=== PATIENT | male | born 1950 | race Caucasian/White ===

== ENCOUNTER 2017-09-12 12:26 | Inpatient (IN) | payer MEDICARE, OTHER ==
[~2017-09-12] VITALS: Ht 177.8 cm; Wt 106.3 kg
[2017-09-12] VITALS (9 sets, daily range): BP systolic 96–121; BP diastolic 58–82
[2017-09-12] MEDS ORDERED: IV NORMAL SALINE 1,000ML 1,000 ML IV SCH (12:29)
[2017-09-12] MEDS ORDERED: 0.9 % SODIUM CHLORIDE 10 ML DISP.SYRIN. IV PRN (12:30)
[2017-09-12] MEDS ORDERED: ASPIRIN 325 MG TABLET PO ONE ×2 (12:30→16:30)
--- NOTE | 2017-09-12 12:44 | PHYS DOC ---
Past History Past Medical History: A-Fib, Arrhythmia, Diabetes, GERD, High Cholesterol, Hypertension Past Surgical History: No Surgical History Smoking: Non-smoker Alcohol Use: None Drug Use: None Adult General Chief Complaint Chief Complaint: palpitations and shortness of breath [facility] HPI Patient is a pleasant 67-year-old male with a known history of diabetes, hypertension prior H or fibrillation that has been on therapy presents with palpitations and tachycardia. Patient's symptoms started as described as shortness of breath with a "" racing heartbeat he was at rest that time. He said the symptoms were intermittent but this morning when checking his blood pressure he noted it was low and he was getting some dizziness with the symptoms. He denied any chest pain, denies any change in medications, denies any shortness of breath at this time but did have some intermittently over the course of evening. Patient denies any nausea, vomiting at this time he did have some last night with symptoms. 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 Differential diagnosis: Acute myocardial ischemia, heart failure, cardiac tamponade, bronchospasm, pulmonary embolism, pneumothorax, pulmonary infection i.e. bronchitis or pneumonia, upper airway obstruction, anaphylaxis, aspiration , psychogenic, pulmonary contusion, toxidrome, pneumomediastinum, noncardiogenic pulmonary edema or ARDS, COPD, tuberculosis, cystic fibrosis, asthma, high altitude pulmonary edema, valvular dysfunction, cardiac dysrhythmia , stroke, neuromuscular diseases like myasthenia gravis gravis, ALS, Guillain- Moeller syndrome, metabolic acidosis to include diabetic ketoacidosis, sepsis, and obstructive disorders like massive obesity Review of Systems Review of Systems Constitutional: Denies fever or chills [] Eyes: Denies change in visual acuity, redness, or eye pain [] HENT: Denies nasal congestion or sore throat [] Respiratory: Denies cough positive for shortness of breath Cardiovascular: No additional information not addressed in HPI [] GI: Denies abdominal pain, vomiting, bloody stools or diarrhea . Positive for nausea[] : Denies dysuria or hematuria [] Musculoskeletal: Denies back pain or joint pain [] Integument: Denies rash or skin lesions [] Neurologic: Denies headache, positive for focal weakness or sensory changes positive for generalized weakness and weakness to the left side of his entire face including his eyebrow and forehead there is obvious droop consistent with Quan's palsy[] Endocrine: Denies polyuria or polydipsia [] All other systems were reviewed and found to be within normal limits, except as documented in this note. Current Medications Current Medications Current Medications Medications (Trade) Dose Ordered Sig/Joaquin Start Time Stop Time Status Last Admin Dose Admin Aspirin (Emy Aspirin) 325 mg 1X ONCE 09/12/17 12:30 09/12/17 12:31 UNV Sodium Chloride (Normal Saline Flush) 10 ml QSHIFT PRN 09/12/17 12:30 UNV Allergies Allergies Allergies Coded Allergies Type Severity Reaction Last Updated Verified No Known Drug Allergies 05/04/16 No Physical Exam Physical Exam Of the vital signs on the chart noted to be tachycardic and not tachypnea not hypoxic Constitutional: Well developed, well nourished, no acute distress, non-toxic appearance obvious asymmetry to the left side of the face with inability to move eyebrows. [] HENT: Normocephalic, atraumatic, bilateral external ears normal, oropharynx dry with poor dentition, no oral exudates, nose normal. [] Eyes: PERRLA, EOMI, conjunctiva normal, no discharge. [] Neck: Normal range of motion, no tenderness, supple, no stridor. [] Cardiovascular: Tachycardia with irregular irregular rhythm no gallops or rubs noted Lungs & Thorax: Bilateral breath sounds clear to auscultation [] Abdomen: Bowel sounds normal, soft, no tenderness, no masses, no pulsatile masses. [] Skin: Warm, dry, no erythema, no rash. [] Back: No tenderness, no CVA tenderness. [] Extremities: No tenderness, no cyanosis, no clubbing, ROM intact, no edema. [] Neurologic: Alert and oriented X 3, patient has facial palsy which involves the upper eyelid and eyebrow on the left consistent with Quan's palsy no other weakness or sensory changes are noted[] Psychologic: Affect normal, judgement normal, mood normal. [] EKG EKG []EKG read by me at 38 and 09/12/2017 patient's demonstrates a that is irregularly irregular with no discernible P waves there is heart rate of 112 QRS width is 82 units narrow but is irregular there is some inconsistent conduction there is no ST segment or T-wave changes consistent with acute cord ischemia. This looks like atrial fibrillation and RVR. But with closure examination of lead 2 this may be atrial flutter Repeated at approximately 1:26 PM 09/12/2017 177 which is within normal range. Interval is nondetectable as there is no P waves discernible associate with a QRS, QS width is 80 which is normal, QTC is 443 which is normal, looking at lead 2 patient has the apparent appearance of atrial flutter with 4:1 block. Radiology/Procedures Radiology/Procedures [] [address] [address] IMAGING REPORT Signed PATIENT: KEVIN VILLA ACCOUNT: [id number] : 1950 LOCATION: ER AGE: 67 SEX: M EXAM STATUS: PRE ER ORD. PHYSICIAN: DEMARCO ESCAMILLA MD REASON: chest pain PROCEDURE: PORTABLE CHEST 1V AP chest. History: Chest pain AP view was taken of the chest. Lungs are clear. Heart is normal in size without heart failure. There is no effusion. Impression: 1. No acute infiltrates. DICTATED AND SIGNED BY: SUSIE PICHARDO MD DATE: 09/12/17 125 CC: DEMARCO ESCAMILLA MD; MUSTAPHA CAVAZOS ~ Course & Med Decision Making Course & Med Decision Making Pertinent Labs and Imaging studies reviewed. (See chart for details) [] he presents with shortness of breath and sudden onset of palpitations with a history of end-stage fibrillation who is not miss his medications but began having symptoms of shortness of breath since last night about 8 PM. Patient comes in in A. fib and RVR patient's initial troponin, is negative but unfortunately his proBNP is 12,000. His chest x-rays unremarkable signs of congestive heart failure. Although patient is feeling markedly better patient may benefit from cardiology evaluation and bedside echocardiogram. He will also require additional troponins for the next 18 hours Differential diagnosis: Acute myocardial ischemia, heart failure, cardiac tamponade, bronchospasm, pulmonary embolism, pneumothorax, pulmonary infection i.e. bronchitis or pneumonia, upper airway obstruction, anaphylaxis, aspiration , psychogenic, pulmonary contusion, toxidrome, pneumomediastinum, noncardiogenic pulmonary edema or ARDS, COPD, tuberculosis, cystic fibrosis, asthma, high altitude pulmonary edema, valvular dysfunction, cardiac dysrhythmia , stroke, neuromuscular diseases like myasthenia gravis gravis, ALS, Guillain- Moeller syndrome, metabolic acidosis to include diabetic ketoacidosis, sepsis, and obstructive disorders like massive obesity Laboratory Tests Test 09/12/17 12:37 White Blood Count 8.6 x10^3/uL (4.0-11.0) Red Blood Count 4.77 x10^6/uL (4.30-5.70) Hemoglobin 16.0 g/dL (13.0-17.5) Hematocrit 46.6 % (39.0-53.0) Mean Corpuscular Volume 98 fL (79-100) Mean Corpuscular Hemoglobin 34 pg (25-35) Mean Corpuscular Hemoglobin Concent 34 g/dL (31-37) Red Cell Distribution Width 14.5 % (11.5-14.5) Platelet Count 178 x10^3/uL (140-400) Neutrophils (%) (Auto) 75 % (31-73) H Lymphocytes (%) (Auto) 16 % (24-48) L Monocytes (%) (Auto) 8 % (0-9) Eosinophils (%) (Auto) 1 % (0-3) Basophils (%) (Auto) 1 % (0-3) Neutrophils # (Auto) 6.5 x10^3uL (1.8-7.7) Lymphocytes # (Auto) 1.3 x10^3/uL (1.0-4.8) Monocytes # (Auto) 0.7 x10^3/uL (0.0-1.1) Eosinophils # (Auto) 0.1 x10^3/uL (0.0-0.7) Basophils # (Auto) 0.0 x10^3/uL (0.0-0.2) D-Dimer (Faye) 0.44 mg/L (0.00-0.50) Sodium Level 142 mmol/L (136-145) Potassium Level 4.0 mmol/L (3.5-5.1) Chloride Level 105 mmol/L (98-107) Carbon Dioxide Level 27 mmol/L (21-32) Anion Gap 10 (6-14) Blood Urea Nitrogen 19 mg/dL (8-26) Creatinine 0.8 mg/dL (0.7-1.3) Estimated GFR (Cockcroft-Gault) 96.4 Glucose Level 134 mg/dL (70-99) H Calcium Level 8.2 mg/dL (8.5-10.1) L Magnesium Level 2.0 mg/dL (1.8-2.4) Total Bilirubin 0.6 mg/dL (0.2-1.0) Direct Bilirubin 0.1 mg/dL (0.0-0.2) Aspartate Amino Transferase (AST) 14 U/L (15-37) L Alanine Aminotransferase (ALT) 28 U/L (16-63) Alkaline Phosphatase 58 U/L (46-116) Creatine Kinase 36 U/L (39-308) L Creatine Kinase MB (Mass) < 0.5 ng/mL (0.0-3.6) Creatine Kinase MB Relative Index 1.4 % (0-4) Troponin I Quantitative < 0.017 ng/mL (0-0.055) JQ-Pou-U-Type Natriuretic Peptide 1248 pg/mL (0-124) H Total Protein 6.2 g/dL (6.4-8.2) L Albumin 3.3 g/dL (3.4-5.0) L Lipase 116 U/L (73-393) Seed Cleaning Manager note: Dr. José Seed Cleaning Manager called at of the service service called at approximately 1:30 PM Consult called back at 1:31 PM Discussed the case I presented and they agreed with admission. Time of acceptance 1:31 PM "I have assessed this patient clinically and believe that their condition requires an admission to the hospital. After consulting the admitting physician about this case, they have asked that I admit this patient to their service as an inpatient based on the clinical presentation and my impression." Dragon Disclaimer Dragon Disclaimer This electronic medical record was generated, in whole or in part, using a voice recognition dictation system. Departure Departure: Impression: Primary Impression: Dyspnea Additional Impression: Atrial fibrillation with RVR Disposition: ADMITTED INPATIENT Admitting Physician: Deneen José Condition: GUARDED Referrals: MUSTAPHA CAVAZOS (PCP) Problem Qualifiers DEMARCO ESCAMILLA MD Sep 12, 2017 12:44
[2017-09-12] MEDS ORDERED: ASPIRIN 81 MG TAB.CHEW ONE (12:47)
[2017-09-12 12:51] LABS: BASO % 1 % (0-3); EOS # 0.1 x10^3/uL (0.0-0.7); EOS % 1 % (0-3); HEMATOCRIT 46.6 % (39.0-53.0); LYMPH # 1.3 x10^3/uL (1.0-4.8); LYMPH % 16 % (24-48); MEAN CORPUSCULAR HEMOGLOBIN 34 pg (25-35); MEAN CORPUSCULAR HGB CONC 34 g/dL (31-37); MEAN CORPUSCULAR VOLUME 98 fL (79-100); MONO # 0.7 x10^3/uL (0.0-1.1); MONO % 8 % (0-9); NEUT # 6.5 x10^3uL (1.8-7.7); NEUT % 75 % (31-73); PLATELET COUNT 178 x10^3/uL (140-400); RED BLOOD COUNT 4.77 x10^6/uL (4.30-5.70); RED CELL DISTRIBUTION WIDTH 14.5 % (11.5-14.5); WHITE BLOOD COUNT 8.6 x10^3/uL (4.0-11.0)
--- NOTE | 2017-09-12 12:53 | RAD ---
AP chest. History: Chest pain AP view was taken of the chest. Lungs are clear. Heart is normal in size without heart failure. There is no effusion. Impression: 1. No acute infiltrates.
[2017-09-12] MEDS ORDERED: VERAPAMIL 5 MG/2 ML VIAL. IV ONE ×3 (13:01→16:30)
[2017-09-12 13:13] LABS: ALBUMIN 3.3 g/dL (3.4-5.0); ALK PHOS 58 U/L (46-116); ALT (SGPT) 28 U/L (16-63); ANION GAP 10 (6-14); AST (SGOT) 14 U/L (15-37); BLOOD UREA NITROGEN 19 mg/dL (8-26); CALCIUM 8.2 mg/dL (8.5-10.1); CARBON DIOXIDE 27 mmol/L (21-32); CHLORIDE 105 mmol/L (98-107); CREATININE 0.8 mg/dL (0.7-1.3); DIRECT BILIRUBIN 0.1 mg/dL (0.0-0.2); GFR 96.4; GLUCOSE 134 mg/dL (70-99); LIPASE 116 U/L (73-393); SODIUM 142 mmol/L (136-145); TOTAL BILIRUBIN 0.6 mg/dL (0.2-1.0); TOTAL PROTEIN 6.2 g/dL (6.4-8.2)
[2017-09-12] MEDS ORDERED: ACETAMINOPHEN 325 MG TABLET PO PRN (13:45)
[2017-09-12] MEDS ORDERED: ONDANSETRON PF 4 MG/2 ML VIAL. IV PRN (13:45)
[2017-09-12] MEDS ORDERED: LISI2.5T PO (15:25)
[2017-09-12] MEDS ORDERED: CARV6.252 PO (15:25)
[2017-09-12] MEDS ORDERED: OXYC-328 PO (15:25)
[2017-09-12] MEDS ORDERED: ASPI-630 PO (15:25)
[2017-09-12] MEDS ORDERED: CANA300T PO (15:25)
[2017-09-12] MEDS ORDERED: POTA90TA2 PO (15:25)
[2017-09-12] MEDS ORDERED: IBUP800T19 PO (15:25)
[2017-09-12] MEDS ORDERED: SIMV20TA3 PO (15:25)
[2017-09-12] MEDS ORDERED: PRED5TAB PO (15:25)
[2017-09-12] MEDS ORDERED: ACETAMINOPHEN 500 MG TABLET PO PRN (16:30)
--- NOTE | 2017-09-12 16:44 | EKG ---
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
[2017-09-12] MEDS ORDERED: DIGOXIN IV 500 MCG/2 ML AMPUL. IV ONE ×2 (17:00→19:45)
[2017-09-12] MEDS ORDERED: oxyCODONE/APAP 10/325 1 TAB TABLET PO SCH (17:00)
[2017-09-12] MEDS: ENOXAPARIN ** NOTE DOSE ** SYRINGE SQ SCH (17:04)
[2017-09-12] MEDS: CARVEDILOL 6.25 MG TABLET PO SCH (17:05)
[2017-09-12] MEDS ORDERED: MORPHINE SULFATE 2 MG/ML DISP.SYRIN. IV PRN (17:30)
[2017-09-12] MEDS ORDERED: ZOLPIDEM 5 MG TABLET. PO PRN (17:30)
[2017-09-12] MEDS: HYDROcodone/APAP 10/325 1 TAB TABLET PO PRN (17:59)
--- NOTE | 2017-09-12 18:25 | HP ---
ADMIT DATE: 09/12/2017 REASON FOR ADMISSION: Atrial fibrillation with RVR. HISTORY OF PRESENT ILLNESS: This is a 67-year-old male who states yesterday he was not feeling quite right and he was able to take his pulse with a machine and it showed that it was 150. He called his primary care physician who told him to take 12.5 mg of Coreg and then another 12.5 in 2 hours. He did do that, but when he woke up this morning noticed that his heart rate was still 150. He could tell that it was racing, but did say that it was intermittent, did have a low blood pressure this morning as well. 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 He had previously had radiation and surgery. He also has a history of AFib with ablation 7 years ago, coronary artery disease with stent placement 7 years ago. MEDICATIONS: Reviewed and are available on the MAR. SOCIAL HISTORY: Tobacco, none. Alcohol, because of the pain on his face and not being controlled with Percocet, he has been drinking 6-8 ounces of rum a night. Did state that he did not have any rum last night. REVIEW OF SYSTEMS: No weight change. Positive for pain in his face and behind his ear. Positive for racing heart and some chest pain, associated with it. Denies shortness of breath. Denies fever or illness. IMMUNIZATIONS: Refuses flu and pneumonia shot. OBJECTIVE: VITAL SIGNS: Blood pressure 96/55, pulse in the Emergency Room was 135 and now it is currently is 102. GENERAL: He is in AFib with RVR. HEENT: Face with rafa complexion. He has a left Quan's palsy. He has a lesion behind the ear that has a small hole in the posterior ear with some drainage. The left face palpated very hard and also underneath his chin has a hardened area as well, probably the size of a golf ball. LUNGS: Clear. CARDIOVASCULAR: Irregular rhythm and rate. ABDOMEN: Soft, nontender. EXTREMITIES: With positive ankle edema. SKIN: Has extensive actinic keratosis on his hands and forearms. LABORATORY AND IMAGING DATA: CBC normal. Chemistry, troponins negative x 2. BNP 1248, glucose is 134, magnesium 2, potassium 4.0. D-dimer was normal. Chest x-ray: No acute infiltrates. EKG: AFib with RVR. ASSESSMENT: 1. Atrial fibrillation with rapid ventricular response, new onset. 2. 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 3. Left-sided Uqan's palsy. 4. Left-sided swelling and possible return of squamous cell with hardened masses. 5. Small pinpoint wound behind left ear with some drainage. 6. Chronic pain, unrelieved by Percocet. 7. History of atrial fibrillation with ablation. 8. History of coronary artery disease with stent placement. 9. Hypertension. 10. Diabetes. 11. Hypotension from verapamil. PLAN: The patient received 10 mg of IV verapamil in the Emergency Room around 01:00, this slowed down his rate quite a bit. However, after coming up to about 2 hours later, went back into a rapid ventricular rhythm and he was always in AFib. Blood pressure is somewhat low and precluded giving any further verapamil. He received 250 mg of digoxin x 1. We will treat his pain, cardiology consult and have to watch his hypotension from medications. JEFF JOYCE DO DR: VIC/gricel JOB#: [id number] / [id number]
[2017-09-12] MEDS: IV NORMAL SALINE 1,000ML 1,000 ML IV SCH (18:38)
[2017-09-12] MEDS: SIMVASTATIN 20 MG TABLET PO SCH (19:49)
[2017-09-12] MEDS: MORPHINE SULFATE 4 MG/ML DISP.SYRIN. IV PRN (20:55)
[2017-09-12] MEDS ORDERED: LORazepam 1 MG TABLET PO ONE (23:00)
[2017-09-13] VITALS (21 sets, daily range): BP systolic 86–133; BP diastolic 47–77
[2017-09-13] MEDS: MORPHINE SULFATE 4 MG/ML DISP.SYRIN. IV PRN ×5 (00:11→22:53)
[2017-09-13 00:27] LABS: CLARITY,URINE CLEAR; COLOR,URINE YELLOW
[2017-09-13 00:28] LABS: BACTERIA,URINE 0 /HPF (0-FEW); BILIRUBIN,URINE NEG (NEG); GLUCOSE,URINE 500 mg/dL (NEG); NITRITE,URINE NEG (NEG); RBC,URINE 0 /HPF (0-2); SQUAMOUS EPITHELIAL CELL,UR OCC /LPF; UROBILINOGEN,URINE 0.2 mg/dL (0.2 mg/dL); WBC,URINE OCC /HPF (0-4)
--- NOTE | 2017-09-13 02:50 | EKG ---
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
--- NOTE | 2017-09-13 02:55 | EKG ---
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
[2017-09-13] MEDS: IV NORMAL SALINE 1,000ML 1,000 ML IV SCH ×3 (04:47→17:31)
[2017-09-13] MEDS: ENOXAPARIN ** NOTE DOSE ** SYRINGE SQ SCH (06:35)
[2017-09-13] MEDS ORDERED: ASPIRIN 325 MG TABLET PO SCH (08:00)
[2017-09-13] MEDS: predniSONE 5 MG TABLET PO SCH (08:00)
[2017-09-13] MEDS: CARVEDILOL 6.25 MG TABLET PO SCH (08:00)
[2017-09-13] MEDS: NON FORMULARY ITEM (Canagliflozin (Invokana) 300 MG) PO SCH (09:00)
[2017-09-13] MEDS ORDERED: NON FORMULARY ITEM (Potassium Gluconate 90 MG) PO SCH (09:00)
[2017-09-13 09:20] LABS: BASO # 0.1 x10^3/uL (0.0-0.2); BASO % 1 % (0-3); EOS # 0.1 x10^3/uL (0.0-0.7); EOS % 1 % (0-3); HEMATOCRIT 43.4 % (39.0-53.0); HEMOGLOBIN 14.9 g/dL (13.0-17.5); LYMPH # 1.2 x10^3/uL (1.0-4.8); LYMPH % 14 % (24-48); MEAN CORPUSCULAR HEMOGLOBIN 33 pg (25-35); MEAN CORPUSCULAR HGB CONC 34 g/dL (31-37); MEAN CORPUSCULAR VOLUME 98 fL (79-100); MONO # 0.7 x10^3/uL (0.0-1.1); MONO % 8 % (0-9); NEUT # 6.2 x10^3uL (1.8-7.7); NEUT % 76 % (31-73); PLATELET COUNT 157 x10^3/uL (140-400); RED BLOOD COUNT 4.45 x10^6/uL (4.30-5.70); RED CELL DISTRIBUTION WIDTH 13.8 % (11.5-14.5); WHITE BLOOD COUNT 8.2 x10^3/uL (4.0-11.0)
[2017-09-13 09:33] LABS: ALBUMIN 2.8 g/dL (3.4-5.0); CREATININE 0.7 mg/dL (0.7-1.3); GFR 112.5; POTASSIUM 4.3 mmol/L (3.5-5.1); TOTAL BILIRUBIN 0.5 mg/dL (0.2-1.0); TOTAL PROTEIN 5.7 g/dL (6.4-8.2)
[2017-09-13] MEDS ORDERED: METOPROLOL TART IMMED RELEASE 50 MG TABLET PO ONE (13:30)
[2017-09-13] MEDS ORDERED: CALCIUM CARBONATE 500 MG TAB.CHEW ONE (14:13)
[2017-09-13] MEDS ORDERED: IOHEXOL 300 MG/ML 75 ML VIAL. IV ONE (14:15)
[2017-09-13] MEDS ORDERED: CALCIUM CARBONATE 500 MG TAB.CHEW PO PRN (14:15)
--- NOTE | 2017-09-13 15:09 | RAD ---
PQRS Compliance Statement: One or more of the following individualized dose reduction techniques were utilized for this examination: 1. Automated exposure control 2. Adjustment of the mA and/or kV according to patient size 3. 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 TECHNIQUE: Helical CT imaging of the brain and of the facial bones is performed after 70 cc of Omnipaque 350 IV contrast. Findings: There is no midline shift or mass effect in the brain. Ventricles and sulci are normal for patient age. No abnormal intracranial enhancement in the brain is identified. Cordova-white matter differentiation is preserved. No extra-axial fluid collection. The globes and orbits are intact. The mastoid air cells are aerated. Paranasal sinuses are clear. No acute calvarial fracture. In the subcutaneous fat anterior and inferior to the left external auditory canal there is a rim-enhancing hypodense collection measuring up to 2 cm AP by 1.1 cm transverse by 3.8 cm craniocaudal. Fluid collection is well seen on coronal image 31 and axial image 30. The left parotid gland is surgically absent. There are a couple of surgical clips. No cervical adenopathy is seen. Minimal grade 1 anterolisthesis of C2 on C3. IMPRESSION: 1. Small subcutaneous abscess anterior and inferior to the left external auditory canal. 2. Left parotid gland is surgically absent. Electronically signed by: Shine Ghosh MD (09/13/2017 3:06 PM) [id number]
[2017-09-13] MEDS ORDERED: ONDANSETRON PF 4 MG/2 ML VIAL. ONE (16:39)
[2017-09-13] MEDS ORDERED: ONDANSETRON PF 4 MG/2 ML VIAL. IV PRN (17:15)
--- NOTE | 2017-09-13 19:00 | PDOC2 ---
CONSULT Date of Admission DATE: 09/13/17 TIME: 18:50 Reason for Consult: Atrial fibrillation, paroxysmal. Referring Physician: Requesting physician: Deneen José DO Chief Complaint Palpitations. 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 He has not had atrial fibrillation ever since his ablation. However, on Wednesday night, he developed palpitations. He felt as though his heart was going fast and irregular. He did not seek immediate medical attention at that time. However, when the palpitations persisted, he presented to [facility] on 09/12/2017. He was found to be in atrial fibrillation with rapid ventricular rate. A Cardiology consultation was then requested. He denies any chest discomfort, dyspnea, paroxysmal nocturnal dyspnea, orthopnea, lightheadedness, syncope, or lower extremity edema. Cardiovascular: AFIB, CAD, HTN, UT, hyperipidemia Family History He does not know of any family history of premature coronary artery disease. Smoke: No ALCOHOL: occassional Drugs: None Current Medications Current Medications Aspirin (Emy Aspirin) 325 mg 1X ONCE PO Last administered on 09/12/17at 12:55 ; Start 09/12/17 at 12:30; Stop 09/12/17 at 13:01; Status DC Sodium Chloride 1,000 ml @ 1,000 mls/hr Q1H IV Last administered on 09/12/17at 12:54; Start 09/12/17 at 12:29; Stop 09/12/17 at 13:28; Status DC Sodium Chloride (Normal Saline Flush) 10 ml QSHIFT PRN IV AFTER MEDS AND BLOOD DRAWS; Start 09/12/17 at 12:30 Aspirin (Children'S Aspirin) 81 mg STK-MED ONCE .ROUTE ; Start 09/12/17 at 12:47 ; Stop 09/12/17 at 12:48; Status DC Verapamil HCl (Verapamil HCl) 10 mg 1X ONCE IV Last administered on 09/12/17at 13:03; Start 09/12/17 at 13:15; Stop 09/12/17 at 13:16; Status DC Verapamil HCl (Verapamil HCl) 5 mg STK-MED ONCE IV ; Start 09/12/17 at 13:01; Stop 09/12/17 at 13:04; Status DC Ondansetron HCl (Zofran) 4 mg PRN Q4HRS PRN IV NAUSEA/VOMITING; Start 09/12/17 at 13:45; Stop 09/13/17 at 13:44; Status DC Morphine Sulfate (Morphine 4mg Syringe) 4 mg PRN Q2HR PRN IV PAIN Last administered on 09/13/17at 13:50; Start 09/12/17 at 13:45; Stop 09/13/17 at 13:44 ; Status DC Sodium Chloride 1,000 ml @ 100 mls/hr Q10H IV Last administered on 09/13/17at 17:31; Start 09/12/17 at 13:38; Stop 09/13/17 at 13:37; Status DC Acetaminophen (Tylenol) 650 mg PRN Q4HRS PRN PO FEVER; Start 09/12/17 at 13:45 ; Stop 09/13/17 at 13:44; Status DC Verapamil HCl (Verapamil HCl) 5 mg 1X ONCE IV ; Start 09/12/17 at 16:30; Stop 09/12/17 at 16:55; Status DC Digoxin (Lanoxin) 250 mcg 1X ONCE IV Last administered on 09/12/17at 17:03; Start 09/12/17 at 17:00; Stop 09/12/17 at 17:01; Status DC Enoxaparin Sodium (Lovenox 100mg Syringe) 100 mg Q12H SQ Last administered on at 06:35; Start 09/12/17 at 17:00; Stop 09/13/17 at 13:36; Status DC Aspirin (p[employer] Technology Aspirin) 325 mg 1X ONCE PO ; Start 09/12/17 at 16:30; Stop 09/12 at 16:53; Status DC Aspirin (p[employer] Aspirin) 325 mg DAILYWBKFT PO Last administered on 09/13/17at 08: 00; Start 09/13/17 at 08:00 Carvedilol (Coreg) 6.25 mg BIDWMEALS PO Last administered on 09/13/17at 08:00; Start 09/12/17 at 17:00; Stop 09/13/17 at 13:18; Status DC Oxycodone/ Acetaminophen (Percocet 10/325) 1 tab QID PO ; Start 09/12/17 at 17: 00; Stop 09/12/17 at 17:43; Status DC Prednisone (Prednisone) 10 mg DAILY PO Last administered on 09/13/17at 08:00; Start 09/13/17 at 09:00 Simvastatin (Zocor) 20 mg HS PO Last administered on 09/12/17at 19:49; Start 05/22 at 21:00 Non-Formulary Medication (Canagliflozin (Invokana)) 300 mg DAILY PO Last administered on 09/13/17at 09:00; Start 09/13/17 at 09:00; Status UNV Non-Formulary Medication (Potassium Gluconate ) 90 mg DAILY PO ; Start 09/13/17 at 09:00; Stop 09/13/17 at 09:00; Status DC Acetaminophen (Tylenol) 1,000 mg Q8HRS PRN PO MODERATE PAIN; Start 09/12/17 at 16:30 Acetaminophen/ Hydrocodone Bitart (Lortab 10/325) 1 tab PRN Q4HRS PRN PO PAIN Last administered on 09/12/17at 17:59; Start 09/12/17 at 17:30 Zolpidem Tartrate (Ambien) 5 mg PRN QHS PRN PO INSOMNIA; Start 09/12/17 at 17: 30 Morphine Sulfate (Morphine 2mg Syringe) 2 mg PRN Q2HR PRN IV PAIN; Start at 17:30 Digoxin (Lanoxin) 250 mcg 1X ONCE IV Last administered on 09/12/17at 19:49; Start 09/12/17 at 19:45; Stop 09/12/17 at 19:46; Status DC Lorazepam (Ativan) 1 mg 1X ONCE PO Last administered on 09/12/17at 23:16; Start 09/12/17 at 23:00; Stop 09/12/17 at 23:07; Status DC Metoprolol Tartrate (Lopressor) 50 mg BID PO ; Start 09/13/17 at 21:00 Metoprolol Tartrate (Lopressor) 50 mg 1X ONCE PO Last administered on at 13:49; Start 09/13/17 at 13:30; Stop 09/13/17 at 13:31; Status DC Apixaban (Eliquis) 5 mg BID PO ; Start 09/13/17 at 21:00 Morphine Sulfate (Morphine 4mg Syringe) 4 mg PRN Q2HR PRN IV PAIN; Start at 14:00 Iohexol (Omnipaque 300 Mg/ml) 75 ml 1X ONCE IV Last administered on 09/13/17at 14:23; Start 09/13/17 at 14:15; Stop 09/13/17 at 14:16; Status DC Calcium Carbonate/ Glycine (Tums) 500 mg STK-MED ONCE .ROUTE ; Start 09/13/17 at 14:13; Stop 09/13/17 at 14:14; Status DC Calcium Carbonate/ Glycine (Tums) 500 mg PRN AFTMEALHC PRN PO INDIGESTION; Start 09/13/17 at 14:15 Ondansetron HCl (Zofran) 4 mg STK-MED ONCE .ROUTE ; Start 09/13/17 at 16:39; Stop 09/13/17 at 16:40; Status DC Ondansetron HCl (Zofran) 4 mg PRN Q6HRS PRN IV NAUSEA/VOMITING; Start 09/13/17 at 17:15 Cephalexin HCl (Keflex) 500 mg QID PO ; Start 09/13/17 at 21:00 Lactobacillus Rhamnosus (Culturelle) 1 cap BID PO ; Start 09/13/17 at 21:00 Pregabalin (Lyrica) 75 mg BID PO ; Start 09/13/17 at 21:00; Status UNV Active Scripts Active Reported Potassium Gluconate 90 Mg Tablet 90 Mg PO DAILY LAST DOSE GIVEN: DATE: TIME: NEXT DOSE DUE: DATE: TIME: Percocet 10-325 Mg Tablet (Oxycodone Hcl/Acetaminophen) 1 Each Tablet 1 Tab PO QID LAST DOSE GIVEN: DATE: TIME: NEXT DOSE DUE: DATE: TIME: Invokana (Canagliflozin) 300 Mg Tablet 300 Mg PO DAILY LAST DOSE GIVEN: DATE: TIME: NEXT DOSE DUE: DATE: TIME: Ibuprofen 800 Mg Tablet 1 Tab PO TID PRN LAST DOSE GIVEN: DATE: TIME: NEXT DOSE DUE: DATE: TIME: Aspirin 81 Mg Tab.chew 81 Mg PO DAILY LAST DOSE GIVEN: DATE: TIME: NEXT DOSE DUE: DATE: TIME: Prednisone 5 Mg Tablet 10 Mg PO DAILY 10 MG DOSE ON 09-12-17 IS LAST DOSE Carvedilol 6.25 Mg Tablet 6.25 Mg PO BIDWMEALS LAST DOSE GIVEN: DATE: TIME: NEXT DOSE DUE: DATE: TIME: Lisinopril 2.5 Mg Tablet 2.5 Mg PO DAILY LAST DOSE GIVEN: DATE: TIME: NEXT DOSE DUE: DATE: TIME: Simvastatin 20 Mg Tablet 20 Mg PO HS LAST DOSE GIVEN: DATE: TIME: NEXT DOSE DUE: DATE: TIME: Allergies: Coded Allergies: No Known Drug Allergies (Unverified , 05/04/16) Review of System Review of 10 organ systems is as per the history of present illness, otherwise negative. General: Alert, Oriented X3, Cooperative, No acute distress HEENT: EOMI, Mucous membr. moist/pink, Other (He has a left facial droop and evidence of previous left sided surgery near the posterior aspect of his left jaw.) Lungs: Clear to auscultation, Normal air movement Heart: Normal S1, Normal S2, No murmurs, Other ( Tachycardia with irregular rhythm.) Abdomen: Normal bowel sounds, Soft Extremities: No clubbing, No cyanosis, Normal pulses, No tenderness/swelling, Other ( Trace bilateral pretibial edema.) Skin: No rashes, No breakdown Neuro: Normal speech, Strength at 5/5 X4 ext, Reflexes 2+, Other (Cranial nerves 3-12 appear intact other than left facial droop.) Psych/Mental Status: Mental status NL, Mood NL VITALS Vital Signs Date Time Temp Pulse Resp B/P (MAP) Pulse Ox O2 Delivery O2 Flow Rate FiO2 09/13/17 18:12 86 20 114/66 (82) 96 Room Air 09/13/17 14:00 98.4 Labs Laboratory Tests Test 09/12/17 12:37 09/12/17 16:40 09/12/17 17:13 09/12/17 19:30 White Blood Count 8.6 x10^3/uL (4.0-11.0) Red Blood Count 4.77 x10^6/uL (4.30-5.70) Hemoglobin 16.0 g/dL (13.0-17.5) Hematocrit 46.6 % (39.0-53.0) Mean Corpuscular Volume 98 fL (79-100) Mean Corpuscular Hemoglobin 34 pg (25-35) Mean Corpuscular Hemoglobin Concent 34 g/dL (31-37) Red Cell Distribution Width 14.5 % (11.5-14.5) Platelet Count 178 x10^3/uL (140-400) Neutrophils (%) (Auto) 75 % (31-73) Lymphocytes (%) (Auto) 16 % (24-48) Monocytes (%) (Auto) 8 % (0-9) Eosinophils (%) (Auto) 1 % (0-3) Basophils (%) (Auto) 1 % (0-3) Neutrophils # (Auto) 6.5 x10^3uL (1.8-7.7) Lymphocytes # (Auto) 1.3 x10^3/uL (1.0-4.8) Monocytes # (Auto) 0.7 x10^3/uL (0.0-1.1) Eosinophils # (Auto) 0.1 x10^3/uL (0.0-0.7) Basophils # (Auto) 0.0 x10^3/uL (0.0-0.2) D-Dimer (Faye) 0.44 mg/L (0.00-0.50) Sodium Level 142 mmol/L (136-145) Potassium Level 4.0 mmol/L (3.5-5.1) Chloride Level 105 mmol/L (98-107) Carbon Dioxide Level 27 mmol/L (21-32) Anion Gap 10 (6-14) Blood Urea Nitrogen 19 mg/dL (8-26) Creatinine 0.8 mg/dL (0.7-1.3) Estimated GFR (Cockcroft-Gault) 96.4 Glucose Level 134 mg/dL (70-99) Calcium Level 8.2 mg/dL (8.5-10.1) Magnesium Level 2.0 mg/dL (1.8-2.4) Total Bilirubin 0.6 mg/dL (0.2-1.0) Direct Bilirubin 0.1 mg/dL (0.0-0.2) Aspartate Amino Transf (AST/SGOT) 14 U/L (15-37) Alanine Aminotransferase (ALT/SGPT) 28 U/L (16-63) Alkaline Phosphatase 58 U/L (46-116) Creatine Kinase 36 U/L (39-308) Creatine Kinase MB (Mass) < 0.5 ng/mL (0.0-3.6) Creatine Kinase MB Relative Index 1.4 % (0-4) Troponin I Quantitative < 0.017 ng/mL (0-0.055) < 0.017 ng/mL (0-0.055) < 0.017 ng/mL (0-0.055) OP-Btv-U-Type Natriuretic Peptide 1248 pg/mL (0-124) Total Protein 6.2 g/dL (6.4-8.2) Albumin 3.3 g/dL (3.4-5.0) Lipase 116 U/L (73-393) Thyroid Stimulating Hormone (TSH) 1.681 uIU/mL (0.358-3.740) Glucose (Fingerstick) 138 mg/dL (70-99) Test 09/12/17 21:16 09/12/17 23:45 09/13/17 09:10 Glucose (Fingerstick) 113 mg/dL (70-99) 102 mg/dL (70-99) Urine Collection Type Unknown Urine Color Yellow Urine Clarity Clear Urine pH 7.0 Urine Specific Alpine 1.020 Urine Protein Neg (NEG-TRACE) Urine Glucose (UA) 500 mg/dL (NEG) Urine Ketones (Stick) Neg mg/dL (NEG) Urine Blood Neg (NEG) Urine Nitrite Neg (NEG) Urine Bilirubin Neg (NEG) Urine Urobilinogen Dipstick 0.2 mg/dL (0.2 mg/dL) Urine Leukocyte Esterase Neg (NEG) Urine RBC 0 /HPF (0-2) Urine WBC Occ /HPF (0-4) Urine Squamous Epithelial Cells Occ /LPF Urine Bacteria 0 /HPF (0-FEW) White Blood Count 8.2 x10^3/uL (4.0-11.0) Red Blood Count 4.45 x10^6/uL (4.30-5.70) Hemoglobin 14.9 g/dL (13.0-17.5) Hematocrit 43.4 % (39.0-53.0) Mean Corpuscular Volume 98 fL (79-100) Mean Corpuscular Hemoglobin 33 pg (25-35) Mean Corpuscular Hemoglobin Concent 34 g/dL (31-37) Red Cell Distribution Width 13.8 % (11.5-14.5) Platelet Count 157 x10^3/uL (140-400) Neutrophils (%) (Auto) 76 % (31-73) Lymphocytes (%) (Auto) 14 % (24-48) Monocytes (%) (Auto) 8 % (0-9) Eosinophils (%) (Auto) 1 % (0-3) Basophils (%) (Auto) 1 % (0-3) Neutrophils # (Auto) 6.2 x10^3uL (1.8-7.7) Lymphocytes # (Auto) 1.2 x10^3/uL (1.0-4.8) Monocytes # (Auto) 0.7 x10^3/uL (0.0-1.1) Eosinophils # (Auto) 0.1 x10^3/uL (0.0-0.7) Basophils # (Auto) 0.1 x10^3/uL (0.0-0.2) Sodium Level 139 mmol/L (136-145) Potassium Level 4.3 mmol/L (3.5-5.1) Chloride Level 106 mmol/L (98-107) Carbon Dioxide Level 29 mmol/L (21-32) Anion Gap 4 (6-14) Blood Urea Nitrogen 16 mg/dL (8-26) Creatinine 0.7 mg/dL (0.7-1.3) Estimated GFR (Cockcroft-Gault) 112.5 BUN/Creatinine Ratio 23 (6-20) Glucose Level 121 mg/dL (70-99) Calcium Level 8.0 mg/dL (8.5-10.1) Magnesium Level 1.8 mg/dL (1.8-2.4) Total Bilirubin 0.5 mg/dL (0.2-1.0) Aspartate Amino Transf (AST/SGOT) 12 U/L (15-37) Alanine Aminotransferase (ALT/SGPT) 22 U/L (16-63) Alkaline Phosphatase 53 U/L (46-116) Total Protein 5.7 g/dL (6.4-8.2) Albumin 2.8 g/dL (3.4-5.0) Albumin/Globulin Ratio 1.0 (1.0-1.7) Images NUCLEAR STRESS TEST IMPRESSION (07/17/2015): Normal myocardial perfusion scan. Normal left ventricular systolic function. Ejection fraction: 61%. There is no stress induced left ventricular dilatation or increase in lung to heart ratio. There were no diagnostic stress induced ECG changes. The ECG was low voltage. There were frequent PAC's. There was a normal heart rate and a normal blood pressure response to stress. There was no chest pain during stress. Poor exercise tolerance. No previous study available for comparison. ECHOCARDIOGRAM IMPRESSION (07/17/2015): This is a technically difficult study due to body habitus. The left ventricular systolic function appears normal. There is aortic valve sclerosis and trace aortic regurgitation. The estimated pulmonary artery systolic pressure is normal at 29 mmHg. Compared to the report (images were not available for review) of the study dated 12/30/2010, there is no significant change. ECHOCARDIOGRAM IMPRESSION (07/26/2012): This is a technically difficult study. There is normal left ventricular chamber size and wall thickness with normal regional and global left ventricular systolic function with an estimated ejection fraction of 64%. The left ventricular diastolic parameters appear normal. There is mild aortic regurgitation. There is trace mitral, pulmonic and tricuspid regurgitation. The estimated pulmonary artery systolic pressure is normal at 34 mmHg. Compared to the study dated 12/30/2010, the left atrium now appears normal in size. ELECTROCARDIOGRAM (07/31/2013): Sinus rhythm with poor R wave progression, nonspecific T wave changes in the septal leads, and low voltage in the precordial leads. LIMITED ECHOCARDIOGRAM IMPRESSION (12/30/2010): There is normal left ventricular chamber size and wall thickness with normal regional and global left ventricular systolic function with an estimated ejection fraction of 63%. The left atrium appears mildly dilated. Compared to the study dated 08/28/2010, the left and right ventricular systolic function now appear normal. CARDIAC CATHETERIZATION AND PERCUTANEOUS CORONARY INTERVENTION IMPRESSION (08/27): 1. Mild pulmonary hypertension, but I was unable to confirm the actual pulmonary pressure since the Chelsea-Yolanda catheter would not advance into the pulmonary artery. Nevertheless, there was mild right ventricular hypertension indicative of at least mild pulmonary hypertension. 2. Normal left heart pressures. 3. Status post successful stent placement to the left circumflex coronary artery with a 2.5 x 23 mm bare metal Vision stent with 0% residual stenosis and JOVITA-III flow. 4. Status post successful stent placement to the mid right coronary artery with a 3 x 18 mm bare metal Mini-Vision stent with 0% residual stenosis and JOVITA-III flow. 5. There is [id number] left ventricular systolic dysfunction with an estimated ejection fraction of 30%. 6. There is [id number]-[id number] mitral regurgitation. 7. The patient remains in atrial fibrillation with a rapid ventricular rate. Assessment/Plan Atrial fibrillation, paroxysmal. As above, he has not had atrial fibrillation in quite some time as 1st week until. He now has recurrent atrial fibrillation that likely started on Wednesday. His heart rates are presently poorly controlled. I will change his carvedilol over to metoprolol ER. This may have less of a chance of causing hypotension compared to the carvedilol. I will also start the patient on oral anticoagulation with Eliquis 5 mg 2 times a day. When we start the Eliquis, he can stop the Lovenox he is currently receiving. If we can get his heart rates under control, then we can consider discharging him to home and have him return to the hospital for a cardioversion in approximately 6 weeks after therapy with oral anticoagulation. If we cannot get his heart rates under control, we may need to consider transfer to [facility] for a transesophageal echocardiogram and cardioversion. Coronary artery disease. He does not appear to be having any angina. His troponin levels are negative. Since we will be starting Eliquis for the atrial fibrillation, we can stop his aspirin. I will be adjusting his beta-ramon as outlined above. I recommend he continue on statin medication. Ischemic cardiomyopathy. He has a prior history of ischemic cardiomyopathy that improved following his coronary intervention and atrial fibrillation ablation. His last echocardiogram was in 2016. I recommend a follow-up echocardiogram at this time. Essential hypertension. He has actually been having some low blood pressures here in the hospital. I will adjust his beta-ramon as outlined above. Hypercholesterolemia, pure. Continue statin medication. Problems: MISSY ARREGUIN Jr, MD Sep 13, 2017 19:00
[2017-09-13] MEDS: SIMVASTATIN 20 MG TABLET PO SCH (21:04)
[2017-09-13] MEDS: LACTOBACILLUS RHAMNOSUS GG 1 CAPSULE. PO SCH (21:04)
[2017-09-13] MEDS: CEPHALEXIN 250 MG CAPSULE PO SCH (21:05)
[2017-09-13] MEDS: METOPROLOL TART IMMED RELEASE 50 MG TABLET PO SCH (21:05)
[2017-09-13] MEDS: APIXABAN 5 MG TABLET. PO SCH (21:05)
[2017-09-13] MEDS: PREGABALIN 75 MG CAPSULE PO SCH (21:05)
--- NOTE | 2017-09-13 21:25 | PN ---
DATE: 09/13/2017 SUBJECTIVE: The patient was admitted yesterday with atrial fibrillation, rapid ventricular response and he also complaining of left-sided facial pain. Apparently has squamous cell carcinoma diagnosed last year and has had surgery done at [facility] and was treated with radiation therapy by Dr. Dill, [facility]. He apparently was treated with verapamil only to cause marked hypotension and was given also digoxin only 250 mcg IV once. However, he continued to be in atrial fibrillation with rapid ventricular response aggravated by exertion. He denied any chest pain or shortness of breath. OBJECTIVE: GENERAL: When I examined him this afternoon, he was resting slightly propped up in bed, in no apparent distress, slightly pale, but no jaundice, cyanosis, or thyromegaly. No jugular venous distension. No limb edema. VITAL SIGNS: His heart rate was 98, blood pressure 119/68, temperature was 98, respiratory rate was 20, and oxygen saturation was 97% on room air HEAD, EYES, EARS, NOSE, AND THROAT: Showed normocephalic. He clearly has left-sided facial palsy with marked swelling on the left side of the face with a draining sinus below the left ear. NECK: Supple. HEART: Showed normal and regular first heart sound. CHEST: Shows central trachea, equal bilateral expansion, air entry to auscultation. No crepitation or rhonchi. ABDOMEN: Distended, soft, nontender. No guarding or rigidity. No organomegaly. All hernial orifice intact. Bowel sounds normal. NEUROLOGIC: He is awake, alert, has very clear left-sided facial palsy, otherwise all his other cranial nerves are intact. He moves extremities without difficulty, ambulates without assistance or assistive devices. 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 LABORATORY DATA: Showed a white cell count of 8200, hemoglobin 14.9, hematocrit 43, MCV 98, and platelet count of 157,000. Serum sodium was 139, potassium 4.3, chloride 106, bicarbonate 29, anion gap of 4, BUN 16, creatinine 0.7, estimated GFR was 112 mL per minute. His glucose was 121, calcium was 8, magnesium was 1.8. Total bilirubin, AST, ALT, alkaline phosphatase were normal. Total protein was 5.7, albumin 2.8. His D-dimer was 0.44. His chest x-ray showed that his lungs are clear, heart is normal in size without any heart failure. There is no effusion. 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 He has prominent facial nerve palsy and normally is not painful, has marked induration in the ____ temporomandibular joint with a draining sinus below the left ear. PLAN: My plan is to arrange for a CT scan of head and maxillofacial area. We have consulted the Cardiology team from [facility] for a better control of his heart rate and also check his thyroid function. TOM BARAHONA MD DR: DARYL/gricel JOB#: [id number] / [id number]
[2017-09-14] VITALS (16 sets, daily range): BP systolic 103–155; BP diastolic 49–87
--- NOTE | 2017-09-14 00:40 | CONS ---
DATE OF CONSULTATION: 09/12/2017 REFERRING PHYSICIAN: Dr. Strauss. REASON FOR CONSULTATION: Severe left facial pain. HISTORY OF PRESENT ILLNESS: This is a 67-year-old male who has had a longstanding history of left facial palsy -- Quan's palsy diagnosed in 06/2017, has had severe left facial pain for several months. 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 His left facial palsy has not improved. Current head CT scan revealed no acute intracranial process, but the CT scan of the left maxillofacial bone with a contrast revealed small subcutaneous abscess anterior and inferior to the left external auditory canal. The patient stated he has been treated with antibiotic -- clindamycin for approximately 1-1/2 months without significant relief of his symptoms. Currently, the patient was placed on Keflex. The patient has been on pain control medications including narcotics - oxycodone for several weeks prior to this admission. Gabapentin has failed to control his neuropathic symptoms. The reason for admission was paroxysmal atrial fibrillation with rapid ventricular response. He was treated with intravenous Rapamune, which caused hypotension, required a bolus of IV fluid and digoxin at 250 mcg once. He denies headaches, visual disturbances, nausea, vomiting, chest pain, shortness of breath. He denied dysarthria, dysphagia, weakness or paresthesia. The patient described his left facial pain as intermittent electrical severe pain confined to the left face in the trigeminal nerve distributions. PAST MEDICAL HISTORY: Significant for paroxysmal atrial fibrillation, congestive heart failure, ischemic cardiomyopathy, coronary artery disease status post stent placement, hypertension, hyperlipidemia, diabetes mellitus, skin cancer, and Quan's palsy as described above. PAST SURGICAL HISTORY: Significant for left parotid gland resection due to squamous cell carcinoma required radiation therapy, status post cardiac ablation several years ago. SOCIAL HISTORY: The patient denies smoking, but he drinks alcohol. He denies illicit drug use. CURRENT MEDICATIONS: Cephalexin 500 mg q.i.d., Eliquis 5 mg twice daily, metoprolol 50 mg twice daily, Zofran 4 mg q.6 hours IV p.r.n. for nausea and vomiting, morphine sulfate 4 mg. q.2 hours p.r.n. IV, Invokana 300 mg p.o. daily, prednisone 10 mg p.o. daily, simvastatin 20 mg at bedtime, Ambien 5 mg at bedtime for insomnia and hydrocodone/hydrocodone 10/325 mg q.4. hours p.r.n. for pain, alternate with Tylenol. ALLERGIES: No known drug allergies. REVIEW OF SYSTEMS: A 10-point review of system was performed as mentioned above in history of present illness. PHYSICAL EXAMINATION: GENERAL: Obese white male, not in acute distress. He weighs 234.3 pounds. VITAL SIGNS: Blood pressure is 121/64, respiratory rate 18, pulse is 109 irregular, temperature is 98.2, and oxygen saturation 97% on room air. HEENT: Atraumatic. The patient had a small abscess anterior and inferior left ear. NECK: Supple. Negative for carotid bruit, lymphadenopathy, thyromegaly or JVD. LUNGS: Clear to A and P. CARDIOVASCULAR: Regular rhythm, normal S1, S2. ABDOMEN: Soft. Bowel sounds positive. EXTREMITIES: Negative for cyanosis, clubbing or pitting edema. NEUROLOGIC: 1. MENTAL STATUS: The patient is alert and oriented x 3. Speech is fluent. There is no language dysfunction. Memory, judgment, and abstracting thinking are normal. The patient denies hallucination or delusion. 2. CRANIAL NERVES: Visual aquino are full. The pupils are reactive to light and accommodation. The extraocular movements are intact. There is no nystagmus. There is a complete left facial palsy -- Quan's palsy. The hearing is intact bilaterally. The palate is elevated symmetrically. Sternocleidomastoid muscles are powerful bilaterally. The patient shrugs his shoulders symmetrically, protrudes her tongue in the midline without fasciculation or atrophy. 3. MOTOR EXAMINATION: No focal muscle bulk was seen. The tone is normal. The strength is 5/5 throughout. 4. SENSORY EXAMINATION: Revealed diminished pinprick and light touch senses over the left face compared to that on the right side. Sensory examination elsewhere was normal to pinprick, light touch, vibratory, and position senses. Deep tendon reflexes were symmetric and hypoactive with absent Achilles responses. Gait: The patient has steady stance and normal coordination. Rapid alternating [id number] and [id number]. LABORATORY DATA: CBC revealed white blood cells of 8200, hemoglobin 14.9, hematocrit 43.4, platelet count 157,000. Chemistry revealed sodium of 139, potassium 4.3, chloride 106, CO2 29, BUN 16, creatinine 0.7, glucose 113, and calcium is 8. Liver enzymes were normal with low AST. Magnesium is 1.8. Urinalysis is negative for an urinary tract infection. D-dimer is 0.44. Nasal screen for MRSA is negative. DIAGNOSTIC DATA: Chest x-ray revealed no acute cardiopulmonary process. Initial head CT scan and left facial and maxillary bone revealed evidence of a small subcutaneous abscess anterior and inferior to the left external auditory canal. IMPRESSION: 1. Severe left facial pain described as a neuropathic pain, probably involved the left trigeminal nerve, previous surgery and radiation may have contributed to the current symptoms. 2. Long history of left facial palsy -- Quan's palsy with marked residual deficit. 3. Multiple medical problems include atrial fibrillation with current ventricular responses, hypertension, hyperlipidemia, diabetes mellitus, and status post removal of left parotid gland, and squamous cell carcinoma. RECOMMENDATIONS: 1. Continue with the current management initiated by Dr. Strauss, the patient has been on Lortab. 2. We will start the patient on Lyrica at 75 mg twice daily. 3. Continue with the current Cardiology recommendations. M Dilma SOLORIO MD DR: DANIEL/gricel JOB#: [id number] / [id number]
[2017-09-14 06:37] LABS: HEMOGLOBIN 14.7 g/dL (13.0-17.5); RED BLOOD COUNT 4.37 x10^6/uL (4.30-5.70); WHITE BLOOD COUNT 7.4 x10^3/uL (4.0-11.0)
[2017-09-14 06:52] LABS: CALCIUM 7.8 mg/dL (8.5-10.1); CREATININE 0.7 mg/dL (0.7-1.3); GFR 112.5; POTASSIUM 3.8 mmol/L (3.5-5.1)
[2017-09-14] MEDS: PREGABALIN 75 MG CAPSULE PO SCH ×2 (07:59→20:49)
[2017-09-14] MEDS: METOPROLOL TART IMMED RELEASE 50 MG TABLET PO SCH ×2 (07:59→20:49)
[2017-09-14] MEDS: predniSONE 5 MG TABLET PO SCH (07:59)
[2017-09-14] MEDS: APIXABAN 5 MG TABLET. PO SCH ×2 (08:00→20:49)
[2017-09-14] MEDS: LACTOBACILLUS RHAMNOSUS GG 1 CAPSULE. PO SCH ×2 (08:00→20:50)
[2017-09-14] MEDS: CEPHALEXIN 250 MG CAPSULE PO SCH ×4 (08:01→20:49)
[2017-09-14] MEDS: NON FORMULARY ITEM (Canagliflozin (Invokana) 300 MG) PO SCH (09:00)
--- NOTE | 2017-09-14 13:33 | PDOC ---
GIANLUCA ALTAMIRANO DIRECTIONAL DRILLER 09/14/17 1333: PROGRESS NOTES Diagnosis Problem Problems Medical Problems: (1) Atrial fibrillation with RVR Status: Acute (2) Dyspnea Status: Acute Assessment Problems Atrial fibrillation/flutter, paroxysmal. History of ablation. Possible triggered by the 8oz of Alcohol he had prior to bedtime on Wednesday. His rates and blood pressure are better controlled with the Metoprolol 50 BID. Started on oral anticoagulation with Eliquis 5 mg 2 times a day. If Rates are controlled with his physical therapy this afternoon he can discharge home. We will have him return to the hospital for a cardioversion in approximately 6 weeks after therapy with oral anticoagulation. If we cannot get his heart rates under control, we may need to consider transfer to [facility] for a transesophageal echocardiogram and cardioversion. Coronary artery disease., Asymptomatic. Continue current medical therapy Ischemic cardiomyopathy. He has a prior history of ischemic cardiomyopathy that improved following his coronary intervention and atrial fibrillation ablation. echocardiogram pending Essential hypertension, improved today. Continue current therapy Hypercholesterolemia, pure. Continue statin medication. Problems: Subjective He is sitting up in bed with his at bedside and reports feeling better. When he got up for breakfast this morning his heart rate did get into the 150s but seem to come down once he had his metoprolol on board. He slept well last night has not had any chest pain or shortness of breath. The symptoms of palpitations have improved. Objective Vital Signs Date Time Temp Pulse Resp B/P (MAP) Pulse Ox O2 Delivery O2 Flow Rate FiO2 09/14/17 12:45 98.4 74 20 120/82 (95) 98 Room Air Intake and Output 09/14/17 07:00 Intake Total 3880 ml Balance 3880 ml Intake Oral 1880 ml IV Total 2000 ml # Voids 7 Abdomen: Normal bowel sounds, Soft, No tenderness Heart: Regular rate, Other (Irregular rhythm with systolic murmur) Extremities: No edema, Normal pulses General: Alert, Oriented X3, Cooperative HEENT: EOMI, Mucous membr. moist/pink Lungs: Clear to auscultation Psych/Mental Status: Mental status NL, Mood NL Review of Relevant I have reviewed the following items asim (where applicable) has been applied. Labs Laboratory Tests Test 09/12/17 16:40 09/12/17 17:13 09/12/17 18:45 09/12/17 19:30 Troponin I Quantitative < 0.017 ng/mL (0-0.055) < 0.017 ng/mL (0-0.055) Glucose (Fingerstick) 138 mg/dL (70-99) Nasal Screen MRSA (PCR) Negative (Negative) Test 09/12/17 21:16 09/12/17 23:45 09/13/17 09:10 09/13/17 20:58 Glucose (Fingerstick) 113 mg/dL (70-99) 102 mg/dL (70-99) 152 mg/dL (70-99) Urine Collection Type Unknown Urine Color Yellow Urine Clarity Clear Urine pH 7.0 Urine Specific Hankinson 1.020 Urine Protein Neg (NEG-TRACE) Urine Glucose (UA) 500 mg/dL (NEG) Urine Ketones (Stick) Neg mg/dL (NEG) Urine Blood Neg (NEG) Urine Nitrite Neg (NEG) Urine Bilirubin Neg (NEG) Urine Urobilinogen Dipstick 0.2 mg/dL (0.2 mg/dL) Urine Leukocyte Esterase Neg (NEG) Urine RBC 0 /HPF (0-2) Urine WBC Occ /HPF (0-4) Urine Squamous Epithelial Cells Occ /LPF Urine Bacteria 0 /HPF (0-FEW) White Blood Count 8.2 x10^3/uL (4.0-11.0) Red Blood Count 4.45 x10^6/uL (4.30-5.70) Hemoglobin 14.9 g/dL (13.0-17.5) Hematocrit 43.4 % (39.0-53.0) Mean Corpuscular Volume 98 fL (79-100) Mean Corpuscular Hemoglobin 33 pg (25-35) Mean Corpuscular Hemoglobin Concent 34 g/dL (31-37) Red Cell Distribution Width 13.8 % (11.5-14.5) Platelet Count 157 x10^3/uL (140-400) Neutrophils (%) (Auto) 76 % (31-73) Lymphocytes (%) (Auto) 14 % (24-48) Monocytes (%) (Auto) 8 % (0-9) Eosinophils (%) (Auto) 1 % (0-3) Basophils (%) (Auto) 1 % (0-3) Neutrophils # (Auto) 6.2 x10^3uL (1.8-7.7) Lymphocytes # (Auto) 1.2 x10^3/uL (1.0-4.8) Monocytes # (Auto) 0.7 x10^3/uL (0.0-1.1) Eosinophils # (Auto) 0.1 x10^3/uL (0.0-0.7) Basophils # (Auto) 0.1 x10^3/uL (0.0-0.2) Sodium Level 139 mmol/L (136-145) Potassium Level 4.3 mmol/L (3.5-5.1) Chloride Level 106 mmol/L (98-107) Carbon Dioxide Level 29 mmol/L (21-32) Anion Gap 4 (6-14) Blood Urea Nitrogen 16 mg/dL (8-26) Creatinine 0.7 mg/dL (0.7-1.3) Estimated GFR (Cockcroft-Gault) 112.5 BUN/Creatinine Ratio 23 (6-20) Glucose Level 121 mg/dL (70-99) Calcium Level 8.0 mg/dL (8.5-10.1) Magnesium Level 1.8 mg/dL (1.8-2.4) Total Bilirubin 0.5 mg/dL (0.2-1.0) Aspartate Amino Transf (AST/SGOT) 12 U/L (15-37) Alanine Aminotransferase (ALT/SGPT) 22 U/L (16-63) Alkaline Phosphatase 53 U/L (46-116) Total Protein 5.7 g/dL (6.4-8.2) Albumin 2.8 g/dL (3.4-5.0) Albumin/Globulin Ratio 1.0 (1.0-1.7) Test 09/14/17 05:35 White Blood Count 7.4 x10^3/uL (4.0-11.0) Red Blood Count 4.37 x10^6/uL (4.30-5.70) Hemoglobin 14.7 g/dL (13.0-17.5) Hematocrit 42.0 % (39.0-53.0) Mean Corpuscular Volume 96 fL (79-100) Mean Corpuscular Hemoglobin 34 pg (25-35) Mean Corpuscular Hemoglobin Concent 35 g/dL (31-37) Red Cell Distribution Width 14.0 % (11.5-14.5) Platelet Count 143 x10^3/uL (140-400) Sodium Level 140 mmol/L (136-145) Potassium Level 3.8 mmol/L (3.5-5.1) Chloride Level 108 mmol/L (98-107) Carbon Dioxide Level 27 mmol/L (21-32) Anion Gap 5 (6-14) Blood Urea Nitrogen 15 mg/dL (8-26) Creatinine 0.7 mg/dL (0.7-1.3) Estimated GFR (Cockcroft-Gault) 112.5 Glucose Level 124 mg/dL (70-99) Calcium Level 7.8 mg/dL (8.5-10.1) Medications Current Medications Aspirin (Emy Aspirin) 325 mg 1X ONCE PO Last administered on 09/12/17at 12:55 ; Start 09/12/17 at 12:30; Stop 09/12/17 at 13:01; Status DC Sodium Chloride 1,000 ml @ 1,000 mls/hr Q1H IV Last administered on 09/12/17at 12:54; Start 09/12/17 at 12:29; Stop 09/12/17 at 13:28; Status DC Sodium Chloride (Normal Saline Flush) 10 ml QSHIFT PRN IV AFTER MEDS AND BLOOD DRAWS; Start 09/12/17 at 12:30 Aspirin (Children'S Aspirin) 81 mg STK-MED ONCE .ROUTE ; Start 09/12/17 at 12:47 ; Stop 09/12/17 at 12:48; Status DC Verapamil HCl (Verapamil HCl) 10 mg 1X ONCE IV Last administered on 09/12/17at 13:03; Start 09/12/17 at 13:15; Stop 09/12/17 at 13:16; Status DC Verapamil HCl (Verapamil HCl) 5 mg STK-MED ONCE IV ; Start 09/12/17 at 13:01; Stop 09/12/17 at 13:04; Status DC Ondansetron HCl (Zofran) 4 mg PRN Q4HRS PRN IV NAUSEA/VOMITING; Start 09/12/17 at 13:45; Stop 09/13/17 at 13:44; Status DC Morphine Sulfate (Morphine 4mg Syringe) 4 mg PRN Q2HR PRN IV PAIN Last administered on 09/13/17at 13:50; Start 09/12/17 at 13:45; Stop 09/13/17 at 13:44 ; Status DC Sodium Chloride 1,000 ml @ 100 mls/hr Q10H IV Last administered on 09/13/17at 17:31; Start 09/12/17 at 13:38; Stop 09/13/17 at 13:37; Status DC Acetaminophen (Tylenol) 650 mg PRN Q4HRS PRN PO FEVER; Start 09/12/17 at 13:45 ; Stop 09/13/17 at 13:44; Status DC Verapamil HCl (Verapamil HCl) 5 mg 1X ONCE IV ; Start 09/12/17 at 16:30; Stop 09/12/17 at 16:55; Status DC Digoxin (Lanoxin) 250 mcg 1X ONCE IV Last administered on 09/12/17at 17:03; Start 09/12/17 at 17:00; Stop 09/12/17 at 17:01; Status DC Enoxaparin Sodium (Lovenox 100mg Syringe) 100 mg Q12H SQ Last administered on at 06:35; Start 09/12/17 at 17:00; Stop 09/13/17 at 13:36; Status DC Aspirin (Professionali.ru Aspirin) 325 mg 1X ONCE PO ; Start 09/12/17 at 16:30; Stop 09/12 at 16:53; Status DC Aspirin (Professionali.ru Aspirin) 325 mg DAILYWBKFT PO Last administered on 09/13/17at 08: 00; Start 09/13/17 at 08:00; Stop 09/13/17 at 19:02; Status DC Carvedilol (Coreg) 6.25 mg BIDWMEALS PO Last administered on 09/13/17at 08:00; Start 09/12/17 at 17:00; Stop 09/13/17 at 13:18; Status DC Oxycodone/ Acetaminophen (Percocet 10/325) 1 tab QID PO ; Start 09/12/17 at 17: 00; Stop 09/12/17 at 17:43; Status DC Prednisone (Prednisone) 10 mg DAILY PO Last administered on 09/14/17at 07:59; Start 09/13/17 at 09:00 Simvastatin (Zocor) 20 mg HS PO Last administered on 09/13/17at 21:04; Start 05/22 at 21:00 Non-Formulary Medication (Canagliflozin (Invokana)) 300 mg DAILY PO Last administered on 09/14/17at 09:00; Start 09/13/17 at 09:00; Status UNV Non-Formulary Medication (Potassium Gluconate ) 90 mg DAILY PO ; Start 09/13/17 at 09:00; Stop 09/13/17 at 09:00; Status DC Acetaminophen (Tylenol) 1,000 mg Q8HRS PRN PO MODERATE PAIN; Start 09/12/17 at 16:30 Acetaminophen/ Hydrocodone Bitart (Lortab 10/325) 1 tab PRN Q4HRS PRN PO PAIN Last administered on 09/12/17at 17:59; Start 09/12/17 at 17:30 Zolpidem Tartrate (Ambien) 5 mg PRN QHS PRN PO INSOMNIA; Start 09/12/17 at 17: 30 Morphine Sulfate (Morphine 2mg Syringe) 2 mg PRN Q2HR PRN IV PAIN; Start at 17:30 Digoxin (Lanoxin) 250 mcg 1X ONCE IV Last administered on 09/12/17at 19:49; Start 09/12/17 at 19:45; Stop 09/12/17 at 19:46; Status DC Lorazepam (Ativan) 1 mg 1X ONCE PO Last administered on 09/12/17at 23:16; Start 09/12/17 at 23:00; Stop 09/12/17 at 23:07; Status DC Metoprolol Tartrate (Lopressor) 50 mg BID PO Last administered on 09/14/17at 07: 59; Start 09/13/17 at 21:00 Metoprolol Tartrate (Lopressor) 50 mg 1X ONCE PO Last administered on at 13:49; Start 09/13/17 at 13:30; Stop 09/13/17 at 13:31; Status DC Apixaban (Eliquis) 5 mg BID PO Last administered on 09/14/17at 08:00; Start 06/21 at 21:00 Morphine Sulfate (Morphine 4mg Syringe) 4 mg PRN Q2HR PRN IV PAIN Last administered on 09/13/17at 22:53; Start 09/13/17 at 14:00 Iohexol (Omnipaque 300 Mg/ml) 75 ml 1X ONCE IV Last administered on 09/13/17at 14:23; Start 09/13/17 at 14:15; Stop 09/13/17 at 14:16; Status DC Calcium Carbonate/ Glycine (Tums) 500 mg STK-MED ONCE .ROUTE ; Start 09/13/17 at 14:13; Stop 09/13/17 at 14:14; Status DC Calcium Carbonate/ Glycine (Tums) 500 mg PRN AFTMEALHC PRN PO INDIGESTION; Start 09/13/17 at 14:15 Ondansetron HCl (Zofran) 4 mg STK-MED ONCE .ROUTE ; Start 09/13/17 at 16:39; Stop 09/13/17 at 16:40; Status DC Ondansetron HCl (Zofran) 4 mg PRN Q6HRS PRN IV NAUSEA/VOMITING; Start 09/13/17 at 17:15 Cephalexin HCl (Keflex) 500 mg QID PO Last administered on 09/14/17at 08:01; Start 09/13/17 at 21:00 Lactobacillus Rhamnosus (Culturelle) 1 cap BID PO Last administered on at 08:00; Start 09/13/17 at 21:00 Pregabalin (Lyrica) 75 mg BID PO Last administered on 09/14/17at 07:59; Start at 21:00 Active Scripts Active Reported Potassium Gluconate 90 Mg Tablet 90 Mg PO DAILY LAST DOSE GIVEN: DATE: TIME: NEXT DOSE DUE: DATE: TIME: Percocet 10-325 Mg Tablet (Oxycodone Hcl/Acetaminophen) 1 Each Tablet 1 Tab PO QID LAST DOSE GIVEN: DATE: TIME: NEXT DOSE DUE: DATE: TIME: Invokana (Canagliflozin) 300 Mg Tablet 300 Mg PO DAILY LAST DOSE GIVEN: DATE: TIME: NEXT DOSE DUE: DATE: TIME: Ibuprofen 800 Mg Tablet 1 Tab PO TID PRN LAST DOSE GIVEN: DATE: TIME: NEXT DOSE DUE: DATE: TIME: Aspirin 81 Mg Tab.chew 81 Mg PO DAILY LAST DOSE GIVEN: DATE: TIME: NEXT DOSE DUE: DATE: TIME: Prednisone 5 Mg Tablet 10 Mg PO DAILY 10 MG DOSE ON 09-12-17 IS LAST DOSE Carvedilol 6.25 Mg Tablet 6.25 Mg PO BIDWMEALS LAST DOSE GIVEN: DATE: TIME: NEXT DOSE DUE: DATE: TIME: Lisinopril 2.5 Mg Tablet 2.5 Mg PO DAILY LAST DOSE GIVEN: DATE: TIME: NEXT DOSE DUE: DATE: TIME: Simvastatin 20 Mg Tablet 20 Mg PO HS LAST DOSE GIVEN: DATE: TIME: NEXT DOSE DUE: DATE: TIME: Vitals/I & O Vital Sign - Last 24 Hours 09/13/17 09/13/17 09/13/17 09/13/17 13:49 13:50 14:00 14:20 Temp 98.4 Pulse 160 92 Resp 18 B/P (MAP) 113/71 (85) Pulse Ox 96 O2 Delivery Room Air Room Air Room Air 09/13/17 09/13/17 09/13/17 09/13/17 16:00 16:00 17:02 17:04 Pulse 106 99 Resp 22 20 B/P (MAP) 86/47 (60) 116/67 (83) Pulse Ox 96 96 O2 Delivery Room Air Room Air Room Air Room Air 09/13/17 09/13/17 09/13/17 09/13/17 18:12 19:00 20:00 20:00 Temp 98.2 Pulse 86 98 86 Resp 20 18 20 B/P (MAP) 114/66 (82) 116/71 (86) 116/67 (83) Pulse Ox 96 98 97 O2 Delivery Room Air Room Air Room Air Room Air 09/13/17 09/13/17 09/13/17 09/13/17 21:05 21:21 22:00 22:53 Pulse 86 109 102 Resp 18 18 18 B/P (MAP) 116/67 121/64 (83) 133/69 (90) Pulse Ox 97 97 97 O2 Delivery Room Air Room Air Room Air 09/13/17 09/13/17 09/14/17 09/14/17 23:00 23:23 00:00 00:01 Pulse 92 102 Resp 18 16 18 B/P (MAP) 116/71 (86) 113/65 (81) Pulse Ox 98 98 96 O2 Delivery Room Air Room Air Room Air Room Air 09/14/17 09/14/17 09/14/17 09/14/17 02:00 03:00 04:00 04:00 Pulse 116 86 78 Resp 18 16 16 B/P (MAP) 112/66 (81) 117/75 (89) 114/73 (87) Pulse Ox 95 96 93 O2 Delivery Room Air Room Air Room Air Room Air 09/14/17 09/14/17 09/14/17 09/14/17 05:00 06:00 07:59 08:00 Pulse 100 104 90 Resp 18 16 B/P (MAP) 110/49 (69) 120/63 (82) Pulse Ox 95 97 O2 Delivery Room Air Room Air Room Air 09/14/17 09/14/17 09/14/17 09/14/17 08:49 10:10 11:00 11:14 Pulse 87 120 74 Resp 22 22 20 B/P (MAP) 103/56 (72) 119/69 (86) 107/72 (84) Pulse Ox 98 98 98 O2 Delivery Room Air Room Air Room Air 09/14/17 12:45 Temp 98.4 Pulse 74 Resp 20 B/P (MAP) 120/82 (95) Pulse Ox 98 O2 Delivery Room Air Intake and Output 09/13/17 09/13/17 09/14/17 15:00 23:00 07:00 Intake Total 2020 ml 1860 ml Balance 2020 ml 1860 ml MISSY BYRNES Jr, MD 09/15/17 0619: PROGRESS NOTES Assessment The patient was seen by Gianluca Altamirano APRN and I have reviewed her findings and plan and agree with above. Due to staffing constraints, we did not have an attending available on this day to see the patient. Missy Byrnes Jr., MD Problems: GIANLUCA ALTAMIRANO APRN Sep 14, 2017 13:33 MISSY BYRNES Jr, MD Sep 15, 2017 06:19
[2017-09-14] MEDS: MORPHINE SULFATE 4 MG/ML DISP.SYRIN. IV PRN ×3 (17:13→23:38)
[2017-09-14] MEDS ORDERED: DIGOXIN IV 500 MCG/2 ML AMPUL. IV ONE (18:30)
[2017-09-14] MEDS: SIMVASTATIN 20 MG TABLET PO SCH (20:50)
--- NOTE | 2017-09-14 21:23 | PN ---
DATE: 09/14/2017 SUBJECTIVE: The patient is resting, slightly propped up in bed, sleepy, but arousable. He denied any complaint. He was started yesterday by Dr. Mina on Lyrica 75 mg twice a day. We did arrange for him to have a CT scan of the head and facial bones, which basically showed there is no midline shift or mass effect in the brain, ventricles and sulci are normal for patient's age. No abnormal intracranial enhancement is identified. Joaquin and white matter differentiation is present, is preserved. No extraaxial fluid collection. The globes and orbits are intact. The mastoid air cells are aerated. Paranasal sinuses are clear. No acute calvarial fracture. The subcutaneous fat anterior and inferior to the left external auditory canal. There is a rim enhancing hypodense collection measuring up to 2 cm ____ 1.1 cm transversely, by 3.8 cm craniocaudal fluid collection is well seen with the coronal images. The T1 axial images, the left parotid gland is surgically absent. There are a couple of surgical clips. No cervical adenopathy seen. Minimal grade 1 anterolisthesis of C2 and C3. Impression is that there is a small subcutaneous abscess anterior inferior to the left external auditory canal and left parotid gland is surgically abdomen. I did start him on Keflex, although he obviously would require surgical drainage. I spoke with Dr. Dill who will basically reviewed the CT scan, will come and see him personally this afternoon. OBJECTIVE: GENERAL: On examining him this morning, he was resting slightly propped up in bed, no apparent distress, pale. No jaundice, no cyanosis, no thyromegaly. No jugular venous distension. No limb edema. VITAL SIGNS: Her heart rate was 87, blood pressure was 119/69, temperature was 98.2, respiratory rate was 16, and oxygen saturation was 98% on room air. The rest of clinical exam is stable. His intake over the last 24 hours was 1540, no output was recorded. His white cell count this morning was 7400, hemoglobin 15, hematocrit 42, MCV 96, and platelet count of 103,000. His serum sodium was 140, potassium 3.8, chloride 108, bicarbonate 27, anion gap of 5, BUN 15, creatinine 0.7. Estimated GFR was 112 mL per minute. His glucose was 124 and calcium was 7.8. His nasal screen for MRSA by PCR was negative. ASSESSMENT: 1. Paroxysmal atrial fibrillation with rapid ventricular response, currently on metoprolol tartrate 50 mg twice a day. He was also started on apixaban 5 mg twice a day. 2. Left-sided facial pain, probably due to involvement of the left facial nerve by the surgery and radiation treatment for which he is now on pregabalin 75 mg twice a day. 3. 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 He underwent a left parotidectomy and left modified neck dissection in 06/2016. Apparently, he declined to have adjuvant radiation at that time. He developed a PET/CT evidence of recurrence in parotid bed and lymph nodes and has received 75.25 Gy radiation to the involved sites of disease completed on 01/14/2017. He apparently was seen on 12/18/____, and at that time, there was minimal limb edema. No palpable adenopathy in the parotid bed or neck region. His left neck revealed stigmata of previous parotidectomy and normal overlying skin with minimal induration, the surgical radiation treatment. Other medical problems include type 2 diabetes mellitus. He apparently is also known to have coronary artery disease, status post PCI with the stent deployment, ischemic cardiomyopathy. He underwent also ablation at [facility], according to Dr. Dill. TOM BARAHONA MD DR: DARYL/gricel JOB#: [id number] / [id number]
--- NOTE | 2017-09-14 23:45 | PN ---
DATE: 09/14/2017 SUBJECTIVE: The patient stated his headache has been better in the last 24 hours. He is happy with Lyrica; however, he continues to have pus drainage from the abscess behind the left ear. The culture of this abscess was done yesterday and waiting for the results. He denies headaches, visual disturbances, nausea, vomiting, chest pain, shortness of breath, palpitation. OBJECTIVE: GENERAL: Well-developed, well-nourished white male, not in acute distress. VITAL SIGNS: Blood pressure 122/70, respiratory rate 18, pulse is 80 and regular, oxygen saturation 98% on room air. HEENT: Normocephalic, atraumatic. There is a purulent drainage coming from the abscess behind the left ear, otherwise, unremarkable. NECK: Supple. Negative for carotid bruit, lymphadenopathy or thyromegaly. LUNGS: Clear to A and P. CARDIOVASCULAR: Regular rhythm, normal S1, S2. ABDOMEN: Soft. Bowel sounds positive. EXTREMITIES: Negative for cyanosis, clubbing or pitting edema. NEUROLOGIC: Normal mental status. Cranial nerves consistent with left Quan's palsy. Otherwise, unremarkable. Motor Examination: No focal muscle bulk was seen. The tone is normal. The strength is 5/5 throughout. Sensory examination revealed normal pinprick, light touch, vibratory and position senses. Deep tendon reflexes were symmetric and active without pathologic responses. Gait: The stance is steady. LABORATORY DATA: CBC revealed white blood cells of 7.4 thousand, hemoglobin 14.7, hematocrit 42, platelet count of 143,000. Chemistry revealed sodium of 140, potassium 3.8, chloride 108, CO2 of 27, BUN 15, creatinine 0.7, glucose 124, calcium is 7.8. IMPRESSION: 1. Left facial neuropathic pain, probably represent trigeminal pain. 2. Left facial palsy. 3. Multiple medical problems include hypertension, atrial fibrillation, hyperlipidemia, diabetes mellitus, abscess with purulent drainage below the left ear. RECOMMENDATIONS: Continue with current medications and management. Await for abscess culture results. M Dilma SOLORIO MD DR: DANIEL/gricel JOB#: [id number] / [id number]
[2017-09-15] VITALS (8 sets, daily range): BP systolic 101–143; BP diastolic 54–83
[2017-09-15] MEDS ORDERED: DIGOXIN IV 500 MCG/2 ML AMPUL. IV ONE (00:15)
[2017-09-15] MEDS: HYDROcodone/APAP 10/325 1 TAB TABLET PO PRN (07:51)
[2017-09-15] MEDS: PREGABALIN 75 MG CAPSULE PO SCH (09:00)
[2017-09-15] MEDS ORDERED: DIGOXIN 125 MCG TABLET PO SCH (09:00)
[2017-09-15] MEDS: NON FORMULARY ITEM (Canagliflozin (Invokana) 300 MG) PO SCH (09:00)
[2017-09-15] MEDS: predniSONE 5 MG TABLET PO SCH (09:01)
[2017-09-15] MEDS: CEPHALEXIN 250 MG CAPSULE PO SCH ×2 (09:01→13:27)
[2017-09-15] MEDS: LACTOBACILLUS RHAMNOSUS GG 1 CAPSULE. PO SCH (09:01)
[2017-09-15] MEDS: APIXABAN 5 MG TABLET. PO SCH (09:02)
[2017-09-15] MEDS: METOPROLOL TART IMMED RELEASE 50 MG TABLET PO SCH (09:02)
--- NOTE | 2017-09-15 09:20 | CARD ---
MR#: [id number] Date of Study: 09/13/2017 Ordering Physician: MISSY ARREGUIN, Referring Physician: JEFF JOYCE, Tech: Grace Bland [facility] APPROVED REPORT EXAM: Two-dimensional and M-mode echocardiogram with Doppler and color Doppler. Other Information Quality : Average INDICATION Atrial Fibrillation Chest Pain 2D DIMENSIONS Left Atrium(2D)4.5 (1.6-4.0cm)IVSd1.2 (0.7-1.1cm) Aortic Root(2D)3.0 (2.0-3.7cm)LVDd4.4 (3.9-5.9cm) LVOT Diameter2.2 (1.8-2.4cm)PWd1.4 (0.7-1.1cm) LVDs3.1 (2.5-4.0cm)FS (%) 30.4 % SV50.3 mlLVEF(%)58.0 (>50%) Aortic Valve LVOT Peak Chuck.70.5cm/s Tricuspid Valve TR P. [id number]/sRAP [id number] TR Peak Gr.[id number] LEFT VENTRICLE The left ventricle is normal size. There is mild concentric left ventricular hypertrophy. The left ve ntricular systolic function is normal and the ejection fraction is within normal range. The Ejection Fraction is 55-60%. There is normal LV segmental wall motion. RIGHT VENTRICLE The right ventricle is normal size. There is normal right ventricular wall thickness. The right ventr icular systolic function is normal. ATRIA The left atrium is mildly dilated. The right atrium is mildly dilated. The interatrial septum is inta ct with no evidence for an atrial septal defect or patent foramen ovale as noted on 2-D or Doppler im aging. AORTIC VALVE The aortic valve is trileaflet. The aortic valve is mildly sclerotic. Doppler and Color Flow revealed mild to moderate aortic regurgitation. There is no significant aortic valvular stenosis. MITRAL VALVE There is no evidence of mitral valve prolapse. There is no mitral valve stenosis. Doppler and Color-f low revealed mild to moderate mitral regurgitation. TRICUSPID VALVE Doppler and Color Flow revealed mild to moderate tricuspid regurgitation. The PASP is 45mmHg. There i s no tricuspid valve stenosis. PULMONIC VALVE The pulmonic valve is not well visualized. Doppler and Color Flow revealed trace pulmonic valvular re gurgitation. There is no pulmonic valvular stenosis. GREAT VESSELS The aortic root is normal in size. The IVC is normal in size and but only partially collapses with in spiration. PERICARDIAL EFFUSION There is no pleural effusion. There is no evidence of significant pericardial effusion. Critical Notification Critical Value: No <Conclusion> There is mild concentric left ventricular hypertrophy. The left ventricular systolic function is normal and the ejection fraction is within normal range. The Ejection Fraction is 55-60%. Doppler and Color Flow revealed mild to moderate aortic regurgitation. Doppler and Color Flow revealed mild to moderate mitral regurgitation. Doppler and Color Flow revealed mild to moderate tricuspid regurgitation. The PASP is 45mmHg. There is no evidence of significant pericardial effusion. Signed by : Brayan Mina, Electronically Approved : 09/15/2017 09:19:43
--- NOTE | 2017-09-15 09:42 | PDOC ---
SUBJECTIVE Subjective: Mr. Locke is doing reasonably well this morning. He denies any chest pain or shortness of breath. He has not had any significant palpitations. He denies any lightheadedness or syncope. Exam Constitutional: Denies fever or chills Eyes: Denies change in visual acuity HENT: Denies nasal congestion or sore throat Respiratory: Denies cough or shortness of breath Cardiovascular: Denies chest pain or edema GI: Denies abdominal pain, nausea, vomiting, bloody stools or diarrhea : Denies dysuria Musculoskeletal: Denies back pain or joint pain Integument: Denies rash Neurologic: Denies headache, focal weakness or sensory changes Endocrine: Denies polyuria or polydipsia Lymphatic: Denies swollen glands Psychiatric: Denies depression or anxiety OBJECTIVE Vital Signs Vital Signs Date Time Temp Pulse Resp B/P (MAP) Pulse Ox O2 Delivery O2 Flow Rate FiO2 09/15/17 09:02 89 119/78 09/15/17 08:51 98 Room Air 09/15/17 07:51 16 09/14/17 20:00 98.1 Physical Exam Constitutional: Well developed, well nourished, no acute distress, non-toxic appearance. HENT: Normocephalic, atraumatic, bilateral external ears normal, oropharynx moist, no oral exudates, nose normal. Eyes: ERMIAS, EOMI, conjunctiva normal, no discharge. Neck: Normal range of motion, no tenderness, supple, no stridor. Cardiovascular: JVP not elevated. No carotid bruit. Nor precordial pulsations or heaves. Irregularly irregular, variable S1, 2/6 systolic murmur, no rubs or gallops. Thorax and Lungs: NOrmal respiration. Normal chest expansion. Normal to percuss. Equal breath sounds. No crackles. No wheeze. Abdomen: Bowel sounds normal, soft, no tenderness, no masses, no pulsatile masses. Skin: Warm, dry, no erythema, no rash. Back: No tenderness, no CVA tenderness. Extremities: Intact distal pulses, no tenderness, no cyanosis, no clubbing, ROM intact, no edema. Neurologic: Alert and oriented X 3, normal motor function, normal sensory function, facial droop. Psychologic: Affect normal, judgement normal, mood normal. Lab Laboratory Tests Test 09/14/17 20:56 Glucose (Fingerstick) 120 mg/dL (70-99) H MEDICATIONS Medications Current Medications Medications (Trade) Dose Ordered Sig/Joaquin Start Time Stop Time Status Last Admin Dose Admin Acetaminophen (Tylenol) 1,000 mg Q8HRS PRN 09/12/17 16:30 Acetaminophen/ Hydrocodone Bitart (Lortab 10/325) 1 tab PRN Q4HRS PRN 09/12/17 17:30 09/15/17 07:51 1 TAB Apixaban (Eliquis) 5 mg BID 09/13/17 21:00 09/15/17 09:02 5 MG Aspirin (Emy Aspirin) 325 mg DAILYWBKFT 09/13/17 08:00 09/13/17 19:02 DC 09/13/17 08:00 325 MG Aspirin (Children'S Aspirin) 81 mg STK-MED ONCE 09/12/17 12:47 09/12/17 12:48 DC Calcium Carbonate/ Glycine (Tums) 500 mg PRN AFTMEALHC PRN 09/13/17 14:15 Carvedilol (Coreg) 6.25 mg BIDWMEALS 09/12/17 17:00 09/13/17 13:18 DC 09/13/17 08:00 6.25 MG Cephalexin HCl (Keflex) 500 mg QID 09/13/17 21:00 09/15/17 09:01 500 MG Digoxin (Lanoxin) 125 mcg DAILY 09/15/17 09:00 09/15/17 09:01 125 MCG Enoxaparin Sodium (Lovenox 100mg Syringe) 100 mg Q12H 09/12/17 17:00 09/13/17 13:36 DC 09/13/17 06:35 100 MG Iohexol (Omnipaque 300 Mg/ml) 75 ml 1X ONCE 09/13/17 14:15 09/13/17 14:16 DC 09/13/17 14:23 75 ML Lactobacillus Rhamnosus (Culturelle) 1 cap BID 09/13/17 21:00 09/15/17 09:01 1 CAP Lorazepam (Ativan) 1 mg 1X ONCE 09/12/17 23:00 09/12/17 23:07 DC 09/12/17 23:16 1 MG Metoprolol Tartrate (Lopressor) 50 mg 1X ONCE 3/12/18 13:30 09/13/17 13:31 DC 09/13/17 13:49 50 MG Morphine Sulfate (Morphine 2mg Syringe) 2 mg PRN Q2HR PRN 09/12/17 17:30 Morphine Sulfate (Morphine 4mg Syringe) 4 mg PRN Q2HR PRN 09/13/17 14:00 09/14/17 23:38 4 MG Non-Formulary Medication (Canagliflozin (Invokana)) 300 mg DAILY 09/13/17 09:00 UNV 09/14/17 09:00 300 MG Non-Formulary Medication (Potassium Gluconate ) 90 mg DAILY 09/13/17 09:00 09/13/17 09:00 DC Ondansetron HCl (Zofran) 4 mg PRN Q6HRS PRN 09/13/17 17:15 Oxycodone/ Acetaminophen (Percocet 10/325) 1 tab QID 09/12/17 17:00 09/12/17 17:43 DC Prednisone (Prednisone) 10 mg DAILY 09/13/17 09:00 09/15/17 09:01 10 MG Pregabalin (Lyrica) 75 mg BID 09/13/17 21:00 09/15/17 09:00 75 MG Simvastatin (Zocor) 20 mg HS 09/12/17 21:00 09/14/17 20:50 20 MG Sodium Chloride 1,000 ml @ 100 mls/hr Q10H 09/12/17 13:38 09/13/17 13:37 DC 09/13/17 17:31 100 MLS/HR Sodium Chloride (Normal Saline Flush) 10 ml QSHIFT PRN 09/12/17 12:30 Verapamil HCl (Verapamil HCl) 5 mg 1X ONCE 09/12/17 16:30 09/12/17 16:55 DC Zolpidem Tartrate (Ambien) 5 mg PRN QHS PRN 09/12/17 17:30 09/14/17 20:50 5 MG PLAN Plan 1. Paroxysmal atrial fibrillation, currently rate controlled and on chronic anticoagulation with Eliquis 2. History of CAD s/p PCI to LCX and RCA with BMS, stable 3. History of ischemic cardiomyopathy with subsequent normalization of LV function 4. Mitral and aortic valve regurgitation, stable 5. Essential hypertension 6. Mixed hyperlipidemia Mr. Locke is doing relatively well this morning. He has remained hemodynamically stable. The patient denies any anginal symptoms, and has not had any significant palpitations. On examination, he does appear mostly euvolemic. I reviewed his telemetry this morning which demonstrates persistent atrial fibrillation with well-controlled ventricular rates on his current regimen of metoprolol. Echocardiogram demonstrated normal LV systolic function with mild to moderate MR, TR, and AI. This appears to be stable compared to prior studies. The patient is tolerating chronic anticoagulation with Eliquis. I will plan on continuing the patient's current regimen as prescibed, and have him follow up with his primary jewelry polisher, Dr. Carlos Byrnes, in a few weeks. If he remains in atrial fibrillation, the patient would be a good candidate for DCCV in 6 weeks. If he has recurrent bouts of atrial fibrillation, he may be a good candidate for an antiarrhythmic in the future. I appreciate recommendations by our consultants. I agree with current plans of care. We will sign off. Please call with any further questions. KRYSTIN SOLORIO MD Sep 15, 2017 09:42
--- NOTE | 2017-09-15 13:45 | PN ---
DATE: 09/15/2017 SUBJECTIVE: The patient denies any new medical neurological complaints. He continues to have mild drainage of the abscess behind the left ear. He denies headaches. His left facial pain has been improved on Lyrica. OBJECTIVE: GENERAL: Well-developed, well-nourished white male, not in acute distress. VITAL SIGNS: Blood pressure 119/78, respiratory rate 16, pulse is 89 and irregular, oxygen saturation 98% on room air. HEENT: Normocephalic, atraumatic, abscess in the anterior and lower left ear with purulent discharge. NECK: Supple. Negative for carotid bruit, lymphadenopathy, or thyromegaly. LUNGS: Clear to A and P. CARDIOVASCULAR: Irregularly irregular rhythm, normal S1-S2. ABDOMEN: Soft. Bowel sounds positive. EXTREMITIES: Negative for cyanosis, clubbing, or edema. NEUROLOGIC: Normal mental status. Cranial nerves positive for Quan's palsy. Motor, no focal muscle bulk seen. The tone is normal. The strength is 5/5 throughout. Sensory examination reveals diminished pinprick and light touch senses over the left face in the V1, V2 distributions of the trigeminal nerve. Deep tendon reflexes are symmetric and active without pathologic responses. Gait and coordinations are normal. IMPRESSION: 1. Left facial pain - improved on Lyrica. 2. Abscess, anterior and below the left ear with mild purulent drainage. 3. Multiple medical problems include atrial fibrillations, hypertension, hyperlipidemia, diabetes mellitus. RECOMMENDATIONS: 1. Continue with current management initiated by Dr. Lawson and by Dr. Strauss. 2. Await for the abscess discharge culture and adjust the antibiotics accordingly. 3. Follow up in [facility] in 2 weeks. M Dilma SOLORIO MD DR: DANIEL/gricel JOB#: [id number] / [id number]
[2017-09-15] MEDS ORDERED: PREG75CA PO (14:19)
[2017-09-15] MEDS ORDERED: CEPH-264 PO (14:19)
[2017-09-15] MEDS ORDERED: APIX5TAB3 PO (14:19)
[2017-09-15] MEDS ORDERED: DIGO125T PO (14:19)
[2017-09-15] MEDS ORDERED: METO50TA6 PO (14:19)
--- NOTE | 2017-09-15 18:44 | DS ---
DATE OF DISCHARGE: 09/15/2017 HOSPITAL COURSE: The patient is a 67-year-old male patient who was admitted on 09/12/2017, with a complaint of not feeling well, has palpitation and shortness of breath. He was found to be in atrial fibrillation with rapid ventricular response, left-sided facial pain and he was basically started on metoprolol and digoxin and also started on apixaban. His heart rate is much better controlled. He was seen by Dr. Mina who added pregabalin 75 mg twice a day. We did a swab of the abscess in his left side of the face, it did grow gram-positive cocci in cluster, for which we started him on oral Keflex 500 mg 4 times a day. He was seen in consultation by the insurance marketing specialist who basically recommended that the patient can be discharged to continue on digoxin and metoprolol as well as apixaban with a plan to do an outpatient cardioversion. PHYSICAL EXAMINATION: GENERAL: When I saw him today, he looked well and was clearly in no apparent respiratory distress, pale. No jaundice, cyanosis, or thyromegaly. No jugular venous distention. No limb edema. VITAL SIGNS: His heart rate was 80, blood pressure was 119/78, temperature was 98, respiratory rate was 16, and oxygen saturation was 97% on room air. HEAD, EYES, EARS, NOSE AND THROAT: Normocephalic. Status post resection of the left parotid gland and left-sided neck dissection. NECK: Supple, with no lymphadenopathy, no thyromegaly, no jugular venous distension, no audible bruits. HEART: Showed normal first and second heart sounds with no gallop, rub or murmur. CHEST: Clear to auscultation. No crepitation or rhonchi. ABDOMEN: Distended, soft, nontender. No guarding or rigidity. No organomegaly. Hernial orifice intact. Bowel sounds normal. NEUROLOGIC: He was awake, alert, responding appropriately. All cranial nerves intact except he has left-sided facial weakness, probably the effect of surgery and radiation therapy before; however, he moves all extremities without difficulty. He ambulates without assistance or assistive devices. His intake over the last 24 hours was 1400, no output was recorded. LABORATORY DATA: Showed a white cell count 7400, hemoglobin 14.7, hematocrit 42, MCV 96, and platelet count of 143,000. His chemistry showed a serum sodium of 140, potassium 3.8, chloride 108, bicarbonate 27, anion gap of 5, BUN 15, creatinine 0.7, estimated GFR was 112 mL per minute, his glucose 124, calcium was 7.8. His triglycerides 110, total cholesterol of 44, LDL cholesterol 78, VLDL was 22, and HDL cholesterol of 44, ratio was 3. His TSH was 1.681. His D-dimer was 0.44. DISCHARGE MEDICATIONS: The patient was discharged home to continue on following medications: Apixaban 5 mg twice a day, cephalexin 500 mg 3 times a day, digoxin 125 mcg once a day, metoprolol tartrate 50 mg twice a day, pregabalin 75 mg twice a day, aspirin 81 mg once a day, Invokana 300 mg p.o. daily, lisinopril 2.5 mg once a day. He was discharged on hydrocodone 10/325 one tablet every 4 hours as needed, potassium gluconate once a day, prednisone 10 mg once a day, simvastatin 20 mg at bedtime. I discontinued his carvedilol that should not be on ibuprofen because he will bleed as he is now on apixaban. DISCHARGE INSTRUCTIONS: He should follow up with Dr. Dill or Dr. José to repeat his CT scan of the head and facial bones to make sure that the abscess has resolved and he has an appointment with the cardiology team for outpatient cardioversion in 6 weeks' time. 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 He has also an abscess, growing gram-positive cocci, for which he is on Keflex. TOM BARAHONA MD DR: DARYL/gricel JOB#: [id number] / [id number]
== END 2017-09-15 15:10 | disposition home or self-care (01) | DRG 309 ==
LOC: ER 12:26 → 1 SOUTH 13:48 → ICU 16:05
PROVIDERS: ADMIT Family Medicine; ATTEND Family Medicine
DX: I48.0 Paroxysmal atrial fibrillation (principal); I50.22 Chronic systolic (congestive) heart failure; I11.0 Hypertensive heart disease with heart failure; I95.9 Hypotension, unspecified; L02.01 Cutaneous abscess of face; C44.92 Squamous cell carcinoma of skin, unspecified; E11.9 Type 2 diabetes mellitus without complications; F10.988 Alcohol use, unspecified with other alcohol-induced disorder; E78.2 Mixed hyperlipidemia; G50.0 Trigeminal neuralgia; G51.0 Bell's palsy; I08.0 Rheumatic disorders of both mitral and aortic valves; G47.33 Obstructive sleep apnea (adult) (pediatric); E66.9 Obesity, unspecified; I25.5 Ischemic cardiomyopathy; E78.00 Pure hypercholesterolemia, unspecified; G89.29 Other chronic pain; I25.10 Atherosclerotic heart disease of native coronary artery without angina pectoris; I48.92 Unspecified atrial flutter; K21.9 Gastro-esophageal reflux disease without esophagitis; Z79.01 Long term (current) use of anticoagulants; Z92.3 Personal history of irradiation; Z79.82 Long term (current) use of aspirin; Z79.899 Other long term (current) drug therapy; Z68.33 Body mass index [BMI] 33.0-33.9, adult; Z85.818 Personal history of malignant neoplasm of other sites of lip, oral cavity, and pharynx; Z95.5 Presence of coronary angioplasty implant and graft
CPT/HCPCS: 36415; 70460; 70487; 71045; 80048; 80053; 80061; 80076; 81001; 82553; 82947; 83690; 83735; 83880; 84443; 84484; 85025; 85027; 85379; 87070; 87641; 93005; 93306; 96361; 96374; J1160; J1650; J2270; J7512; Q9967; 99285-25; J7030

== ENCOUNTER 2017-10-24 09:33 | Emergency (ER) | payer OTHER ==
[~2017-10-24] VITALS: Ht 177.8 cm; Wt 106.1 kg
[~2017-10-24 09:33] MED LIST: APIX5TAB3 PO; ASPI-630 PO; CANA300T PO; CARV6.252 PO; CEPH-264 PO; DIGO125T PO; IBUP800T19 PO; LISI2.5T PO; METO50TA6 PO; OXYC-328 PO; POTA90TA2 PO; PRED5TAB PO; PREG75CA PO; SIMV20TA3 PO
[2017-10-24 09:37] VITALS: BP 129/98
--- NOTE | 2017-10-24 09:58 | PHYS DOC ---
Past History Past Medical History: A-Fib, Arrhythmia, CVA, Diabetes, GERD, High Cholesterol , Hypertension Past Surgical History: No Surgical History Smoking: Non-smoker Alcohol Use: None Drug Use: None Adult General Chief Complaint Chief Complaint: HEAD INJURY/TRAUMA [facility] HPI 67-year-old male patient with multiple medical problems and frequent emergency room visits on Eliquis state he miscalculated his distance physician spoke and hit his left side of forehead against the shelf was without loss of consciousness or fall and complaining of pain his head. Patient rated his pain 3 /10 and states that one episode of vomiting at home and while he was walking to emergency room, was not able to walk for a short time. Patient denies focal neuro deficit, nausea in emergency room, other injuries. Patient states he takes morphine for chronic left Quan's palsy facial pain and next dose epi is at 1045. Patient does not give a good history and getting angry with asking him questions. Review of Systems Review of Systems Constitutional: Denies fever or chills [] Eyes: Denies change in visual acuity, redness, or eye pain [] HENT: Denies nasal congestion or sore throat [] Respiratory: Denies cough or shortness of breath [] Cardiovascular: No additional information not addressed in HPI [] GI: Denies abdominal pain, nausea, vomiting, bloody stools or diarrhea [] : Denies dysuria or hematuria [] Musculoskeletal: Denies back pain or joint pain [] Integument: Denies rash or skin lesions [] Neurologic: Reports headache, chronic focal weakness , denies sensory changes [] Endocrine: Denies polyuria or polydipsia [] All other systems were reviewed and found to be within normal limits, except as documented in this note. Allergies Allergies Allergies Coded Allergies Type Severity Reaction Last Updated Verified No Known Drug Allergies 05/04/16 No Physical Exam Physical Exam Constitutional: Well nourished, mild distress, non-toxic appearance. [] HENT: Normocephalic, small contusion of left forehead, bilateral external ears normal, oropharynx moist, no oral exudates, nose normal left facial palsy. [] Eyes: PERRLA, EOMI, conjunctiva normal, no discharge. [] Neck: Normal range of motion, no tenderness, supple, no stridor. [] Cardiovascular:Heart rate regular rhythm, no murmur [] Lungs & Thorax: Bilateral breath sounds clear to auscultation [] Skin: Warm, dry, no erythema, no rash. [] Back: No tenderness, no CVA tenderness. [] Extremities: No tenderness, no cyanosis, no clubbing, ROM intact, no edema. [] Neurologic: Alert and oriented X 3, left facial palsy, no other focal neuro deficit, normal sensory function Psychologic: Affect normal, judgement normal, mood normal. [] Current Patient Data Vital Signs Vital Signs Date Time Temp Pulse Resp B/P (MAP) Pulse Ox O2 Delivery O2 Flow Rate FiO2 10/24/17 09:37 98.0 68 16 100 Room Air EKG EKG [] Radiology/Procedures Radiology/Procedures [] [address] [address] IMAGING REPORT Signed PATIENT: KEVIN VILLA ACCOUNT: [id number] : 1950 LOCATION: ER AGE: 67 SEX: M EXAM STATUS: REG ER ORD. PHYSICIAN: KIT EVANS MD REASON: head injury on Eliquis PROCEDURE: CT HEAD AND CERVICAL SPINE WO CT head without contrast. CT cervical spine without contrast. Technique: Noncontrast CT imaging of the head and cervical spine with multiplanar reconstructions was acquired. History: Fell and hit left side of head, head pain, neck pain. CT head findings: No intracranial hemorrhage, mass, hydrocephalus or infarction. No acute ischemic changes. The left parotid gland demonstrates asymmetric density and nodularity superior of a presumed surgical resection site with nodularity extending anteriorly of the external auditory canal as well as superior of the canal. Orbits, mastoids, paranasal sinuses and bones are unremarkable. Impression: No acute cranial CT abnormality. Surgical resection of the left parotid gland. There is a air-containing defect deep to the skin at the resection site with increased soft tissue density and nodularity extending superiorly both anterior and superior of the external auditory canal, this could represent changes from incision and drainage with recurrent or residual soft tissue infection or changes of recurrent/residual malignancy. This appears to be more prominent anterior and superior to the external auditory canal from CT imaging one month ago. CT cervical spine findings: Craniocervical junction is intact. Cervical vertebral body height and alignment intact. No fracture of the cervical spine. Multilevel spinal canal and neural foraminal stenoses due to disc osteophytes and uncovertebral and facet spurring. Lung apices and paraspinal tissues are unremarkable. Impression: No acute osseous injury of the cervical spine. Cervical disc disease. DICTATED AND SIGNED BY: WILLIS THOMSON MD DATE: 10/24/17 1016 CC: KIT EVANS MD; MUSTAPHA CAVAZOS ~ Course & Med Decision Making Course & Med Decision Making Pertinent Imaging studies reviewed. (See chart for details) []discharge: I've spoken with the patient and/or caregivers. I've explained the patient's condition, diagnosis and treatment plan based on information available to me at this time. I've answered the patient's and/or caregivers questions and addressed any concerns. The patient and/or caregivers have a good understanding the patient's diagnosis, condition and treatment plan as can be expected at this point. Vital signs have been stabilized. The patient's condition is stable for discharge from the emergency department. The patient will pursue further outpatient evaluation with her primary care provider or other designated consulting physician as outlined in the discharge instructions. Patient and/or caregivers are agreeable to this plan of care and follow-up instructions have been explained in detail. The patient and/or caregivers have received these instructions in written format and expressed understanding of these discharge instructions. The patient and her caregivers are aware that if any significant change in condition or worsening of symptoms should prompt him to immediately return to this of the closest emergency department. If an emergent department is not readily available I would encourage him to call 911. Dragon Disclaimer Dragon Disclaimer This electronic medical record was generated, in whole or in part, using a voice recognition dictation system. Departure Departure: Impression: Primary Impression: Head injury Additional Impression: Facial contusion Disposition: 01 HOME, SELF-CARE (At 1944) Condition: IMPROVED Referrals: MUSTAPHA CAVAZOS (PCP) Patient Instructions: Facial or Scalp Contusion Additional Instructions: Continue home medication Follow-up with your primary care physician in 3-5 days Return to ER if not getting better Problem Qualifiers KIT EVANS MD Oct 24, 2017 09:58
--- NOTE | 2017-10-24 10:38 | RAD ---
CT head without contrast. CT cervical spine without contrast. Technique: Noncontrast CT imaging of the head and cervical spine with multiplanar reconstructions was acquired. History: Fell and hit left side of head, head pain, neck pain. CT head findings: No intracranial hemorrhage, mass, hydrocephalus or infarction. No acute ischemic changes. The left parotid gland demonstrates asymmetric density and nodularity superior of a presumed surgical resection site with nodularity extending anteriorly of the external auditory canal as well as superior of the canal. Orbits, mastoids, paranasal sinuses and bones are unremarkable. Impression: No acute cranial CT abnormality. Surgical resection of the left parotid gland. There is a air-containing defect deep to the skin at the resection site with increased soft tissue density and nodularity extending superiorly both anterior and superior of the external auditory canal, this could represent changes from incision and drainage with recurrent or residual soft tissue infection or changes of recurrent/residual malignancy. This appears to be more prominent anterior and superior to the external auditory canal from CT imaging one month ago. CT cervical spine findings: Craniocervical junction is intact. Cervical vertebral body height and alignment intact. No fracture of the cervical spine. Multilevel spinal canal and neural foraminal stenoses due to disc osteophytes and uncovertebral and facet spurring. Lung apices and paraspinal tissues are unremarkable. Impression: No acute osseous injury of the cervical spine. Cervical disc disease.
== END 2017-10-24 10:58 | disposition home or self-care (01) ==
LOC: ER 09:33
DX: S09.90XA Unspecified injury of head, initial encounter (principal); S00.83XA Contusion of other part of head, initial encounter; I48.91 Unspecified atrial fibrillation; K21.9 Gastro-esophageal reflux disease without esophagitis; E78.00 Pure hypercholesterolemia, unspecified; E11.9 Type 2 diabetes mellitus without complications; I10 Essential (primary) hypertension; Z86.73 Personal history of transient ischemic attack (TIA), and cerebral infarction without residual deficits; W19.XXXA Unspecified fall, initial encounter; Y93.89 Activity, other specified; Y99.8 Other external cause status; Y92.89 Other specified places as the place of occurrence of the external cause
CPT/HCPCS: 70450; 72125; 99284-25

== ENCOUNTER 2018-05-11 13:07 | Emergency (ER) | payer OTHER ==
[~2018-05-11] VITALS: Ht 177.8 cm; Wt 77.9 kg
[2018-05-11] MEDS ORDERED: IV NORMAL SALINE 1,000ML 1,000 ML IV ONE (13:30)
[2018-05-11 13:43] LABS: BASO # 0.1 x10^3/uL (0.0-0.2); BASO % 1 % (0-3); EOS % 0 % (0-3); HEMATOCRIT 27.6 % (39.0-53.0); HEMOGLOBIN 9.3 g/dL (13.0-17.5); LYMPH # 0.4 x10^3/uL (1.0-4.8); LYMPH % 2 % (24-48); MEAN CORPUSCULAR HEMOGLOBIN 33 pg (25-35); MEAN CORPUSCULAR HGB CONC 34 g/dL (31-37); MEAN CORPUSCULAR VOLUME 97 fL (79-100); MONO # 0.7 x10^3/uL (0.0-1.1); MONO % 4 % (0-9); NEUT % 93 % (31-73); PLATELET COUNT 295 x10^3/uL (140-400); RED BLOOD COUNT 2.84 x10^6/uL (4.30-5.70); RED CELL DISTRIBUTION WIDTH 13.4 % (11.5-14.5); WHITE BLOOD COUNT 17.2 x10^3/uL (4.0-11.0)
--- NOTE | 2018-05-11 13:54 | PHYS DOC ---
Past History Past Medical History: A-Fib, Arrhythmia, CVA, Diabetes, GERD, High Cholesterol , Hypertension Past Surgical History: No Surgical History Smoking: Non-smoker Alcohol Use: None Drug Use: None Adult General Chief Complaint Chief Complaint: BACK PAIN OR INJURY HPI HPI 67-year-old male presents after 2 falls at home. The patient was released from [facility] yesterday. His admission was for generalized weakness. The patient got fatigued and a bit dizzy and slowly fell to the ground first thing this morning. He then laid back down and took a nap. He woke up feeling a bit better. He was getting ready to go somewhere around noon today when he got dizzy and off balance and thought that he was about past out. He was unable to grab anything and believes he lost consciousness. He is unsure how long he was down, but he believes he was unconscious for more than just a few seconds. He complains of some head pain, but he has chronic left-sided facial pain due to invasive skin cancer. Patient has a left-sided facial droop and is slow to answer questions at baseline. He is on high-dose narcotics due to his cancer diagnosis. Patient has had no fever or chills at home. He does believe that the drainage from his facial wound has increased today after the fall. Review of Systems Review of Systems Constitutional: Denies fever or chills [] Eyes: Denies change in visual acuity, redness, or eye pain [] HENT: Facial cancer lesion[] Respiratory: Denies cough or shortness of breath [] Cardiovascular: No additional information not addressed in HPI [] GI: Denies abdominal pain, nausea, vomiting, bloody stools or diarrhea [] : Denies dysuria or hematuria [] Musculoskeletal: Denies back pain or joint pain [] Integument: Denies rash or skin lesions [] Neurologic: Headache[] Endocrine: Denies polyuria or polydipsia [] All other systems were reviewed and found to be within normal limits, except as documented in this note. Current Medications Current Medications Current Medications Medications (Trade) Dose Ordered Sig/Joaquin Start Time Stop Time Status Last Admin Dose Admin Sodium Chloride 1,000 ml @ 1,000 mls/hr 1X ONCE 05/11/18 13:30 05/11/18 14:29 Allergies Allergies Allergies Coded Allergies Type Severity Reaction Last Updated Verified No Known Drug Allergies 05/04/16 No Physical Exam Physical Exam Constitutional: Well developed, well nourished, no acute distress, non-toxic appearance. [] HENT: 7 cm round area of erosion on the left side of the face just anterior to the left ear. There is a yellowish, thin drainage.[] Eyes: PERRLA, EOMI, conjunctiva normal, no discharge. [] Neck: Normal range of motion, no tenderness, supple, no stridor. [] Cardiovascular:Heart rate regular rhythm, no murmur [] Lungs & Thorax: Bilateral breath sounds clear to auscultation [] Abdomen: Bowel sounds normal, soft, no tenderness, no masses, no pulsatile masses. [] Skin: Numerous small skin tears in various stages of healing.[] Back: No tenderness, no CVA tenderness. [] Extremities: No tenderness, no cyanosis, no clubbing, ROM intact, no edema. [] Neurologic: Alert and oriented X 3, normal motor function, normal sensory function. [] Psychologic: Affect frustrated, judgement normal, mood normal. [] Current Patient Data Lab Results Laboratory Tests Test 05/11/18 13:32 White Blood Count 17.2 x10^3/uL (4.0-11.0) H Red Blood Count 2.84 x10^6/uL (4.30-5.70) L Hemoglobin 9.3 g/dL (13.0-17.5) L Hematocrit 27.6 % (39.0-53.0) L Mean Corpuscular Volume 97 fL (79-100) Mean Corpuscular Hemoglobin 33 pg (25-35) Mean Corpuscular Hemoglobin Concent 34 g/dL (31-37) Red Cell Distribution Width 13.4 % (11.5-14.5) Platelet Count 295 x10^3/uL (140-400) # Neutrophils (%) (Auto) 93 % (31-73) H Lymphocytes (%) (Auto) 2 % (24-48) L Monocytes (%) (Auto) 4 % (0-9) Eosinophils (%) (Auto) 0 % (0-3) Basophils (%) (Auto) 1 % (0-3) Neutrophils # (Auto) 16.0 x10^3uL (1.8-7.7) H Lymphocytes # (Auto) 0.4 x10^3/uL (1.0-4.8) L Monocytes # (Auto) 0.7 x10^3/uL (0.0-1.1) Eosinophils # (Auto) 0.0 x10^3/uL (0.0-0.7) Basophils # (Auto) 0.1 x10^3/uL (0.0-0.2) Platelet Estimate Pending EKG EKG [] Radiology/Procedures Radiology/Procedures [] Impressions: 3 views lumbar spine 05/11/2018 CLINICAL INDICATION: Fall with low back pain. COMPARISON: None. FINDINGS: There are 5 nonrib-bearing lumbar-type vertebral bodies with the 1st considered L1. Vertebral body heights are maintained. Multilevel disc degeneration with disc space narrowing, endplate sclerosis and marginal osteophyte formation to a mild degree T12-L1 through L4-L5 and a moderate degree at L5-S1. Minimal grade 1 retrolisthesis L1-L2 and L2 on L3. Lower lumbar facet hypertrophy. There are nodular densities overlying the medial left lung base. IMPRESSION: 1. Multilevel lumbar spondylosis, as detailed. 2. Nodular densities overlying the medial left lung base, may be artifactual. Dedicated chest radiograph is recommended to exclude pulmonary nodule. Electronically signed by: She Dobbins MD (05/11/2018 2:24 PM) [id number] DICTATED AND SIGNED BY: SHE DOBBINS MD DATE: 05/11/18 1422 CC: JF MORENO DO; MUSTAPHA CAVAZOS CT HEAD WO CONTRAST dated 05/11/2018 1:16 PM Indication: Pain.S/PFALL TODAY, HIT LT SIDED OF HEAD SWELLING UP BY THE EAR , HX OF CANCER LEUKEMIA. Comparison: 10/24/2017. Technique: Contiguous axial imaging the head was performed from skull base to vertex. One or more of the following individualized dose reduction techniques were utilized for this examination: 1. Automated exposure control 2. Adjustment of the mA and/or kV according to patient size 3. Use of iterative reconstruction technique Findings: Large soft tissue over the left temporal bone which appears to invade the internal auditory canal. There are destructive changes of the mastoid portion of the temporal bone with soft tissue infiltrating mastoid air cells and middle ear cavity. Soft tissue mass also extends anteriorly along the zygomatic arch with probable pathologic fracture. There is abnormal attenuation within the left temporal lobe with associated vasogenic edema and mass effect upon the temporal horn and left lateral ventricle. There is probable dehiscence of the temporal bone with possible invasion of the middle cranial fossa and left cerebellum. Destructive changes of the left TMJ are also noted. Ventricles and sulci are mildly prominent for age. No midline shift. Minimal patchy low density in the deep/subcortical periventricular white matter. No hemorrhage. Visualized paranasal sinuses are clear. IMPRESSION: 1. Large soft tissue mass at the left temporal scalp with invasion of the internal auditory canal, left mastoid air cells and middle ear. There are destructive changes of the left temporal bone with probable pathologic fracture of the left zygomatic arch. 2. There is dehiscence of the left temporal bone with probable extension of soft tissue mass into the middle cranial fossa and possibly the left cerebellum. Recommend MRI brain with and without contrast for better evaluation. 3. Vasogenic edema of the left temporal lobe with mass effect upon the temporal horn of the left lateral ventricle. Results discussed with ER physician at approximately 2:40 PM on the day of the exam. Addendum: An exam from [facility] dated 03/23/2018 obtained. The soft tissue mass over the left temporal bone has significantly increased in size from prior study and bony destructive changes have progressed. The vasogenic edema and mass effect in the left temporal lobe is new. MRI brain with and without contrast would better detail the extent of the lesion. Electronically signed by: Jonny Hendricks MD (05/11/2018 2:43 PM) [id number] DICTATED AND SIGNED BY: JONNY HENDRICKS MD DATE: 05/11/18 1428 CC: JF MORENO DO; MUSTAPHA CAVAZOS Course & Med Decision Making Course & Med Decision Making Pertinent Labs and Imaging studies reviewed. (See chart for details) The patient's labs are significant for an elevated white count with a left shift. He also has evidence of infection on peripheral blood smear. See results for more details. The patient's head CT shows invasion of the cancer into the cranium at this time. This could be the cause of the patient's dizziness and falls. I discussed this with the patient and my strong recommendation that he be transferred to [facility]. The patient has stated that he wants to go home tonight and would rather go to the hospital on his own tomorrow. I stressed to him that there is a chance his condition worsen. I told him that he could have an infection that could worsen. He may continue to be unsteady. These could be detrimental to his health. He states verbal understanding of all these issues. He still wants to be discharged to go home for tonight and he will go to [place] on his own tomorrow. [] Dragon Disclaimer Dragon Disclaimer This electronic medical record was generated, in whole or in part, using a voice recognition dictation system. Departure Departure: Referrals: MUSTAPHA CAAVZOS (PCP) JF MORENO DO May 11, 2018 13:54
[2018-05-11 13:57] LABS: ALBUMIN 2.3 g/dL (3.4-5.0); ALBUMIN/GLOBULIN RATIO 0.6 (1.0-1.7); CALCIUM 8.9 mg/dL (8.5-10.1); GFR 74.5; POTASSIUM 4.3 mmol/L (3.5-5.1); TOTAL BILIRUBIN 0.3 mg/dL (0.2-1.0); TOTAL PROTEIN 6.4 g/dL (6.4-8.2)
[2018-05-11] MEDS ORDERED: MORPHINE ER 15 MG TABLET.ER PO ONE (14:00)
[2018-05-11 14:05] LABS: % BANDS 3 % (0-9); % LYMPHS 6 % (24-48); % MONOS 1 % (0-10); % SEGS 90 % (35-66)
[2018-05-11 14:06] LABS: PLT ESTIMATE ADEQUATE (ADEQUATE); TOXIC GRANULATION PRESENT
--- NOTE | 2018-05-11 14:27 | RAD ---
3 views lumbar spine 05/11/2018 CLINICAL INDICATION: Fall with low back pain. COMPARISON: None. FINDINGS: There are 5 nonrib-bearing lumbar-type vertebral bodies with the 1st considered L1. Vertebral body heights are maintained. Multilevel disc degeneration with disc space narrowing, endplate sclerosis and marginal osteophyte formation to a mild degree T12-L1 through L4-L5 and a moderate degree at L5-S1. Minimal grade 1 retrolisthesis L1-L2 and L2 on L3. Lower lumbar facet hypertrophy. There are nodular densities overlying the medial left lung base. IMPRESSION: 1. Multilevel lumbar spondylosis, as detailed. 2. Nodular densities overlying the medial left lung base, may be artifactual. Dedicated chest radiograph is recommended to exclude pulmonary nodule. Electronically signed by: Jamir Dobbins MD (05/11/2018 2:24 PM) [id number]
--- NOTE | 2018-05-11 14:46 | RAD ---
CT HEAD WO CONTRAST dated 05/11/2018 1:16 PM Indication: Pain.S/PFALL TODAY, HIT LT SIDED OF HEAD SWELLING UP BY THE EAR , HX OF CANCER LEUKEMIA. Comparison: 10/24/2017. Technique: Contiguous axial imaging the head was performed from skull base to vertex. One or more of the following individualized dose reduction techniques were utilized for this examination: 1. Automated exposure control 2. Adjustment of the mA and/or kV according to patient size 3. Use of iterative reconstruction technique Findings: Large soft tissue over the left temporal bone which appears to invade the internal auditory canal. There are destructive changes of the mastoid portion of the temporal bone with soft tissue infiltrating mastoid air cells and middle ear cavity. Soft tissue mass also extends anteriorly along the zygomatic arch with probable pathologic fracture. There is abnormal attenuation within the left temporal lobe with associated vasogenic edema and mass effect upon the temporal horn and left lateral ventricle. There is probable dehiscence of the temporal bone with possible invasion of the middle cranial fossa and left cerebellum. Destructive changes of the left TMJ are also noted. Ventricles and sulci are mildly prominent for age. No midline shift. Minimal patchy low density in the deep/subcortical periventricular white matter. No hemorrhage. Visualized paranasal sinuses are clear. IMPRESSION: 1. Large soft tissue mass at the left temporal scalp with invasion of the internal auditory canal, left mastoid air cells and middle ear. There are destructive changes of the left temporal bone with probable pathologic fracture of the left zygomatic arch. 2. There is dehiscence of the left temporal bone with probable extension of soft tissue mass into the middle cranial fossa and possibly the left cerebellum. Recommend MRI brain with and without contrast for better evaluation. 3. Vasogenic edema of the left temporal lobe with mass effect upon the temporal horn of the left lateral ventricle. Results discussed with ER physician at approximately 2:40 PM on the day of the exam. Addendum: An exam from [facility] dated 03/23/2018 obtained. The soft tissue mass over the left temporal bone has significantly increased in size from prior study and bony destructive changes have progressed. The vasogenic edema and mass effect in the left temporal lobe is new. MRI brain with and without contrast would better detail the extent of the lesion. Electronically signed by: Jonny Hendricks MD (05/11/2018 2:43 PM) [facility]
[2018-05-11 16:10] VITALS: BP 106/60
[2018-05-11] MEDS ORDERED: HEPARIN PF 500 UNIT/5 ML DISP.SYRIN. IV ONE (16:15)
== END 2018-05-11 16:10 | disposition home or self-care (01) ==
LOC: ER 13:07
DX: R53.1 Weakness (principal); R42 Dizziness and giddiness; R51 Headache; D72.829 Elevated white blood cell count, unspecified; M47.896 Other spondylosis, lumbar region; J98.4 Other disorders of lung; G89.29 Other chronic pain; I48.91 Unspecified atrial fibrillation; E11.9 Type 2 diabetes mellitus without complications; K21.9 Gastro-esophageal reflux disease without esophagitis; E78.00 Pure hypercholesterolemia, unspecified; I10 Essential (primary) hypertension; Z86.73 Personal history of transient ischemic attack (TIA), and cerebral infarction without residual deficits; W18.30XA Fall on same level, unspecified, initial encounter; Y93.89 Activity, other specified; Y92.89 Other specified places as the place of occurrence of the external cause; Y99.8 Other external cause status
CPT/HCPCS: 36415; 36556; 70450; 72100; 80053; 85007; 85025; 96361; 96374; 99285-25; J7030

== ENCOUNTER 2018-09-11 12:58 | Emergency (ER) | payer OTHER ==
[~2018-09-11] VITALS: Ht 177.8 cm; Wt 86.3 kg
[~2018-09-11 12:58] MED LIST changes: -CARV6.252 PO; +CARV6.2541 PO; -DIGO125T PO; +DIGO125T17 PO; -OXYC-328 PO; +OXYC1TAB22 PO
[2018-09-11 13:00] VITALS: BP 137/74
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
== END 2018-09-11 15:31 | disposition home or self-care (01) ==
LOC: ER 12:58
DX: S06.0X0A Concussion without loss of consciousness, initial encounter (principal); R51 Headache; G51.0 Bell's palsy; I48.91 Unspecified atrial fibrillation; E11.9 Type 2 diabetes mellitus without complications; K21.9 Gastro-esophageal reflux disease without esophagitis; E78.00 Pure hypercholesterolemia, unspecified; I10 Essential (primary) hypertension; Z86.73 Personal history of transient ischemic attack (TIA), and cerebral infarction without residual deficits; V49.49XA Driver injured in collision with other motor vehicles in traffic accident, initial encounter; Y93.I9 Activity, other involving external motion; Y92.488 Other paved roadways as the place of occurrence of the external cause; Y99.8 Other external cause status
CPT/HCPCS: 70450; 72125; 99284-25

== ENCOUNTER 2019-01-19 15:54 | Emergency (ER) | payer OTHER ==
[2019-01-19 16:02] VITALS: BP 111/59
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
[2019-01-19] MEDS ORDERED: MORPHINE SULFATE 4 MG/ML DISP.SYRIN. IM ONE (17:00)
== END 2019-01-19 17:03 | disposition home or self-care (01) ==
LOC: ER 15:54
DX: S16.1XXA Strain of muscle, fascia and tendon at neck level, initial encounter (principal); W18.39XA Other fall on same level, initial encounter; Y93.89 Activity, other specified; Y92.89 Other specified places as the place of occurrence of the external cause; Y99.8 Other external cause status
CPT/HCPCS: 70450; 72125; 96372; 99284; J2270

== ENCOUNTER 2019-02-10 18:10 | Emergency (ER) | payer OTHER ==
[~2019-02-10] VITALS: Ht 177.8 cm; Wt 49.9 kg
--- NOTE | 2019-02-10 18:20 | ED.ADGEN ---
Past History Past Medical History: Cancer, Other Past Surgical History: Cancer Surgery, Other Smoking: Non-smoker Alcohol Use: None Drug Use: None Adult General Chief Complaint Chief Complaint ".. I was going into the [employer]. To get something to eat... I was walk around the side of the truck to get my walker out of the back... Got really dizzy and went down hard on my right side.... I hit my head here on rt...my Rt. hand , elbow and knee got banged up..." HPI HPI Patient is a 68 year old male who presents with above hx and complaints of fall. Patient reportedly had a transient loss of consciousness per his .. Patient now back at baseline per . Patient does have an extensive medical history most recent is skin cancer on his left forearm. Patient was started on chemotherapy but he stopped because of how it made him feel. Patient then tried radiation with minimal results. Patient normally follows with Dr. Joyce. Pt. demanding discharge after arrival. Pt. reportedly on hospice. Review of Systems Review of Systems Constitutional: Denies fever or chills [] Eyes: Denies change in visual acuity, redness, or eye pain [] HENT: Denies nasal congestion or sore throat [] Complaints of contusions to head. Respiratory: Denies cough or shortness of breath [] Cardiovascular: No additional information not addressed in HPI [] GI: Denies abdominal pain, nausea, vomiting, bloody stools or diarrhea [] : Denies dysuria or hematuria [] Musculoskeletal: Denies back pain or joint pain []Complaints of contusions and abrasion to Rt. elbow, hand and knee. Integument: Denies rash or skin lesions [] Neurologic: Denies headache, focal weakness or sensory changes [] Endocrine: Denies polyuria or polydipsia [] All other systems were reviewed and found to be within normal limits, except as documented in this note. Family History Family History Noncontributory Current Medications Current Medications Current Medications Medications (Trade) Dose Ordered Sig/Joaquin Start Time Stop Time Status Last Admin Dose Admin Diphtheria/ Tetanus/Acell Pertussis (Boostrix) 0.5 ml ONCE ONCE 02/10/19 18:45 02/10/19 18:46 DC Lactated Ringer's 1,000 ml @ 1,000 mls/hr Q1H 02/10/19 18:45 02/10/19 19:44 DC Mupirocin (Bactroban) 6 christelle 1X STAT 02/10/19 18:40 02/10/19 18:43 DC Potassium Chloride (Klor-Con) 40 meq 1X ONCE 02/10/19 19:30 02/10/19 19:31 DC 02/10/19 19:41 40 MEQ Allergies Allergies Allergies Coded Allergies Type Severity Reaction Last Updated Verified No Known Drug Allergies 05/04/16 No Physical Exam Physical Exam Constitutional: Moderate acute distress, non-toxic appearance. [] HENT: Normocephalic, contusion and abrasion to right fore head , bilateral external ears normal, oropharynx moist, no oral exudates, nose normal. [] Eyes: PERRLA, EOMI, conjunctiva normal, no discharge. [] Neck: Normal range of motion, no tenderness, supple, no stridor. [] Cardiovascular:Heart ill regular rate , ill regular rhythm, no murmur [] Lungs & Thorax: Bilateral breath sounds equal A packs with scattered wheezes auscultation [] Port on R.t upper chest wall. Abdomen: Bowel sounds normal, soft, no tenderness, no masses, no pulsatile masses. [] Skin: Warm, dry, no erythema, no rash. Poor turgor. Left forearm bandage in the area of cancer Back: No tenderness, no CVA tenderness. [] Extremities: No tenderness, no cyanosis, no clubbing, ROM intact, no edema. Arthritic changes. Contusion and abrasion to Rt. elbow, Rt. hand and Rt. knee. Can flex and extend knee and elbow with some discomfort.. Muscle wasting. Neurologic: Alert and oriented X 3, VERY HARD OF HEARING- chronic, ,moves all ext. on reqest, , has distal sensory function, no gross focal deficits noted from baseline per . Psychologic: Affect anxious , judgement normal, mood normal. [] Current Patient Data Vital Signs Vital Signs Date Time Temp Pulse Resp B/P (MAP) Pulse Ox O2 Delivery O2 Flow Rate FiO2 02/10/19 18:35 98.3 83 16 97 Lab Results Laboratory Tests Test 02/10/19 18:23 White Blood Count 5.7 x10^3/uL (4.0-11.0) Red Blood Count 2.93 x10^6/uL (4.30-5.70) L Hemoglobin 9.3 g/dL (13.0-17.5) L Hematocrit 27.5 % (39.0-53.0) L Mean Corpuscular Volume 94 fL (79-100) Mean Corpuscular Hemoglobin 32 pg (25-35) Mean Corpuscular Hemoglobin Concent 34 g/dL (31-37) Red Cell Distribution Width 15.9 % (11.5-14.5) H Platelet Count 386 x10^3/uL (140-400) Neutrophils (%) (Auto) 83 % (31-73) H Lymphocytes (%) (Auto) 8 % (24-48) L Monocytes (%) (Auto) 8 % (0-9) Eosinophils (%) (Auto) 1 % (0-3) Basophils (%) (Auto) 0 % (0-3) Neutrophils # (Auto) 4.7 x10^3uL (1.8-7.7) Lymphocytes # (Auto) 0.5 x10^3/uL (1.0-4.8) L Monocytes # (Auto) 0.5 x10^3/uL (0.0-1.1) Eosinophils # (Auto) 0.0 x10^3/uL (0.0-0.7) Basophils # (Auto) 0.0 x10^3/uL (0.0-0.2) Prothrombin Time 10.8 SEC (9.4-11.4) Prothrombin Time INR 1.0 (0.9-1.1) Activated Partial Thromboplast Time 29 SEC (23-33) D-Dimer (Faye) 1.44 mg/L (0.00-0.50) H Sodium Level 137 mmol/L (136-145) Potassium Level 2.9 mmol/L (3.5-5.1) *L Chloride Level 101 mmol/L (98-107) Carbon Dioxide Level 28 mmol/L (21-32) Anion Gap 8 (6-14) Blood Urea Nitrogen 9 mg/dL (8-26) Creatinine 0.9 mg/dL (0.7-1.3) Estimated GFR (Cockcroft-Gault) 83.9 Glucose Level 152 mg/dL (70-99) H Calcium Level 8.6 mg/dL (8.5-10.1) Magnesium Level 1.6 mg/dL (1.8-2.4) L Total Bilirubin 0.4 mg/dL (0.2-1.0) Direct Bilirubin 0.2 mg/dL (0.0-0.2) Aspartate Amino Transferase (AST) 15 U/L (15-37) Alanine Aminotransferase (ALT) 12 U/L (16-63) L Alkaline Phosphatase 72 U/L (46-116) Creatine Kinase 20 U/L (39-308) L Troponin I Quantitative < 0.017 ng/mL (0-0.055) YX-Uzb-W-Type Natriuretic Peptide 1690 pg/mL (0-124) H Total Protein 6.5 g/dL (6.4-8.2) Albumin 2.4 g/dL (3.4-5.0) L Lipase 45 U/L (73-393) L EKG EKG My interpretation of EKG shows a sinus rhythm with frequent premature atrial contractors. Has some anterior septal changes. Does have some findings consistent with ventricular strain and T-wave abnormalities. Has U/T waves on V2 34 and 5[] Radiology/Procedures Radiology/[place] [address] IMAGING REPORT Signed PATIENT: KEVIN VILLA PACCOUNT: [id number] : 1950 LOCATION: ER AGE: 68 SEX: M EXAM STATUS: DEP ER ORD. PHYSICIAN: MICHAEL PARSON MD REASON: fall PROCEDURE: PORTABLE CHEST 1V Chest radiograph 02/10/2019 6:37 PM INDICATION: Fall COMPARISON: September 12, 2017 TECHNIQUE: Frontal view of the chest is provided. FINDINGS: The cardiomediastinal silhouette is within normal limits. Right chest wall infusion port catheter is identified with the distal tip terminating in the expected region of the cavoatrial junction. There are no pleural effusions. There is no pulmonary vascular congestion. There is no pneumothorax. The lungs are clear. No significant osseous abnormality is identified. IMPRESSION: No acute cardiopulmonary process. New right chest wall infusion port catheter with the distal tip projecting over the expected region of the cavoatrial junction. Electronically signed by: Gregory Lui MD (02/10/2019 10:53 PM) [facility] DICTATED AND SIGNED BY: GREGORY LUI MD DATE: 02/10/192252 CC: MICHAEL PARSON MD; JOE JOYCE DO ~ [address] [address] IMAGING REPORT Signed PATIENT: KEVIN VILLA PACCOUNT: [id number] : 1950 LOCATION: ER AGE: 68 SEX: M EXAM STATUS: DEP ER ORD. PHYSICIAN: MICHAEL PARSON MD REASON: fall PROCEDURE: ELBOW RIGHT 3V ELBOW RIGHT 3V 02/10/2019 6:37 PM INDICATION: Fall COMPARISON: None available. TECHNIQUE: 3 views of the right elbow are provided. FINDINGS: There is no acute fracture or dislocation. Limited evaluation for joint effusion due to positioning. Enthesopathy is noted along the olecranon. Bone mineralization is within normal limits. Joint spaces are maintained. Regional soft tissues are within normal limits. There is no soft tissue gas or osseous erosion. IMPRESSION: No acute fracture or dislocation. Limited evaluation for elbow joint effusion due to positioning. Electronically signed by: Gregory Lui MD (02/10/2019 11:01 PM) [facility] DICTATED AND SIGNED BY: GREGORY LUI MD DATE: 02/10/192300 CC: MICHAEL PARSON MD; JOE JOYCE DO ~ [address] [address] IMAGING REPORT Signed PATIENT: KEVIN VILLA PACCOUNT: [id number] : 1950 LOCATION: ER AGE: 68 SEX: M EXAM STATUS: DEP ER ORD. PHYSICIAN: MICHAEL PARSON MD REASON: fall PROCEDURE: HAND RIGHT 3V HAND RIGHT 3V 02/10/2019 6:37 PM INDICATION: Fall COMPARISON: None available. TECHNIQUE: 3 views the right hand are provided. FINDINGS: There is no acute fracture or dislocation. Bone mineralization is within normal limits. Joint spaces are maintained. Regional soft tissues are within normal limits. There is no soft tissue gas or osseous erosion. IMPRESSION: No acute fracture or dislocation. Electronically signed by: Gregory Lui MD (02/10/2019 11:01 PM) [facility] DICTATED AND SIGNED BY: GREGORY LUI MD DATE: 02/10/192300 CC: MICHAEL PARSON MD; JOE JOYCE DO ~PATIENT: KEVIN VILLA PACCOUNT: [id number]#: [id number] : 1950 LOCATION: ER AGE: 68 SEX: M EXAM STATUS: REG ER ORD. PHYSICIAN: MICHAEL PARSON MD REASON: fall, struck head, loc PROCEDURE: CT HEAD AND CERVICAL SPINE WO RS Compliance Statement: One or more of the following individualized dose reduction techniques were utilized for this examination: 1. Automated exposure control 2. Adjustment of the mA and/or kV according to patient size 3. Use of iterative reconstruction technique CT head and cervical spine without contrast 02/10/2019 6:37 PM INDICATION: Fall, struck head with loss of consciousness COMPARISON: CT head January 19, 2019 TECHNIQUE: Multiple axial CT images of the head were obtained from skull base through the vertex without intravenous contrast. Multiple axial CT images of the cervical spine were obtained without intravenous contrast. Coronal and sagittal reformats are provided. FINDINGS: Head: Mild right parietal scalp edema. No calvarial defect. Ventricles, sulci and basal cisterns are within normal limits. There is no hydrocephalus. Cordova-white matter differentiation is normal. There is no acute intracranial hemorrhage. There is no mass, mass effect or midline shift. Posterior fossa is normal in appearance. Visualized portions of the orbits are normal. Paranasal sinuses are well aerated. Moderate right mastoid effusion. Left mastoidectomy changes are identified with opacification of the left mastoid air cells. There is erosion of the jugular plate on the correlation with post surgical changes is recommended. Cervical spine: Minimal widening of the atlantodental interval measuring 4 mm, within normal limits. Erosive changes are identified along the dens likely reflecting underlying inflammatory arthropathy. There is minimal anterolisthesis of C2 on C3. Minimal retrolisthesis of C3 on C4. Moderate disc height loss at C3-C4 and C5-C6. Mild disc height loss at C4-C5 and C6-C7. There is mild to moderate facet arthropathy, right greater than left. There is osseous fusion of the C2-C3 facet joint on the right. Mild to moderate uncovertebral joint disease with varying degrees of mild to moderate neuroforaminal stenosis. Multilevel mild spinal canal stenosis. Vertebral body heights are maintained without evidence for acute fracture. There is no prevertebral soft tissue swelling. Thyroid gland is normal in appearance. Visualized portions of the lung apices are normal without evidence for suspicious pulmonary nodule or infiltrate. IMPRESSION: 1. No acute intracranial hemorrhage. 2. No acute fracture of cervical spine. Moderate cervical spondylosis. Suggestion of inflammatory arthropathy at the atlantoaxial articulation with widening of the right atlantoaxial interval. Correlate with any history of rheumatoid arthritis. 3. Left mastoidectomy changes are identified with fluid identified in the remaining mastoid air cells. There is erosion of the jugular plate possible erosion of the inner table of the left occipital bone. Correlate with postsurgical changes. Electronically signed by: Gregory Lui MD (02/10/2019 7:35 PM) [facility] DICTATED AND SIGNED BY: GREGORY LUI MD DATE: 02/10/191934 CC: MICHAEL PARSON MD; JOE JOYCE DO ~ [][place] [address] IMAGING REPORT Signed PATIENT: KEVIN VILLA PACCOUNT: [id number] : 1950 LOCATION: ER AGE: 68 SEX: M EXAM STATUS: DEP ER ORD. PHYSICIAN: MICHAEL PARSON MD REASON: fall PROCEDURE: KNEE RIGHT 4V KNEE RIGHT 4V 02/10/2019 6:37 PM INDICATION: Fall COMPARISON: None available. TECHNIQUE: 4 views the right knee are provided. FINDINGS: There is no acute fracture or dislocation. No significant knee joint effusion. Bone mineralization is within normal limits. Mild medial femorotibial joint space narrowing with marginal osteophytosis. Regional soft tissues are within normal limits. There is no soft tissue gas or osseous erosion. IMPRESSION: No acute fracture or dislocation. Mild medial femorotibial osteoarthrosis. Electronically signed by: Gregory Lui MD (02/10/2019 11:00 PM) [facility] DICTATED AND SIGNED BY: GREGORY LUI MD DATE: 02/10/19 2300 CC: MICHAEL PARSON MD; JOE JOYCE DO ~ Course & Med Decision Making Course & Med Decision Making Pertinent Labs and Imaging studies reviewed. (See chart for details) Pt. demanding discharge shortly after here in ED. Pt. did agree to take potassium prior to his discharge. Pt. informed of his available labs. Pt. states he will follow up with Dr Joyce. Pt. ambulatory at time of discharge. Advised to return any time if he wished to complete his evaluation. [] Final Impression Final Impression 1. Fall[] 2. Contusions and abrasions 3. Head injury 4. Anemia 9.3 5. Elevated d-dimer 1.44 6. Critical hypokalemia 2.9 7. Hypo-magnesium 1.6 8. History of skin cancer Dragon Disclaimer Dragon Disclaimer This electronic medical record was generated, in whole or in part, using a voice recognition dictation system. Dragon Disclaimer This chart was dictated in whole or in part using Voice Recognition software in a busy, high-work load, and often noisy Emergency Department environment. It may contain unintended and wholly unrecognized errors or omissions. MICHAEL PARSNO MD Feb 10, 2019 18:20
[2019-02-10 18:35] VITALS: BP 154/58
[2019-02-10] MEDS: MUPIROCIN 2% TOPICAL OINTMENT 22GM TUBE. TP STA ×2 (18:40→19:25)
[2019-02-10] MEDS: IV RINGERS SOLUTION,LACTATED 1,000 ML IV SCH ×2 (18:45→19:25)
[2019-02-10] MEDS ORDERED: DIPHTH,PERTUSS(ACELL),TET TOX 0.5 ML DISP.SYRIN. VAX IM ONE (18:45)
[2019-02-10 18:49] LABS: BASO % 0 % (0-3); EOS % 1 % (0-3); HEMATOCRIT 27.5 % (39.0-53.0); HEMOGLOBIN 9.3 g/dL (13.0-17.5); LYMPH # 0.5 x10^3/uL (1.0-4.8); LYMPH % 8 % (24-48); MEAN CORPUSCULAR HEMOGLOBIN 32 pg (25-35); MEAN CORPUSCULAR HGB CONC 34 g/dL (31-37); MEAN CORPUSCULAR VOLUME 94 fL (79-100); MONO # 0.5 x10^3/uL (0.0-1.1); MONO % 8 % (0-9); NEUT # 4.7 x10^3uL (1.8-7.7); NEUT % 83 % (31-73); PLATELET COUNT 386 x10^3/uL (140-400); RED BLOOD COUNT 2.93 x10^6/uL (4.30-5.70); RED CELL DISTRIBUTION WIDTH 15.9 % (11.5-14.5); WHITE BLOOD COUNT 5.7 x10^3/uL (4.0-11.0)
[2019-02-10 19:04] LABS: ALBUMIN 2.4 g/dL (3.4-5.0); CALCIUM 8.6 mg/dL (8.5-10.1); CREATININE 0.9 mg/dL (0.7-1.3); DIRECT BILIRUBIN 0.2 mg/dL (0.0-0.2); GFR 83.9; MAGNESIUM 1.6 mg/dL (1.8-2.4); TOTAL BILIRUBIN 0.4 mg/dL (0.2-1.0); TOTAL PROTEIN 6.5 g/dL (6.4-8.2)
[2019-02-10 19:06] LABS: POTASSIUM 2.9 mmol/L (3.5-5.1)
[2019-02-10] MEDS ORDERED: POTASSIUM CHLORIDE 20 MEQ TABLET.ER. PO ONE (19:30)
--- NOTE | 2019-02-10 19:38 | RAD ---
PQRS Compliance Statement: One or more of the following individualized dose reduction techniques were utilized for this examination: 1. Automated exposure control 2. Adjustment of the mA and/or kV according to patient size 3. Use of iterative reconstruction technique CT head and cervical spine without contrast 02/10/2019 6:37 PM INDICATION: Fall, struck head with loss of consciousness COMPARISON: CT head January 19, 2019 TECHNIQUE: Multiple axial CT images of the head were obtained from skull base through the vertex without intravenous contrast. Multiple axial CT images of the cervical spine were obtained without intravenous contrast. Coronal and sagittal reformats are provided. FINDINGS: Head: Mild right parietal scalp edema. No calvarial defect. Ventricles, sulci and basal cisterns are within normal limits. There is no hydrocephalus. Cordova-white matter differentiation is normal. There is no acute intracranial hemorrhage. There is no mass, mass effect or midline shift. Posterior fossa is normal in appearance. Visualized portions of the orbits are normal. Paranasal sinuses are well aerated. Moderate right mastoid effusion. Left mastoidectomy changes are identified with opacification of the left mastoid air cells. There is erosion of the jugular plate on the correlation with post surgical changes is recommended. Cervical spine: Minimal widening of the atlantodental interval measuring 4 mm, within normal limits. Erosive changes are identified along the dens likely reflecting underlying inflammatory arthropathy. There is minimal anterolisthesis of C2 on C3. Minimal retrolisthesis of C3 on C4. Moderate disc height loss at C3-C4 and C5-C6. Mild disc height loss at C4-C5 and C6-C7. There is mild to moderate facet arthropathy, right greater than left. There is osseous fusion of the C2-C3 facet joint on the right. Mild to moderate uncovertebral joint disease with varying degrees of mild to moderate neuroforaminal stenosis. Multilevel mild spinal canal stenosis. Vertebral body heights are maintained without evidence for acute fracture. There is no prevertebral soft tissue swelling. Thyroid gland is normal in appearance. Visualized portions of the lung apices are normal without evidence for suspicious pulmonary nodule or infiltrate. IMPRESSION: 1. No acute intracranial hemorrhage. 2. No acute fracture of cervical spine. Moderate cervical spondylosis. Suggestion of inflammatory arthropathy at the atlantoaxial articulation with widening of the right atlantoaxial interval. Correlate with any history of rheumatoid arthritis. 3. Left mastoidectomy changes are identified with fluid identified in the remaining mastoid air cells. There is erosion of the jugular plate possible erosion of the inner table of the left occipital bone. Correlate with postsurgical changes. Electronically signed by: Angela Hutton MD (02/10/2019 7:35 PM) [facility]
--- NOTE | 2019-02-10 22:57 | RAD ---
Chest radiograph 02/10/2019 6:37 PM INDICATION: Fall COMPARISON: September 12, 2017 TECHNIQUE: Frontal view of the chest is provided. FINDINGS: The cardiomediastinal silhouette is within normal limits. Right chest wall infusion port catheter is identified with the distal tip terminating in the expected region of the cavoatrial junction. There are no pleural effusions. There is no pulmonary vascular congestion. There is no pneumothorax. The lungs are clear. No significant osseous abnormality is identified. IMPRESSION: No acute cardiopulmonary process. New right chest wall infusion port catheter with the distal tip projecting over the expected region of the cavoatrial junction. Electronically signed by: Angela Hutton MD (02/10/2019 10:53 PM) [facility]
--- NOTE | 2019-02-10 23:02 | RAD ---
KNEE RIGHT 4V 02/10/2019 6:37 PM INDICATION: Fall COMPARISON: None available. TECHNIQUE: 4 views the right knee are provided. FINDINGS: There is no acute fracture or dislocation. No significant knee joint effusion. Bone mineralization is within normal limits. Mild medial femorotibial joint space narrowing with marginal osteophytosis. Regional soft tissues are within normal limits. There is no soft tissue gas or osseous erosion. IMPRESSION: No acute fracture or dislocation. Mild medial femorotibial osteoarthrosis. Electronically signed by: Angela Hutton MD (02/10/2019 11:00 PM) [facility]
--- NOTE | 2019-02-10 23:04 | RAD ---
ELBOW RIGHT 3V 02/10/2019 6:37 PM INDICATION: Fall COMPARISON: None available. TECHNIQUE: 3 views of the right elbow are provided. FINDINGS: There is no acute fracture or dislocation. Limited evaluation for joint effusion due to positioning. Enthesopathy is noted along the olecranon. Bone mineralization is within normal limits. Joint spaces are maintained. Regional soft tissues are within normal limits. There is no soft tissue gas or osseous erosion. IMPRESSION: No acute fracture or dislocation. Limited evaluation for elbow joint effusion due to positioning. Electronically signed by: Angela Hutton MD (02/10/2019 11:01 PM) [facility]
--- NOTE | 2019-02-10 23:04 | RAD ---
HAND RIGHT 3V 02/10/2019 6:37 PM INDICATION: Fall COMPARISON: None available. TECHNIQUE: 3 views the right hand are provided. FINDINGS: There is no acute fracture or dislocation. Bone mineralization is within normal limits. Joint spaces are maintained. Regional soft tissues are within normal limits. There is no soft tissue gas or osseous erosion. IMPRESSION: No acute fracture or dislocation. Electronically signed by: Anglea Hutton MD (02/10/2019 11:01 PM) [facility]
--- NOTE | 2019-02-11 01:55 | EKG ---
[address] [address] Test Date: 2019-02-10 Test Time: 18:44:25 Pat Name: KEVIN VILLA Department: Room: Gender: M [employer]: : 1950 Requested By: MICHAEL PARSON Order Number: [id number] Reading MD: Measurements Intervals Sabael Rate: 89 P: 0 AL: 128 QRS: 46 QRSD: 88 T: -66 QT: 380 QTc: 463 Interpretive Statements SINUS RHYTHM ATRIAL PREMATURE COMPLEX(ES) LOW LIMB LEAD VOLTAGE QRS(T) CONTOUR ABNORMALITY CONSIDER ANTEROSEPTAL MYOCARDIAL DAMAGE ST & T ABNORMALITY, CONSIDER ANTERIOR ISCHEMIA OR LEFT VENTRICULAR STRAIN T ABNORMALITY IN INFEROLATERAL LEADS ABNORMAL ECG RI6.01 No previous ECG available for comparison
== END 2019-02-10 19:40 | disposition home or self-care (01) ==
LOC: ER 18:10
DX: S00.83XA Contusion of other part of head, initial encounter (principal); S50.01XA Contusion of right elbow, initial encounter; S60.221A Contusion of right hand, initial encounter; S80.01XA Contusion of right knee, initial encounter; D64.9 Anemia, unspecified; R79.1 Abnormal coagulation profile; E87.6 Hypokalemia; E83.42 Hypomagnesemia; M17.11 Unilateral primary osteoarthritis, right knee; W18.39XA Other fall on same level, initial encounter; Y93.89 Activity, other specified; Y92.511 Restaurant or cafe as the place of occurrence of the external cause; Y99.8 Other external cause status
CPT/HCPCS: 36415; 70450; 71045; 72125; 73080; 73130; 73564; 80048; 80076; 82550; 83690; 83735; 83880; 84443; 84484; 85025; 85379; 85610; 85730; 93005; 99285; J7120

== ENCOUNTER 2019-03-18 19:27 | Observation (INO) | payer OTHER ==
[~2019-03-18] VITALS: Ht 177.8 cm; Wt 66.7 kg
[2019-03-18] MEDS ORDERED: IV NORMAL SALINE 1,000ML 1,000 ML IV SCH (20:30)
[2019-03-18] MEDS ORDERED: ACETAMINOPHEN 500 MG TABLET PO ONE (20:30)
--- NOTE | 2019-03-18 20:40 | RAD ---
Examination: PORTABLE CHEST 1V History: Chest pain, fever Comparison/Correlation: 02/10/2019 portable chest x-ray exam Findings: Portable upright frontal view chest was obtained. Right internal jugular infusion port catheter is noted. Heart size and pulmonary vasculature are normal. No infiltrate or effusion. Bony structures are grossly unremarkable. Impression: No active disease. Electronically signed by: Jame Carl MD (03/18/2019 8:37 PM) [facility]
[2019-03-18] MEDS ORDERED: MORPHINE SULFATE 4 MG/ML DISP.SYRIN. IV ONE (20:45)
[2019-03-18 20:49] LABS: BASO % 1 % (0-3); EOS % 0 % (0-3); HEMOGLOBIN 9.9 g/dL (13.0-17.5); LYMPH # 0.3 x10^3/uL (1.0-4.8); LYMPH % 5 % (24-48); MEAN CORPUSCULAR HEMOGLOBIN 34 pg (25-35); MEAN CORPUSCULAR HGB CONC 34 g/dL (31-37); MEAN CORPUSCULAR VOLUME 98 fL (79-100); MONO # 0.5 x10^3/uL (0.0-1.1); MONO % 6 % (0-9); NEUT # 6.6 x10^3uL (1.8-7.7); NEUT % 89 % (31-73); PLATELET COUNT 382 x10^3/uL (140-400); RED BLOOD COUNT 2.96 x10^6/uL (4.30-5.70); RED CELL DISTRIBUTION WIDTH 15.6 % (11.5-14.5); WHITE BLOOD COUNT 7.5 x10^3/uL (4.0-11.0)
[2019-03-18 21:06] LABS: ALBUMIN 2.7 g/dL (3.4-5.0); ALBUMIN/GLOBULIN RATIO 0.8 (1.0-1.7); CALCIUM 8.4 mg/dL (8.5-10.1); CREATININE 0.9 mg/dL (0.7-1.3); GFR 83.9; POTASSIUM 3.6 mmol/L (3.5-5.1); TOTAL BILIRUBIN 0.3 mg/dL (0.2-1.0); TOTAL PROTEIN 6.2 g/dL (6.4-8.2)
[2019-03-18 21:20] LABS: INFLUENZA A PATIENT NEGATIVE (NEGATIVE); INFLUENZA B PATIENT NEGATIVE (NEGATIVE)
--- NOTE | 2019-03-18 21:24 | RAD ---
CT head without contrast dated 03/18/2019. Comparison made to 02/10/2019. CLINICAL INDICATION: Pain after fall. TECHNIQUE: Contiguous axial imaging the head was performed from skull base to vertex. No contrast administered. One or more of the following individualized dose reduction techniques were utilized for this examination: 1. Automated exposure control 2. Adjustment of the mA and/or kV according to patient size 3. Use of iterative reconstruction technique. FINDINGS: Ventricles and sulci are mildly prominent for age. No midline shift or mass effect. Brain parenchyma is of normal attenuation. No hemorrhage or extra-axial collection. Posterior fossa and brainstem unremarkable. Visualized paranasal sinuses are clear. There is opacification of the left mastoid air cells with destructive changes of the inferior portion of the mastoid temporal bone, stable from prior study. There is also partial desiccation of the right mastoid air cells. IMPRESSION: 1. No evidence of acute intracranial hemorrhage or mass. 2. Partial opacification of the bilateral mastoid air cells with postsurgical and destructive changes on the left, similar to prior study. Electronically signed by: Jonny Hendricks MD (03/18/2019 9:21 PM) [facility]
[2019-03-18] MEDS ORDERED: IV NORMAL SALINE 1,000ML 1,000 ML IV ONE (21:30)
[2019-03-18 23:27] LABS: BACTERIA,URINE 0 /HPF (0-FEW); BILIRUBIN,URINE NEG (NEG); CLARITY,URINE CLEAR; COLOR,URINE YELLOW; GLUCOSE,URINE NEG (NEG); HYALINE CASTS, URINE OCC /HPF; NITRITE,URINE NEG (NEG); RBC,URINE OCC /HPF (0-2); SQUAMOUS EPITHELIAL CELL,UR OCC /LPF; UROBILINOGEN,URINE 1 mg/dL (0.2 mg/dL)
[2019-03-18] MEDS ORDERED: IV NORMAL SALINE 50ML 50 ML ONE (23:46)
[2019-03-18] MEDS ORDERED: cefTRIAXone SODIUM 1 GM VIAL ONE (23:46)
--- NOTE | 2019-03-18 23:50 | PHYS DOC ---
Past History Past Medical History: A-Fib, Anxiety, Cancer, Depression, Hypertension, Other Additional Past Medical Histor: STENT PLACEMENT, PICC LINE Past Surgical History: Cancer Surgery Additional Past Surgical Histo: STENT PLACEMENT Smoking: Non-smoker Alcohol Use: None Drug Use: None Adult General Chief Complaint Chief Complaint: FEVER HPI HPI Patient is a 68-year-old male who presents with report of high fever at home. Patient's indicates that she took temperature and it was 104. She also indicates that patient has been falling quite a bit over the last few days with 3 falls in the last 2 days. She was also concerned because he hit the back of his head. She is not sure whether or not he lost consciousness. Patient does admit to pain all over and is on hospice for cancer. Patient's indicates that she has waived hospice to come to the emergency room to be evaluated and treated.[] Review of Systems Review of Systems Constitutional: Positive fever and chills [] Respiratory: Denies cough or shortness of breath [] Cardiovascular: No additional information not addressed in HPI [] GI: Denies abdominal pain, nausea, vomiting or diarrhea [] : Denies dysuria or hematuria [] Musculoskeletal: Complains of back pain [] Neurologic: Denies headache, focal weakness or sensory changes [] All other systems were reviewed and found to be within normal limits, except as documented in this note. Current Medications Current Medications Current Medications Medications (Trade) Dose Ordered Sig/Joaquin Start Time Stop Time Status Last Admin Dose Admin Acetaminophen (Tylenol) 1,000 mg 1X ONCE 03/18/19 20:30 03/18/19 20:31 DC 03/18/19 20:45 1,000 MG Ceftriaxone Sodium 1 gm/ Sodium Chloride 50 ml @ 100 mls/hr 1X ONCE 03/18/19 23:45 03/19/19 00:14 Fentanyl Citrate (Fentanyl 2ml Vial) 25 mcg PRN Q15MIN PRN 03/18/19 20:00 03/19/19 19:59 Morphine Sulfate (Morphine 4mg Syringe) 4 mg 1X ONCE 03/18/19 20:45 03/18/19 20:52 DC 03/18/19 20:45 4 MG Sodium Chloride 1,000 ml @ 1,000 mls/hr 1X ONCE 03/18/19 21:30 03/18/19 22:29 DC Allergies Allergies Allergies Coded Allergies Type Severity Reaction Last Updated Verified No Known Drug Allergies 05/04/16 No Physical Exam Physical Exam Constitutional: Cachectic, no acute distress, appears ill. [] HENT: Normocephalic, atraumatic, bilateral external ears normal, oropharynx dry, no oral exudates, nose normal. [] Eyes: PERRLA, EOMI, conjunctiva normal, no discharge. [] Neck: Normal range of motion, no tenderness, supple, no stridor. [] Cardiovascular: Regular rate and rhythm[] Lungs & Thorax: Bilateral breath sounds clear to auscultation [] Abdomen: Bowel sounds normal, soft, no tenderness. [] Skin: Warm, dry. [] Extremities: No tenderness, no cyanosis, no clubbing, ROM intact, no edema. [] Neurologic: Awake and alert, no focal deficits noted. [] Psychologic: Flattened affect with depressed mood. [] Current Patient Data Vital Signs Vital Signs Date Time Temp Pulse Resp B/P (MAP) Pulse Ox O2 Delivery O2 Flow Rate FiO2 03/18/19 19:27 101.1 83 14 96 Room Air Lab Results Laboratory Tests Test 03/18/19 20:26 03/18/19 22:58 White Blood Count 7.5 x10^3/uL (4.0-11.0) Red Blood Count 2.96 x10^6/uL (4.30-5.70) L Hemoglobin 9.9 g/dL (13.0-17.5) L Hematocrit 29.0 % (39.0-53.0) L Mean Corpuscular Volume 98 fL (79-100) Mean Corpuscular Hemoglobin 34 pg (25-35) Mean Corpuscular Hemoglobin Concent 34 g/dL (31-37) Red Cell Distribution Width 15.6 % (11.5-14.5) H Platelet Count 382 x10^3/uL (140-400) Neutrophils (%) (Auto) 89 % (31-73) H Lymphocytes (%) (Auto) 5 % (24-48) L Monocytes (%) (Auto) 6 % (0-9) Eosinophils (%) (Auto) 0 % (0-3) Basophils (%) (Auto) 1 % (0-3) Neutrophils # (Auto) 6.6 x10^3uL (1.8-7.7) Lymphocytes # (Auto) 0.3 x10^3/uL (1.0-4.8) L Monocytes # (Auto) 0.5 x10^3/uL (0.0-1.1) Eosinophils # (Auto) 0.0 x10^3/uL (0.0-0.7) Basophils # (Auto) 0.0 x10^3/uL (0.0-0.2) Sodium Level 137 mmol/L (136-145) Potassium Level 3.6 mmol/L (3.5-5.1) Chloride Level 100 mmol/L (98-107) Carbon Dioxide Level 29 mmol/L (21-32) Anion Gap 8 (6-14) Blood Urea Nitrogen 11 mg/dL (8-26) Creatinine 0.9 mg/dL (0.7-1.3) Estimated GFR (Cockcroft-Gault) 83.9 BUN/Creatinine Ratio 12 (6-20) Glucose Level 103 mg/dL (70-99) H Lactic Acid Level 1.5 mmol/L (0.4-2.0) Calcium Level 8.4 mg/dL (8.5-10.1) L Total Bilirubin 0.3 mg/dL (0.2-1.0) Aspartate Amino Transferase (AST) 22 U/L (15-37) Alanine Aminotransferase (ALT) 12 U/L (16-63) L Alkaline Phosphatase 72 U/L (46-116) Troponin I Quantitative < 0.017 ng/mL (0-0.055) Total Protein 6.2 g/dL (6.4-8.2) L Albumin 2.7 g/dL (3.4-5.0) L Albumin/Globulin Ratio 0.8 (1.0-1.7) L Influenza Type A (Rapid) Negative (NEGATIVE) Influenza Type B (Rapid) Negative (NEGATIVE) Urine Collection Type Unknown Urine Color Yellow Urine Clarity Clear Urine pH 7.5 Urine Specific Soso 1.015 Urine Protein Neg (NEG-TRACE) Urine Glucose (UA) Neg mg/dL (NEG) Urine Ketones (Stick) 15 mg/dL (NEG) Urine Blood Neg (NEG) Urine Nitrite Neg (NEG) Urine Bilirubin Neg (NEG) Urine Urobilinogen Dipstick 1 mg/dL (0.2 mg/dL) Urine Leukocyte Esterase Neg (NEG) Urine RBC Occ /HPF (0-2) Urine WBC 1-4 /HPF (0-4) Urine Squamous Epithelial Cells Occ /LPF Urine Bacteria 0 /HPF (0-FEW) Urine Hyaline Casts Occ /HPF Urine Mucus Mod /LPF EKG EKG [] Radiology/Procedures Radiology/Procedures [] Impressions: PROCEDURE: CT HEAD WO CONTRAST CT head without contrast dated 03/18/2019. Comparison made to 02/10/2019. CLINICAL INDICATION: Pain after fall. TECHNIQUE: Contiguous axial imaging the head was performed from skull base to vertex. No contrast administered. One or more of the following individualized dose reduction techniques were utilized for this examination: 1. Automated exposure control 2. Adjustment of the mA and/or kV according to patient size 3. Use of iterative reconstruction technique. FINDINGS: Ventricles and sulci are mildly prominent for age. No midline shift or mass effect. Brain parenchyma is of normal attenuation. No hemorrhage or extra-axial collection. Posterior fossa and brainstem unremarkable. Visualized paranasal sinuses are clear. There is opacification of the left mastoid air cells with destructive changes of the inferior portion of the mastoid temporal bone, stable from prior study. There is also partial desiccation of the right mastoid air cells. IMPRESSION: 1. No evidence of acute intracranial hemorrhage or mass. 2. Partial opacification of the bilateral mastoid air cells with postsurgical and destructive changes on the left, similar to prior study. Electronically signed by: Jonny Hendricks MD (03/18/2019 9:21 PM) [facility] [place] DICTATED AND SIGNED BY: JONNY HENDRICKS MD DATE: 03/18/192120 PROCEDURE: PORTABLE CHEST 1V Examination: PORTABLE CHEST 1V History: Chest pain, fever Comparison/Correlation: 02/10/2019 portable chest x-ray exam Findings: Portable upright frontal view chest was obtained. Right internal jugular infusion port catheter is noted. Heart size and pulmonary vasculature are normal. No infiltrate or effusion. Bony structures are grossly unremarkable. Impression: No active disease. Electronically signed by: Jame Carl MD (03/18/2019 8:37 PM) [facility] Course & Med Decision Making Course & Med Decision Making Pertinent Labs and Imaging studies reviewed. (See chart for details) [] Dragon Disclaimer Dragon Disclaimer This electronic medical record was generated, in whole or in part, using a voice recognition dictation system. Departure Departure: Impression: Primary Impression: Fever Additional Impressions: Multiple falls Dehydration Generalized weakness Disposition: 09 ADMITTED INPATIENT Admitting Physician: Adeline Strauss Condition: IMPROVED Referrals: JOE JOYCE DO (PCP) Problem Qualifiers Primary Impression: Fever Fever type: unspecified Qualified Codes: R50.9 - Fever, unspecified CLAUDIA MARTINEZ Jr., DO Mar 18, 2019 23:50
[2019-03-19] MEDS ORDERED: ACETAMINOPHEN 325 MG TABLET PO PRN
[2019-03-19] MEDS ORDERED: MORPHINE SULFATE 2 MG/ML DISP.SYRIN. IV PRN
[2019-03-19] MEDS ORDERED: ONDANSETRON PF 4 MG/2 ML VIAL. IV PRN
[2019-03-19 01:28] VITALS: BP 106/60
[2019-03-19 05:15] VITALS: BP 106/64
[2019-03-19] MEDS: IV NORMAL SALINE 1,000ML 1,000 ML IV SCH ×2 (05:26→15:18)
--- NOTE | 2019-03-19 06:25 | EKG ---
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
[2019-03-19] MEDS ORDERED: NON FORMULARY ITEM (Canagliflozin (Invokana) 300 MG) PO SCH (09:00)
[2019-03-19] MEDS: LISINOPRIL 2.5 MG TABLET PO SCH (09:00)
[2019-03-19] MEDS: NON FORMULARY ITEM (Potassium Gluconate 90 MG) PO SCH (09:00)
[2019-03-19] MEDS: METOPROLOL TART IMMED RELEASE 50 MG TABLET PO SCH ×2 (09:00→21:00)
[2019-03-19] MEDS: oxyCODONE/APAP 10/325 1 TAB TABLET PO SCH ×4 (09:25→21:32)
[2019-03-19] MEDS: predniSONE 10 MG TABLET PO SCH (09:25)
[2019-03-19] MEDS: DIGOXIN 125 MCG TABLET PO SCH (09:25)
[2019-03-19] MEDS: PREGABALIN 75 MG CAPSULE PO SCH ×2 (09:26→21:32)
[2019-03-19] MEDS: ASPIRIN 81 MG TAB.CHEW PO SCH (09:27)
[2019-03-19] MEDS: APIXABAN 5 MG TABLET. PO SCH ×2 (09:27→21:32)
[2019-03-19 11:12] VITALS: BP 112/72
[2019-03-19 15:16] VITALS: BP 98/61
[2019-03-19] MEDS ORDERED: VANCOMYCIN 1.5 GM in IV NORMAL SALINE 500ML 500 ML IV ONE (16:00)
--- NOTE | 2019-03-19 16:11 | HP ---
ADMIT DATE: 03/19/2019 HISTORY OF PRESENT ILLNESS: The patient is a 68-year-old male patient who came to the Emergency Room with a report of high fever at home. His indicated that she took his temperature and it was 104. She also indicated the patient has been falling quite a bit over the last few days. In fact, according to her, he fell about 4 times. She was also concerned because he hit the back of his head. She is not sure whether he has lost consciousness or not. The patient does admit to pain all over and he is actually in hospice for cancer. The patient's indicated that he has waived hospice to come to the Emergency Room to be evaluated and treated. He was apparently extensively investigated. His white cell count was 7.5. His chemistry was mostly unremarkable. Lactic acid was only 1.5. His chest x-ray showed that the patient has right internal jugular effusion Port-A-Cath noted. Heart size and pulmonary vasculature are normal. No infiltrate or effusion. Bony structures are grossly unremarkable. His CT scan of the head showed no evidence of acute intracranial hemorrhage or mass effect. He has partial opacification of bilateral mastoid air cells with post-surgical and destructive changes on the left, similar to prior study. The patient was admitted with fever and was started on IV ceftriaxone and continued on all his other medications after obtaining blood cultures as well as urine, although his urinalysis was essentially unremarkable. PAST MEDICAL HISTORY: Significant for atrial fibrillation, coronary artery disease, hypertension, myocardial infarction, and hyperlipidemia. He apparently has had coronary artery disease, status post PCI to left circumflex and right coronary artery with a bare-metal stent, stable. History of ischemic cardiomyopathy with subsequent normalization of left ventricular function, has mitral and aortic valve regurgitation, stable. Hypertension, mixed hyperlipidemia. He apparently has skin cancer on his left forearm and also left ear and was treated with chemotherapy at [facility]. FAMILY HISTORY: Unremarkable. SOCIAL HISTORY: He lives with his . He does not smoke but drinks alcohol, and has been at the time drinking 6-8 ounces of rum a night. ALLERGIES: He has no known drug allergies. MEDICATIONS: He is currently on following medications: He was on cephalexin 500 mg 3 times a day, apixaban 5 mg twice a day, digoxin 125 mcg once a day, simvastatin 20 mg at bedtime, metoprolol tartrate 50 mg twice a day, lisinopril 2.5 mg once a day, aspirin 81 mg once a day, oxycodone/APAP 10/325 four times a day, pregabalin 75 mcg once a day. He is on potassium gluconate 90 mg daily, prednisone 10 mg daily. PHYSICAL EXAMINATION: GENERAL: On arrival to the Emergency Room, the patient looked pale, cachectic, but no jaundice, cyanosis, or thyromegaly. No jugular venous distension. No limb edema. VITAL SIGNS: His heart rate was 73, blood pressure was 106/64, temperature was 100.5, respiratory rate was 20, and oxygen saturation was 96%. HEAD, EYES, EARS, NOSE, AND THROAT: Normocephalic, atraumatic. NECK: Supple, with no lymphadenopathy, no thyromegaly. No jugular venous distension, no audible bruits. HEART: Showed normal first and second heart sounds with no gallop or murmur. CHEST: Clear to auscultation. No crepitation or rhonchi. ABDOMEN: Scaphoid, soft, nontender. NEUROLOGIC: He is awake, alert. He has left-sided facial palsy, otherwise all other cranial nerves are intact. He moves all extremities without difficulty, has marked muscle wasting and weakness. He has multiple wounds on the dorsal aspect of the left forearm and on his left ear. LABORATORY DATA: His lab work on arrival showed a white cell count of 7500, hemoglobin 9.9, hematocrit 29, MCV 98, and platelet count of 382,000 with normal manual differential. His chemistry showed a serum sodium 137, potassium 3.6, chloride 100, bicarbonate 29, anion gap of 8, BUN 11, creatinine 0.9, estimated GFR was 84 mL per minute. His glucose was 103, calcium was 8.4. Lactic acid was 1.5. Total bilirubin, AST, ALT, alkaline phosphatase were normal. His total protein was 6.2, albumin was 2.7. ASSESSMENT AND PLAN: In summary, this is a 68-year-old, male patient who was on hospice for apparently skin cancer, who presented with fever up to 104 degree Fahrenheit and multiple falls. He revoked hospice and was admitted for further evaluation and treatment. His chest x-ray showed that right internal jugular infusion port catheter is noted. Heart size and pulmonary vasculature are normal. No infiltrate or effusion. Bony structures are grossly unremarkable. His CT scan of the head was unremarkable. He has no evidence of acute intracranial hemorrhage or mass, has partial opacification of the bilateral mastoid air cells with post-surgical and destructive changes on the left, similar to prior study. The patient has multiple possible signs of infection including multiple wounds. He also has a Port-A-Cath and might be line related, so I will change his IV antibiotic to vancomycin and we will decide on further management accordingly. I will also add Zosyn and obviously decide on further management according to the result of culture and sensitivity. TOM BARAHONA MD DR: DARYL/gricel JOB#: [id number] / [id number]
[2019-03-19] MEDS: PIPERACILLIN/TAZOBACTAM 3.375 GM in IV NORMAL SALINE 50ML 50 ML IV SCH ×2 (17:00→23:54)
[2019-03-19] MEDS: VANCOMYCIN PER PHARMACY MC PRN (17:18)
[2019-03-19 19:58] VITALS: BP 105/50
[2019-03-19] MEDS: SIMVASTATIN 20 MG TABLET PO SCH (21:32)
[2019-03-19 23:08] VITALS: BP 115/66
[2019-03-20] MEDS: oxyCODONE/APAP 10/325 1 TAB TABLET PO SCH ×7 (01:00→22:07)
[2019-03-20] MEDS: IV NORMAL SALINE 1,000ML 1,000 ML IV SCH (04:49)
[2019-03-20 05:05] VITALS: BP 130/73
[2019-03-20] MEDS: VANCOMYCIN 1 GM in IV NORMAL SALINE 250ML 250 ML IV SCH ×2 (05:31→18:52)
[2019-03-20 07:45] LABS: GFR 83.9
[2019-03-20 08:02] LABS: BASO % 0 % (0-3); EOS % 1 % (0-3); HEMATOCRIT 24.7 % (39.0-53.0); LYMPH # 0.8 x10^3/uL (1.0-4.8); LYMPH % 17 % (24-48); MEAN CORPUSCULAR HEMOGLOBIN 34 pg (25-35); MEAN CORPUSCULAR HGB CONC 34 g/dL (31-37); MEAN CORPUSCULAR VOLUME 99 fL (79-100); MONO # 0.4 x10^3/uL (0.0-1.1); MONO % 9 % (0-9); NEUT # 3.5 x10^3uL (1.8-7.7); NEUT % 74 % (31-73); PLATELET COUNT 286 x10^3/uL (140-400); RED BLOOD COUNT 2.51 x10^6/uL (4.30-5.70); RED CELL DISTRIBUTION WIDTH 14.9 % (11.5-14.5); WHITE BLOOD COUNT 4.8 x10^3/uL (4.0-11.0)
[2019-03-20 08:06] LABS: HEMOGLOBIN 8.4 g/dL (13.0-17.5)
[2019-03-20 08:25] LABS: ALBUMIN 2.1 g/dL (3.4-5.0); ALBUMIN/GLOBULIN RATIO 0.6 (1.0-1.7); CALCIUM 8.3 mg/dL (8.5-10.1); CREATININE 0.9 mg/dL (0.7-1.3); TOTAL BILIRUBIN 0.3 mg/dL (0.2-1.0); TOTAL PROTEIN 5.8 g/dL (6.4-8.2)
[2019-03-20] MEDS: PIPERACILLIN/TAZOBACTAM 3.375 GM in IV NORMAL SALINE 50ML 50 ML IV SCH ×3 (08:39→23:41)
[2019-03-20] MEDS: NON FORMULARY ITEM (Potassium Gluconate 90 MG) PO SCH (09:00)
[2019-03-20] MEDS: POTASSIUM CHLORIDE 20 MEQ PACKET. PO SCH ×2 (09:28→14:12)
[2019-03-20] MEDS: LISINOPRIL 2.5 MG TABLET PO SCH (09:30)
[2019-03-20] MEDS: predniSONE 10 MG TABLET PO SCH (09:30)
[2019-03-20] MEDS: METOPROLOL TART IMMED RELEASE 50 MG TABLET PO SCH ×2 (09:32→20:29)
[2019-03-20] MEDS: PREGABALIN 75 MG CAPSULE PO SCH ×2 (09:34→20:28)
[2019-03-20] MEDS: DIGOXIN 125 MCG TABLET PO SCH (09:34)
[2019-03-20] MEDS: ASPIRIN 81 MG TAB.CHEW PO SCH (09:34)
[2019-03-20] MEDS: APIXABAN 5 MG TABLET. PO SCH ×2 (09:35→20:28)
[2019-03-20 10:06] VITALS: BP 103/51
[2019-03-20 15:03] VITALS: BP 101/56
[2019-03-20] MEDS: NEOMY/BACITR/POLYMYXIN OINT PACKET. TP SCH ×2 (17:30→20:29)
[2019-03-20 19:00] VITALS: BP 92/50
[2019-03-20 19:39] LABS: CALCIUM 8.1 mg/dL (8.5-10.1); CREATININE 0.9 mg/dL (0.7-1.3); GFR 83.9; POTASSIUM 4.6 mmol/L (3.5-5.1)
[2019-03-20] MEDS: LACTOBACILLUS RHAMNOSUS GG 1 CAPSULE. PO SCH (20:28)
[2019-03-20] MEDS: SIMVASTATIN 20 MG TABLET PO SCH (20:28)
--- NOTE | 2019-03-20 21:43 | PN ---
DATE: 03/20/2019 SUBJECTIVE: The patient is resting, slightly propped up in bed, sleeping comfortably. He is somewhat confused; however, he is afebrile, hemodynamically stable. His potassium was low at 3 mEq. PHYSICAL EXAMINATION: GENERAL: When I examined him, however, he looked pale, but no jaundice, cyanosis, or thyromegaly. No jugular venous distension. No lower limb edema. VITAL SIGNS: His heart rate was 84, blood pressure was 103/51, temperature was 98.6, respiratory rate 20, and oxygen saturation was 99%. HEAD, EYES, EARS, NOSE AND THROAT: Showed normocephalic, atraumatic. NECK: Supple. HEART: Showed normal first and second heart sounds with no gallop or murmur. CHEST: Clear to auscultation. No crepitation or rhonchi. ABDOMEN: Scaphoid, soft, nontender. NEUROLOGIC: He has left-sided facial nerve paralysis. All other cranial nerves are intact. He moves extremities without difficulty. Has wounds in his left ear and the dorsal aspect of the left forearm per squamous cell carcinoma, is very advanced. His intake was 1050, no output was recorded. LABORATORY DATA: His lab work this morning showed a serum sodium 139, potassium 3, chloride 103, bicarbonate 28, anion gap of 8, BUN 11, creatinine 0.9, estimated GFR was 84 mL per minute. His glucose was 88, calcium was 8.3. Total bilirubin, AST, ALT, alkaline phosphatase were normal. Total protein was 5.8, albumin was 2.1. White cell count was 4800, hemoglobin 8.4, hematocrit 24.7, MCV 99 and platelet count 206,000. ASSESSMENT: Fever with no obvious source of infection. His temperature was up to 104 Fahrenheit at home. His chest x-ray was unremarkable and showed no evidence of infiltrate or effusion. His urinalysis was also unremarkable and was negative for bacteria. No wbc's, negative for leukocyte esterase and nitrite. Potential source of infection is Port-A-Cath, so I did start him on IV vancomycin as well as Zosyn. We pancultured him and we will continue with IV vancomycin and Zosyn and we will replenish his potassium. Continue with all his pain medication. We did consult the Wound Care team and we will decide on further management accordingly. TOM BARAHONA MD DR: Philomena JOB#: [id number] / [id number]
[2019-03-20 23:00] VITALS: BP 106/64
[2019-03-21 05:00] VITALS: BP 111/69
[2019-03-21 05:12] LABS: HEMATOCRIT 22.3 % (39.0-53.0); HEMOGLOBIN 7.6 g/dL (13.0-17.5); RED BLOOD COUNT 2.25 x10^6/uL (4.30-5.70); RED CELL DISTRIBUTION WIDTH 15.5 % (11.5-14.5); WHITE BLOOD COUNT 4.3 x10^3/uL (4.0-11.0)
[2019-03-21 05:17] LABS: CALCIUM 7.8 mg/dL (8.5-10.1); CREATININE 0.8 mg/dL (0.7-1.3); GFR 96.1; POTASSIUM 3.7 mmol/L (3.5-5.1)
[2019-03-21 05:22] LABS: VANC TR 18.8 mcg/mL (10.0-20.0)
[2019-03-21] MEDS: oxyCODONE/APAP 10/325 1 TAB TABLET PO SCH ×3 (05:42→12:38)
[2019-03-21] MEDS: VANCOMYCIN 1 GM in IV NORMAL SALINE 250ML 250 ML IV SCH (05:46)
[2019-03-21] MEDS: VANCOMYCIN PER PHARMACY MC PRN (05:50)
[2019-03-21] MEDS: ASPIRIN 81 MG TAB.CHEW PO SCH (09:09)
[2019-03-21] MEDS: PREGABALIN 75 MG CAPSULE PO SCH (09:09)
[2019-03-21] MEDS: LACTOBACILLUS RHAMNOSUS GG 1 CAPSULE. PO SCH (09:10)
[2019-03-21] MEDS: METOPROLOL TART IMMED RELEASE 50 MG TABLET PO SCH (09:10)
[2019-03-21] MEDS: APIXABAN 5 MG TABLET. PO SCH (09:10)
[2019-03-21] MEDS: DIGOXIN 125 MCG TABLET PO SCH (09:10)
[2019-03-21] MEDS: predniSONE 10 MG TABLET PO SCH (09:10)
[2019-03-21] MEDS: LISINOPRIL 2.5 MG TABLET PO SCH (09:10)
[2019-03-21] MEDS: NEOMY/BACITR/POLYMYXIN OINT PACKET. TP SCH (09:11)
[2019-03-21] MEDS: PIPERACILLIN/TAZOBACTAM 3.375 GM in IV NORMAL SALINE 50ML 50 ML IV SCH (09:13)
[2019-03-21] MEDS: NON FORMULARY ITEM (Potassium Gluconate 90 MG) PO SCH (09:20)
[2019-03-21 11:28] VITALS: BP 90/50
[2019-03-21 16:22] VITALS: BP 92/49
--- NOTE | 2019-03-22 00:26 | DS ---
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 He was actually on hospice, however, he apparently developed fever and his revoked the hospice and was seen in the Emergency Room, he was extensively investigated. We do not have any focus of infection; however, he has Port-A-Cath and therefore, I started him on IV antibiotic after obtaining the appropriate samples for culture and sensitivity. Apparently, he and his are not happy with the current hospice care and therefore we consulted [facility], who basically will be taking over his care and the family decided to go home with hospice. We will continue with oral Keflex for now and asked the to call in 2 days' time, so hopefully by that time we have the result of culture and sensitivity. OBJECTIVE: GENERAL: When I saw him this afternoon, he looked well and was clearly in no apparent respiratory distress. No pallor, jaundice, cyanosis or thyromegaly. No jugular venous distention. No limb edema. VITAL SIGNS: Her heart rate was 60, blood pressure was 90/50, temperature was 98, respiratory rate 20, and oxygen saturation was 98%. HEAD, EYES, EARS, NOSE AND THROAT: Showed normocephalic, atraumatic. NECK: Supple. HEART: Showed normal first and second heart sounds with no gallop or murmur. CHEST: Clear to auscultation. No crepitation, rhonchi. ABDOMEN: Scaphoid, soft, nontender. No guarding or rigidity. No organomegaly. All hernial orifice intact. Bowel sounds normal. NEUROLOGIC: He was awake, alert, responding appropriately. All cranial nerves intact. EXTREMITIES: Normal. LABORATORY DATA: This morning showed a white cell count 4300, hemoglobin 7.6, hematocrit 22, MCV 99, platelet count 278,000. Serum sodium was 139, potassium 3.7, chloride 105, bicarbonate 28, anion gap of 6, BUN 10, creatinine 0.8, estimated GFR was 96 mL per minute. Glucose was 88 and calcium was 7.8. DISCHARGE MEDICATIONS: He was discharged home to continue apixaban 5 mg twice a day, aspirin 81 mg once a day, Keflex 500 mg 3 times a day, digoxin 125 mcg once a day, lisinopril 2.5 mg once a day, metoprolol tartrate 50 mg twice a day, oxycodone/APAP 10/325 one tablet 4 times a day, potassium gluconate 90 mg daily, prednisone 10 mg once a day, pregabalin for Lyrica 75 mg twice a day and simvastatin 20 mg at bedtime. 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 He is known to have atrial fibrillation, coronary artery disease, ____. He underwent PCI with stent deployment to left circumflex and right coronary artery with bare mental stent, history of ischemic cardiomyopathy with subsequent normalization of his left ventricular function, ____, mixed hyperlipidemia. He is on hospice and now we switched to [facility] hospice. TOM BARAHONA MD DR: DARYL/gricel JOB#: [id number] / [id number]
== END 2019-03-21 17:00 | disposition hospice, home (50) ==
LOC: ER 19:27 → 1 SOUTH 03-19 → INTOOBSV 03-19
PROVIDERS: ADMIT Internal Medicine; ATTEND Internal Medicine
DX: R50.9 Fever, unspecified (principal); E43 Unspecified severe protein-calorie malnutrition; E86.0 Dehydration; I10 Essential (primary) hypertension; R53.1 Weakness; F32.9 Major depressive disorder, single episode, unspecified; F41.9 Anxiety disorder, unspecified; G51.0 Bell's palsy; Z51.5 Encounter for palliative care; C79.89 Secondary malignant neoplasm of other specified sites; E78.2 Mixed hyperlipidemia; I48.91 Unspecified atrial fibrillation; I25.10 Atherosclerotic heart disease of native coronary artery without angina pectoris; C76.42 Malignant neoplasm of left upper limb; I25.5 Ischemic cardiomyopathy; I35.1 Nonrheumatic aortic (valve) insufficiency; I25.2 Old myocardial infarction; Z92.21 Personal history of antineoplastic chemotherapy; Z85.828 Personal history of other malignant neoplasm of skin; Z95.5 Presence of coronary angioplasty implant and graft; Z68.21 Body mass index [BMI] 21.0-21.9, adult
CPT/HCPCS: 36415; 70450; 71045; 80048; 80053; 80202; 81001; 83605; 84484; 85025; 85027; 87040; 87804; 93005; 96361; 96365; 96366; 96367; 96368; 96375; 96376; 99284; G0378; J0696; J2270; J2543; J3370; J7040; J7050; J7512; G0379; 99285-25; J7030

== ENCOUNTER 2019-04-06 21:26 | Emergency (ER) | payer OTHER ==
[~2019-04-06] VITALS: Ht 177.8 cm; Wt 61.7 kg
[~2019-04-06 21:26] MED LIST changes: +SIMV20TA18 PO; -SIMV20TA3 PO
--- NOTE | 2019-04-06 21:35 | PHYS DOC ---
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 p/w cc of diarrhea every hour on the hour for the last three days. although on arrival to er really did not make any measurable stool while here in the er for three hours. on hospice as of 03/21 TAM called me FROM HOSPICE aparently OFFERED IMODIUM , GOT FRUSTRATED AND SAID GOING TO HOSPITAL SHE WILL BE ABLE TO FOLLOW UP WITH THEM TOMORROW UPON D/C HOME Review of Systems Review of Systems Constitutional: Denies fever or chills [] Eyes: Denies change in visual acuity, redness, or eye pain [] HENT: Denies nasal congestion or sore throat [] Respiratory: Denies cough or shortness of breath [] no blood in stool Musculoskeletal: Denies back pain or joint pain [] Integument: Denies rash or skin lesions [] Neurologic: Denies headache, focal weakness or sensory changes [] Endocrine: Denies polyuria or polydipsia [] All other systems were reviewed and found to be within normal limits, except as documented in this note. Allergies Allergies Allergies Coded Allergies Type Severity Reaction Last Updated Verified No Known Drug Allergies 05/04/16 No Physical Exam Physical Exam Constitutional: Well developed,ILL APPEARING AT [facility] CHRONICALLY ILL AND CACHECTIC HENT: Normocephalic, atraumatic, abnormal but baseline neck and facial anatomy dry mucus membranes Eyes: PERRLA, EOMI, conjunctiva normal, no discharge. [] Neck: Normal range of motion, no tenderness, supple, no stridor. [] Cardiovascular:Heart rate regular rhythm, no murmur [] Lungs & Thorax: Bilateral breath sounds clear to auscultation [] Abdomen: Bowel sounds normal, soft, no tenderness, no masses, no pulsatile masses. [] Skin: Warm, dry, no erythema, no rash. 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 [] Extremities: No tenderness, no cyanosis, no clubbing, ROM intact, no edema. [] Neurologic: Alert and oriented X 3, normal motor function, normal sensory function, no focal deficits noted. [] Psychologic: Affect normal, judgement normal, mood normal. [] Current Patient Data Vital Signs None Temperature (Fahrenheit): * 98.0 degrees F (97.6-99.5) Patient Temperature * 98.0 degrees F (97.5-99.5) Temperature Source * Oral Blood Pressure Systolic * 118 mm Hg (100-140) Blood Pressure Diastolic * 57 mm Hg (60-100) L Blood Pressure Mean * 77 mm Hg Blood Pressure Location * Left Arm Blood Pressure Source * Automatic Cuff Pulse Rate * 90 beats per minute (60-90) Pulse Assessment Method * Monitor Respiratory Rate * 20 breaths per minute (12-24) Oxygen Delivery Method * Room Air Bedside Pulse Oximetry * 100 % Treatment Prior to Arrival * No Complaint of Pain EKG EKG [] Radiology/Procedures Radiology/Procedures [] Course & Med Decision Making Course & Med Decision Making Pertinent Labs and Imaging studies reviewed. (See chart for details) []60-year-old male with a history of cancer who is on hospice coming in with diarrhea for the last 3 days he has been exposed antibiotics in the last 1 month as well as inpatient admissions. C. difficile is definitely on the differential abdomen is nontender white count normal patient really did not have any measurable stool in the emergency room I asked him to follow up with hospice to arrange for stool culture as well as symptomatic treatment I think a lot of the reassuring vital signs and lab work is okay for discharge home with his I talked to them in detail and at length about this Dragon Disclaimer Dragon Disclaimer This electronic medical record was generated, in whole or in part, using a voice recognition dictation system. Departure Departure: Impression: Primary Impression: Diarrhea Disposition: 01 HOME, SELF-CARE Condition: STABLE Referrals: JOE JOYCE DO (PCP) ANDREW CARDOZA MD Apr 06, 2019 21:35
[2019-04-06] MEDS ORDERED: IV NORMAL SALINE 1,000ML 1,000 ML IV ONE (22:15)
[2019-04-06] MEDS ORDERED: MORPHINE SULFATE 10 MG/ML SYRINGE. ONE (22:21)
[2019-04-06] MEDS ORDERED: MORPHINE SULFATE 4 MG/ML DISP.SYRIN. IV ONE (22:30)
[2019-04-06 22:57] LABS: BASO % 0 % (0-3); EOS # 0.1 x10^3/uL (0.0-0.7); EOS % 1 % (0-3); HEMATOCRIT 22.1 % (39.0-53.0); HEMOGLOBIN 7.7 g/dL (13.0-17.5); LYMPH # 0.7 x10^3/uL (1.0-4.8); LYMPH % 12 % (24-48); MEAN CORPUSCULAR HEMOGLOBIN 35 pg (25-35); MEAN CORPUSCULAR HGB CONC 35 g/dL (31-37); MEAN CORPUSCULAR VOLUME 99 fL (79-100); MONO # 0.4 x10^3/uL (0.0-1.1); MONO % 6 % (0-9); NEUT # 4.6 x10^3uL (1.8-7.7); NEUT % 80 % (31-73); PLATELET COUNT 295 x10^3/uL (140-400); RED BLOOD COUNT 2.22 x10^6/uL (4.30-5.70); RED CELL DISTRIBUTION WIDTH 14.6 % (11.5-14.5); WHITE BLOOD COUNT 5.8 x10^3/uL (4.0-11.0)
[2019-04-06 23:08] VITALS: BP 113/59
[2019-04-06 23:09] LABS: ALBUMIN 2.2 g/dL (3.4-5.0); ALBUMIN/GLOBULIN RATIO 0.6 (1.0-1.7); CALCIUM 8.3 mg/dL (8.5-10.1); CREATININE 0.9 mg/dL (0.7-1.3); GFR 83.9; POTASSIUM 3.3 mmol/L (3.5-5.1); TOTAL BILIRUBIN 0.4 mg/dL (0.2-1.0); TOTAL PROTEIN 5.6 g/dL (6.4-8.2)
[2019-04-07] MEDS ORDERED: POTASSIUM CITRATE 10 MEQ TABLET.ER PO STA (00:01)
[2019-04-07] MEDS ORDERED: POTASSIUM CHLORIDE 20 MEQ TABLET.ER. PO ONE (00:15)
[2019-04-12] MEDS ORDERED: POLY17PO5 PO (10:51)
== END 2019-04-07 00:38 | disposition home or self-care (01) ==
LOC: ER 21:26
DX: R19.7 Diarrhea, unspecified (principal); I48.91 Unspecified atrial fibrillation; I10 Essential (primary) hypertension; Z85.89 Personal history of malignant neoplasm of other organs and systems
CPT/HCPCS: 99285; J2270; 36415; 80053; 85025; 96361; 96374; J7030

== ENCOUNTER 2019-04-08 13:51 | Inpatient (IN) | payer OTHER ==
[~2019-04-08] VITALS: Ht 177.8 cm; Wt 69.1 kg
[~2019-04-08 13:51] MED LIST changes: -SIMV20TA18 PO; +SIMV20TA3 PO
[2019-04-08] MEDS ORDERED: IV NORMAL SALINE 500ML 500 ML IV ONE (14:45)
--- NOTE | 2019-04-08 14:48 | PHYS DOC ---
Past History Past Medical History: A-Fib, Anxiety, Cancer, Depression, Hypertension, Other Additional Past Medical Histor: STENT PLACEMENT, PICC LINE Past Surgical History: Cancer Surgery, Other Additional Past Surgical Histo: STENT PLACEMENT Smoking: Non-smoker Alcohol Use: None Drug Use: None Adult General Chief Complaint Chief Complaint: DIARRHEA HPI HPI Patient is a 68-year-old male presents complaining of rectal bleeding. For the past 4 days he has had diarrhea. Rectal bleeding was noted today. Bright red blood per rectum. Patient feels weak. He was seen 2 days ago diagnosed with hypokalemia and dehydration. He was given IV fluids and potassium while in the emergency department. Diarrhea has continued. He has not traveled outside the country. No nausea or vomiting. Pain when trying to have a bowel movement. Patient is on our request for history of atrial fibrillation. Patient also has a history of skin cancer. He is on hospice care.[] Review of Systems Review of Systems Constitutional: Denies fever or chills [] Eyes: Denies change in visual acuity, redness, or eye pain [] HENT: Denies nasal congestion or sore throat [] Respiratory: Denies cough or shortness of breath [] Cardiovascular: No chest pain or palpitations[] GI: See history of present illness[] : Denies dysuria or hematuria [] Musculoskeletal: Denies back pain or joint pain [] Integument: Denies rash or skin lesions [] Neurologic: Denies headache, focal weakness or sensory changes [] Endocrine: Denies polyuria or polydipsia [] All other systems were reviewed and found to be within normal limits, except as documented in this note. Allergies Allergies Allergies Coded Allergies Type Severity Reaction Last Updated Verified No Known Drug Allergies 05/04/16 No Physical Exam Physical Exam Constitutional: Well developed, well nourished, no acute distress, non-toxic appearance. [] HENT: Normocephalic, bandage over L ear region, not removed, oropharynx moist, no oral exudates, nose normal. [] Eyes: PERRLA, EOMI, conjunctiva normal, no discharge. [] Neck: Normal range of motion, no tenderness, supple, no stridor. [] Cardiovascular:Heart rate regular rhythm, no murmur [] Lungs & Thorax: Bilateral breath sounds clear to auscultation [] Abdomen: Bowel sounds normal, soft, no tenderness, no masses, no pulsatile ma sses. Rectal exam, patient had brown stool in his adult undergarment. No fissures, no hemorrhoids were noted. Stool was obtained and sent to the lab[] Skin: Warm, dry, no erythema, no rash. bandage over L dorsal wrist, not removed. Pale in appearance [] Back: No tenderness, no CVA tenderness. [] Extremities: No tenderness, no cyanosis, no clubbing, ROM intact, no edema. [] Neurologic: Alert and oriented X 3, normal motor function, normal sensory function, no focal deficits noted. [] Psychologic: Affect normal, judgement normal, mood normal. [] Current Patient Data Vital Signs Vital Signs Date Time Temp Pulse Resp B/P (MAP) Pulse Ox O2 Delivery O2 Flow Rate FiO2 04/08/19 14:05 98.6 84 24 99 Room Air EKG EKG [] Radiology/Procedures Radiology/Procedures PROCEDURE: ABDOMEN SUPINE & UPRIGHT Exam: Abdomen 2 views INDICATION: Severe diarrhea TECHNIQUE: Upright and supine views of the abdomen Comparisons: None FINDINGS: Air and stool are seen throughout the colon to level of the rectum in a nonobstructive bowel gas pattern. No free air. No suspicious masses or calcifications. Visualized osseous structures are unremarkable. IMPRESSION: Nonobstructive bowel gas pattern. Moderate stool burden in the colon.[] Course & Med Decision Making Course & Med Decision Making Pertinent Labs and Imaging studies reviewed. (See chart for details) ED course: Patient arrived, was placed in bed, and tolerated exam well. Orthostatic vital signs were performed. He was given IV fluids. Rectal exam was performed as noted above. Encounter what felt like stool in the vault. Some of this was manually digitally removed. But there was significantly more beyond the level reachable. He was transported to and from radiology without any complications. Findings were discussed with patient and family. He was adamant that there was something wrong. Attempted to convince him that the stool pertinent is what is ultimately causing the diarrhea and liquid stool transiting around. Consultation was ultimately made with the hospitalist service who graciously accepted him. He was admitted in improved condition. Medical decision making: Patient with diarrhea most likely due to large pertinent of stool within the colon is noted on the x-ray. Liquid stool going around the more solid stool, especially in light of morphine that he has been taking for pain. His hemoglobin is stable compared with 2 days ago. His electrolytes appear better than when he was evaluated 2 days ago for the diarrhea. Patient is being admitted for serial blood count, enema treatment to help reduce the stool burden and hopefully allow more solid stool to pass. There is no evidence of obstruction or perforation.[] Dragon Disclaimer Dragon Disclaimer This electronic medical record was generated, in whole or in part, using a voice recognition dictation system. Departure Departure: Impression: Primary Impression: Diarrhea Additional Impressions: Fecal impaction Parotid tumor Squamous cell skin cancer Rectal bleeding Disposition: ADMITTED INPATIENT Admitting Physician: Charles Ho Condition: IMPROVED Referrals: JOE JOYCE DO (PCP) Problem Qualifiers Primary Impression: Diarrhea Diarrhea type: unspecified type Qualified Codes: R19.7 - Diarrhea, unspecified DEDE RENNER DO Apr 08, 2019 14:48
[2019-04-08 15:08] LABS: FECAL OB PT POSITIVE (NEG)
[2019-04-08 15:56] LABS: BASO % 1 % (0-3); EOS # 0.1 x10^3/uL (0.0-0.7); EOS % 2 % (0-3); HEMATOCRIT 23.1 % (39.0-53.0); HEMOGLOBIN 7.7 g/dL (13.0-17.5); LYMPH # 0.6 x10^3/uL (1.0-4.8); LYMPH % 12 % (24-48); MEAN CORPUSCULAR HEMOGLOBIN 34 pg (25-35); MEAN CORPUSCULAR HGB CONC 34 g/dL (31-37); MEAN CORPUSCULAR VOLUME 101 fL (79-100); MONO # 0.4 x10^3/uL (0.0-1.1); MONO % 8 % (0-9); NEUT # 3.8 x10^3uL (1.8-7.7); NEUT % 77 % (31-73); PLATELET COUNT 340 x10^3/uL (140-400); RED BLOOD COUNT 2.29 x10^6/uL (4.30-5.70); RED CELL DISTRIBUTION WIDTH 14.9 % (11.5-14.5)
[2019-04-08 16:15] LABS: BACTERIA,URINE 0 /HPF (0-FEW); BILIRUBIN,URINE NEG (NEG); CLARITY,URINE CLEAR; COLOR,URINE YELLOW; GLUCOSE,URINE NEG (NEG); HYALINE CASTS, URINE OCC /HPF; NITRITE,URINE NEG (NEG); RBC,URINE 0 /HPF (0-2); SQUAMOUS EPITHELIAL CELL,UR OCC /LPF; UROBILINOGEN,URINE 0.2 mg/dL (0.2 mg/dL); WBC,URINE RARE /HPF (0-4)
--- NOTE | 2019-04-08 16:29 | RAD ---
Exam: Abdomen 2 views INDICATION: Severe diarrhea TECHNIQUE: Upright and supine views of the abdomen Comparisons: None FINDINGS: Air and stool are seen throughout the colon to level of the rectum in a nonobstructive bowel gas pattern. No free air. No suspicious masses or calcifications. Visualized osseous structures are unremarkable. IMPRESSION: Nonobstructive bowel gas pattern. Moderate stool burden in the colon. Electronically signed by: Michi Lopez MD (04/08/2019 4:26 PM) [facility]
[2019-04-08 16:47] LABS: ALBUMIN 2.3 g/dL (3.4-5.0); ALBUMIN/GLOBULIN RATIO 0.7 (1.0-1.7); CALCIUM 8.4 mg/dL (8.5-10.1); CREATININE 0.8 mg/dL (0.7-1.3); GFR 96.1; POTASSIUM 3.8 mmol/L (3.5-5.1); TOTAL BILIRUBIN 0.2 mg/dL (0.2-1.0); TOTAL PROTEIN 5.8 g/dL (6.4-8.2)
[2019-04-08] MEDS ORDERED: ONDANSETRON PF 4 MG/2 ML VIAL. IV PRN (17:30)
[2019-04-08] MEDS ORDERED: ACETAMINOPHEN 325 MG TABLET PO PRN (17:30)
[2019-04-08 19:24] VITALS: BP 133/77
--- NOTE | 2019-04-08 20:06 | EKG ---
[address] [address] Test Date: 2019-04-08 Test Time: 20:00:07 Pat Name: KEVIN VILLA Department: Room: 109 A Gender: M Library Associate: : 1950 Requested By: TED PETERSON Order Number: [id number] Reading MD: Patricio Wagoner MD Measurements Intervals [place] Rate: 87 P: 90 [place]: 140 QRS: 14 QRSD: 80 T: 31 QT: 356 QTc: 429 Interpretive Statements SINUS RHYTHM ATRIAL PREMATURE COMPLEX(ES) LOW VOLTAGE T ABNORMALITY IN ANTERIOR LEADS Electronically Signed On 04-18-2019 9:49:01 CDT by Patricio Wagoner MD
[2019-04-08] MEDS ORDERED: APIXABAN 5 MG TABLET. PO SCH (21:00)
[2019-04-08] MEDS: SIMVASTATIN 20 MG TABLET PO SCH (21:02)
[2019-04-08] MEDS: METOPROLOL TART IMMED RELEASE 50 MG TABLET PO SCH (21:02)
[2019-04-08] MEDS: PREGABALIN 75 MG CAPSULE PO SCH (21:06)
[2019-04-08] MEDS: oxyCODONE/APAP 10/325 1 TAB TABLET PO SCH (21:06)
[2019-04-08] MEDS: ZOLPIDEM 5 MG TABLET. PO PRN (21:43)
[2019-04-09] VITALS (9 sets, daily range): BP systolic 108–131; BP diastolic 63–81
[2019-04-09 07:05] LABS: BASO % 1 % (0-3); EOS # 0.2 x10^3/uL (0.0-0.7); EOS % 3 % (0-3); HEMATOCRIT 22.9 % (39.0-53.0); HEMOGLOBIN 7.8 g/dL (13.0-17.5); LYMPH # 0.9 x10^3/uL (1.0-4.8); LYMPH % 20 % (24-48); MEAN CORPUSCULAR HEMOGLOBIN 34 pg (25-35); MEAN CORPUSCULAR HGB CONC 34 g/dL (31-37); MEAN CORPUSCULAR VOLUME 100 fL (79-100); MONO # 0.5 x10^3/uL (0.0-1.1); MONO % 11 % (0-9); NEUT # 3.1 x10^3uL (1.8-7.7); NEUT % 66 % (31-73); PLATELET COUNT 338 x10^3/uL (140-400); RED BLOOD COUNT 2.28 x10^6/uL (4.30-5.70); WHITE BLOOD COUNT 4.7 x10^3/uL (4.0-11.0)
[2019-04-09 07:14] LABS: CALCIUM 8.3 mg/dL (8.5-10.1); CREATININE 0.8 mg/dL (0.7-1.3); GFR 96.1; POTASSIUM 3.7 mmol/L (3.5-5.1)
[2019-04-09] MEDS ORDERED: LISINOPRIL 2.5 MG TABLET PO SCH (09:00)
[2019-04-09] MEDS ORDERED: IOHEXOL 300 MG/ML 75 ML VIAL. IV ONE (09:45)
[2019-04-09] MEDS ORDERED: IOHEXOL 240 MG/ML 50ML VIAL. PO ONE (09:45)
[2019-04-09] MEDS: DIGOXIN 125 MCG TABLET PO SCH (10:20)
[2019-04-09] MEDS: PREGABALIN 75 MG CAPSULE PO SCH ×2 (10:20→21:30)
[2019-04-09] MEDS: predniSONE 10 MG TABLET PO SCH (10:20)
[2019-04-09] MEDS: METOPROLOL TART IMMED RELEASE 50 MG TABLET PO SCH ×2 (10:21→21:31)
[2019-04-09] MEDS: oxyCODONE/APAP 10/325 1 TAB TABLET PO SCH ×4 (10:21→21:30)
--- NOTE | 2019-04-09 12:42 | RAD ---
PQRS Compliance statement: One or more of the following individualized dose reduction techniques were utilized for this examination: 1. Automated exposure control. 2. Adjustment of the mA and/or kV according to patient size. 3. Use of iterative reconstruction technique. Indication:GI bleed. Constipation. Abdominal pain. TECHNIQUE: CT chest, abdomen and pelvis with IV contrast with multiplanar reformats. COMPARISON: None FINDINGS: Heart is normal in size. No pericardial effusion. Small bilateral pleural effusions. No enlarged axillary, mediastinal or hilar adenopathy. Central airways are patent. Interlobular septal thickening is seen in the bilateral lung bases likely secondary to mild interstitial pulmonary edema. I lateral centrilobular nodules are seen in the lower lobes right chest wall Chemo-Port is seen with its tip in SVC. 3.0 x 2.4 cm simple cyst in the central segment 4A. Another 2 small to characterize low attenuating lesion most likely simple cyst in segment 2 of the liver. Otherwise, liver, spleen, bladder, pancreas, adrenals and kidneys within normal limits. No enlarged retroperitoneal or pelvic adenopathy. Large amount of colonic stool burden is seen. There is circumferential rectal wall thickening with perirectal inflammatory changes. No pneumoperitoneum. Urinary bladder demonstrates no radiopaque stones. The prostate and seminal vesicles show no large mass. No suspicious bony lesion. IMPRESSION: 1. Small bilateral pleural effusions, nonspecific. 2. Bibasilar centrilobular nodules likely aspiration or infection. 3. Large chronic burden with circumferential rectal wall thickening and perirectal inflammatory changes suggests stercoral colitis. Rectal malignancy not ruled out. Nonemergent colonoscopy recommended. Electronically signed by: Sterling Miguel DO (04/09/2019 12:40 PM) [facility]
--- NOTE | 2019-04-09 13:19 | HP ---
ADMIT DATE: HISTORY OF PRESENT ILLNESS: A 68-year-old male with significant squamous cell carcinoma to his face and arm. The patient came in through the Emergency Room, however, he was having bloody diarrhea and he was becoming quite anemic, he had the diarrhea for the last 4 days prior to admission. It was bright red rectal bleeding. The patient also had some history of hypokalemia and dehydration. He has been receiving some IV potassium as an outpatient. The patient had no other recent changes. He has been undergoing therapy. Apparently, he has significant squamous cell carcinoma, preauricular area as well as on his left forearm. There is approximately 12 x 10 cm mass that he has undergone apparently radiation therapy unlike another chemo, apparently was unable to tolerate the latter. Anyway, the patient was admitted for this acute loss of bright red rectal bleeding, also dehydration unlike. PAST MEDICAL HISTORY: Apparently, he has had a history of paroxysmal atrial fibrillation as it comes and goes. He had an ablation for his AFib, coronary stent placement, hypercholesterolemia, hypertension, GERD. 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 ALLERGIES: He has no known drug allergies. FAMILY HISTORY: Melanoma in 2 brothers, one brother with schizophrenia. Father had myocardial infarction and hypertension. Mother with diabetes and breast cancer. SOCIAL HISTORY: The patient has about 40-50 pack year history of smoking, apparently continues to smoke and the patient occasional alcohol, but nothing significant. No hard drug use. The patient is a full code at this time, although at times he has been on hospice. REVIEW OF SYSTEMS: As noted. The patient is a little lethargic, pale appearing. Denies chest pain, shortness of breath. Denies abdominal pain. Denies any melena, hematochezia or hematemesis except for what was already noted, which was new here in the last 3-4 days. Otherwise, he does have some difficulty in speaking, probably related to the surgery in the preauricular area where there is an ulcerated area where the cancer was and it looks like they have either excised it or radiated it. PHYSICAL EXAMINATION: GENERAL: This is a pale-appearing white male, looking somewhat older than stated age, very weakened. VITAL SIGNS: Blood pressure 108/81, respirations 16, pulse 68, afebrile. HEENT: The patient's head was basically atraumatic except for the preauricular area, where there is a significant lesion or a piece of skin missing from the preauricular area. Otherwise, mouth and throat poor dentition. The eyes were PERRLA, EOMI, without jaundice. LUNGS: Basically diminished, but clear. CARDIOVASCULAR: Regular irregular rhythm. ABDOMEN: Soft, protuberant, nontender. No rebound or guarding. Positive bowel sounds. Stool hemoccult positive. EXTREMITIES: No clubbing, cyanosis or edema. NEUROLOGIC: The patient is alert and oriented, although he does have difficulty enunciating words as he does have some asymmetry to his lips. Neurologically, otherwise stable. Moving all extremities well. LABORATORY DATA: The patient's labs show hemoglobin 7.7, hematocrit 23, white count 5. The patient's sodium and potassium 142 and 3.7. BUN and creatinine 6 and 0.8. GFR of 96. Iron was low at 20. Albumin low at 2.3. 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 The patient will be admitted. We will give 1 unit packed RBCs, hydrate, make further evaluation, place him on iron supplementation and we will see how he goes from there. TED PETERSON MD DR: GRANT/gricel JOB#: [id number] / [id number]
[2019-04-09] MEDS: NON FORMULARY ITEM (Potassium Gluconate 90 MG) PO SCH (13:27)
[2019-04-09] MEDS: AA 3%/ELECTROLYTE-TPN SOLN/GLY 1,000 ML IV SCH ×2 (14:49→22:30)
[2019-04-09] MEDS ORDERED: METHYL SALICYLATE/MENTHOL TOPICAL OINTMENT 57GM TUBE. TP PRN (15:15)
[2019-04-09] MEDS ORDERED: POLY17PO5 PO (15:56)
[2019-04-09] MEDS ORDERED: DOCU-109 PO (15:56)
[2019-04-09] MEDS ORDERED: FENT1PAT19 TP (15:56)
[2019-04-09] MEDS: DOCUSATE SODIUM 100 MG CAPSULE PO SCH (17:07)
[2019-04-09] MEDS: POLYETHYLENE GLYCOL 3350 17 GM PACKET. PO SCH (17:08)
[2019-04-09] MEDS: fentaNYL 75MCG/HR 1 PATCH PATCH TD SCH (17:08)
[2019-04-09] MEDS: SIMVASTATIN 20 MG TABLET PO SCH (21:31)
[2019-04-09] MEDS: ZOLPIDEM 5 MG TABLET. PO PRN ×2 (21:31→22:38)
[2019-04-09] MEDS: MELATONIN 3 MG TABLET PO SCH (21:32)
[2019-04-10] MEDS: oxyCODONE/APAP 10/325 1 TAB TABLET PO SCH ×4 (05:14→21:22)
[2019-04-10 07:23] VITALS: BP 106/66
--- NOTE | 2019-04-10 07:41 | PDOC2 ---
CARDIAC CONSULT DATE OF CONSULT Date Of Consult DATE: 04/10/19 TIME: 07:30 REASON FOR CONSULT Reason for Consult Need for anticoagulation REFERRING PHYSICIAN Referring Physician Dr. 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 Patient reports he had been "backed up" for several days then eventually developed blood diarrhea. Denies any chest pain, palpitations, dizziness, diaphoresis, or nausea/vomiting. Follow with Dr. Byrnes. 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) Endocrine: Diabetes PAST SURGICAL HISTORY Past Surgical History: Other (CAD s/p PCI/GEO ) FAMILY HISTORY Family History: Diabetes, Hypertension SOCIAL HISTORY Smoke: No ALCOHOL: none Drugs: None Lives: with Family CURRENT MEDICATIONS Current Medications Current Medications Sodium Chloride 500 ml @ 0 mls/hr 1X ONCE IV Last administered on 04/08/19at 15:10; Start 04/08/19 at 14:45; Stop 04/08/19 at 15:04; Status DC Ondansetron HCl (Zofran) 4 mg PRN Q4HRS PRN IV NAUSEA/VOMITING; Start 04/08/19 at 17:30; Stop 04/09/19 at 17:29; Status DC Acetaminophen (Tylenol) 650 mg PRN Q4HRS PRN PO FEVER; Start 04/08/19 at 17:30; Stop 04/09/19 at 17:29; Status DC Apixaban (Eliquis) 5 mg BID PO ; Start 04/08/19 at 21:00; Stop 04/08/19 at 18:53; Status DC Digoxin (Lanoxin) 125 mcg DAILY PO Last administered on 04/09/19at 10:20; Start 04/09/19 at 09:00 Lisinopril (Prinivil) 2.5 mg DAILY PO ; Start 04/09/19 at 09:00; Stop 04/08/19 at 18:53; Status DC Metoprolol Tartrate (Lopressor) 50 mg BID PO Last administered on 04/09/19at 21:31; Start 04/08/19 at 21:00 Oxycodone/ Acetaminophen (Percocet 10/325) 1 tab QID PO Last administered on 04/10/19at 05:14; Start 04/08/19 at 21:00 Prednisone (Prednisone) 10 mg DAILY PO Last administered on 04/09/19at 10:20; Start 04/09/19 at 09:00 Pregabalin (Lyrica) 75 mg BID PO Last administered on 04/09/19at 21:30; Start 04/08/19 at 21:00 Simvastatin (Zocor) 20 mg HS PO Last administered on 04/09/19 21:31; Start 04/08/19 at 21:00 Non-Formulary Medication (Potassium Gluconate ) 90 mg DAILY PO ; Start 04/09/19 at 09:00; Status UNV Zolpidem Tartrate (Ambien) 5 mg PRN QHS PRN PO INSOMNIA, MAY REPEAT IN 1HR Last administered on 04/09/19at 22:38; Start 04/08/19 at 21:15 Iohexol (Omnipaque 240 Mg/ml) 50 ml 1X ONCE PO Last administered on 04/09/19at 11:17; Start 04/09/19 at 09:45; Stop 04/09/19 at 09:50; Status DC Iohexol (Omnipaque 300 Mg/ml) 75 ml 1X ONCE IV Last administered on 04/09/19at 11:17; Start 04/09/19 at 09:45; Stop 04/09/19 at 09:50; Status DC Amino Acids/ Glycerin/ Electrolytes 1,000 ml @ 80 mls/hr [id number] IV Last administered on 04/09/19at 14:49; Start 04/09/19 at 10:00 Lisinopril (Prinivil) 10 mg DAILY PO ; Start 04/10/19 at 09:00 Ferrous Sulfate (Feosol) 325 mg DAILYWBKFT PO ; Start 04/10/19 at 08:00 Multi-Ingredient Ointment (Analgesic [place]) 1 christelle PRN QID PRN TP MUSCLE PAIN; Start 04/09/19 at 15:15 Melatonin (Melatonin) 10 mg HS PO Last administered on 04/09/19at 21:32; Start 04/09/19 at 21:00 Docusate Sodium (Colace) 100 mg BIDWMEALS PO Last administered on 04/09/19at 17:07; Start 04/09/19 at 17:00 Fentanyl (Duragesic 75mcg/ Hr) 1 patch Q3DAYS TD Last administered on 04/09/19at 17:08; Start 04/09/19 at 16:00 Polyethylene Glycol (miraLAX) 17 gm BIDWMEALS PO Last administered on 04/09/19at 17:08; Start 04/09/19 at 17:00 Active Scripts Active Eliquis (Apixaban) 5 Mg Tablet 5 Mg PO BID 30 Days Keflex (Cephalexin) 500 Mg Capsule 1 Cap PO TID Metoprolol Tartrate 50 Mg Tablet 1 Tab PO BID Lyrica (Pregabalin) 75 Mg Capsule 1 Cap PO BID Digoxin 125 Mcg Tablet 1 Tab PO DAILY Reported FENTANYL 75mcg/hr (Fentanyl) 1 Each Patch.td72 1 Patch TP Q3DAYS Miralax (Polyethylene Glycol 3350) 17 Gm Powd.pack 1 Packet PO BIDWMEALS Colace (Docusate Sodium) 100 Mg Capsule 1 Cap PO BIDWMEALS Potassium Gluconate 90 Mg Tablet 90 Mg PO DAILY LAST DOSE GIVEN: DATE: TIME: NEXT DOSE DUE: DATE: TIME: Percocet 10-325 Mg Tablet (Oxycodone Hcl/Acetaminophen) 1 Each Tablet 1 Tab PO QID LAST DOSE GIVEN: DATE: TIME: NEXT DOSE DUE: DATE: TIME: Aspirin 81 Mg Tab.chew 81 Mg PO DAILY LAST DOSE GIVEN: DATE: TIME: NEXT DOSE DUE: DATE: TIME: Prednisone 5 Mg Tablet 10 Mg PO DAILY 10 MG DOSE ON 09-12-17 IS LAST DOSE Lisinopril 2.5 Mg Tablet 2.5 Mg PO DAILY LAST DOSE GIVEN: DATE: TIME: NEXT DOSE DUE: DATE: TIME: Simvastatin 20 Mg Tablet 20 Mg PO HS LAST DOSE GIVEN: DATE: TIME: NEXT DOSE DUE: DATE: TIME: ALLERGIES Allergies: Coded Allergies: No Known Drug Allergies (Unverified , 05/04/16) ROS Review of Systems 14 point ROS conducted with pertinent positives noted above in HPI. PHYSICAL EXAM General: Alert, Oriented X3, Cooperative, No acute distress HEENT: Atraumatic, Mucous membr. moist/pink Lungs: Clear to auscultation Heart: Regular rate (not on tele, but heart tones regular ), Normal S1, Normal S2, Other (2/6 systolic murmur ) Extremities: Other (trace bilateral LE edema ) Skin: No breakdown Neuro: Normal speech, Sensation intact Psych/Mental Status: Mental status NL, Other (falt affect ) MUSCULOSKELETAL: Osteoarthritic changes both hands VITALS Vital Signs Vital Signs Date Time Temp Pulse Resp B/P (MAP) Pulse Ox O2 Delivery O2 Flow Rate FiO2 04/10/19 07:23 97.5 64 14 106/66 (79) 98 Room Air LABS LABS Laboratory Tests Test 04/08/19 14:38 04/08/19 15:00 04/08/19 15:40 04/09/19 06:30 Stool Occult Blood Positive (NEG) White Blood Count 5.0 x10^3/uL (4.0-11.0) 4.7 x10^3/uL (4.0-11.0) Red Blood Count 2.29 x10^6/uL (4.30-5.70) 2.28 x10^6/uL (4.30-5.70) Hemoglobin 7.7 g/dL (13.0-17.5) 7.8 g/dL (13.0-17.5) Hematocrit 23.1 % (39.0-53.0) 22.9 % (39.0-53.0) Mean Corpuscular Volume 101 fL (79-100) 100 fL (79-100) Mean Corpuscular Hemoglobin 34 pg (25-35) 34 pg (25-35) Mean Corpuscular Hemoglobin Concent 34 g/dL (31-37) 34 g/dL (31-37) Red Cell Distribution Width 14.9 % (11.5-14.5) 15.0 % (11.5-14.5) Platelet Count 340 x10^3/uL (140-400) 338 x10^3/uL (140-400) Neutrophils (%) (Auto) 77 % (31-73) 66 % (31-73) Lymphocytes (%) (Auto) 12 % (24-48) 20 % (24-48) Monocytes (%) (Auto) 8 % (0-9) 11 % (0-9) Eosinophils (%) (Auto) 2 % (0-3) 3 % (0-3) Basophils (%) (Auto) 1 % (0-3) 1 % (0-3) Neutrophils # (Auto) 3.8 x10^3uL (1.8-7.7) 3.1 x10^3uL (1.8-7.7) Lymphocytes # (Auto) 0.6 x10^3/uL (1.0-4.8) 0.9 x10^3/uL (1.0-4.8) Monocytes # (Auto) 0.4 x10^3/uL (0.0-1.1) 0.5 x10^3/uL (0.0-1.1) Eosinophils # (Auto) 0.1 x10^3/uL (0.0-0.7) 0.2 x10^3/uL (0.0-0.7) Basophils # (Auto) 0.0 x10^3/uL (0.0-0.2) 0.0 x10^3/uL (0.0-0.2) Prothrombin Time 10.5 SEC (9.4-11.4) Prothromb Time International Ratio 1.0 (0.9-1.1) Activated Partial Thromboplast Time 27 SEC (23-33) Sodium Level 141 mmol/L (136-145) 142 mmol/L (136-145) Potassium Level 3.8 mmol/L (3.5-5.1) 3.7 mmol/L (3.5-5.1) Chloride Level 106 mmol/L (98-107) 107 mmol/L (98-107) Carbon Dioxide Level 26 mmol/L (21-32) 27 mmol/L (21-32) Anion Gap 9 (6-14) 8 (6-14) Blood Urea Nitrogen 6 mg/dL (8-26) 6 mg/dL (8-26) Creatinine 0.8 mg/dL (0.7-1.3) 0.8 mg/dL (0.7-1.3) Estimated GFR (Cockcroft-Gault) 96.1 96.1 BUN/Creatinine Ratio 8 (6-20) Glucose Level 109 mg/dL (70-99) 97 mg/dL (70-99) Calcium Level 8.4 mg/dL (8.5-10.1) 8.3 mg/dL (8.5-10.1) Iron Level 20 ug/dL (65-175) Total Iron Binding Capacity 124 ug/dL (250-450) Iron Saturation 16 % (15-34) Total Bilirubin 0.2 mg/dL (0.2-1.0) Aspartate Amino Transf (AST/SGOT) 16 U/L (15-37) Alanine Aminotransferase (ALT/SGPT) 9 U/L (16-63) Alkaline Phosphatase 57 U/L (46-116) Total Protein 5.8 g/dL (6.4-8.2) Albumin 2.3 g/dL (3.4-5.0) Albumin/Globulin Ratio 0.7 (1.0-1.7) Urine Collection Type Unknown Urine Color Yellow Urine Clarity Clear Urine pH 5.5 Urine Specific [place] 1.010 Urine Protein Neg (NEG-TRACE) Urine Glucose (UA) Neg mg/dL (NEG) Urine Ketones (Stick) Neg mg/dL (NEG) Urine Blood Neg (NEG) Urine Nitrite Neg (NEG) Urine Bilirubin Neg (NEG) Urine Urobilinogen Dipstick 0.2 mg/dL (0.2 mg/dL) Urine Leukocyte Esterase Neg (NEG) Urine RBC 0 /HPF (0-2) Urine WBC Rare /HPF (0-4) Urine Squamous Epithelial Cells Occ /LPF Urine Bacteria 0 /HPF (0-FEW) Urine Hyaline Casts Occ /HPF Urine Mucus Slight /LPF ECHOCARDIOGRAM Echocardiogram ECHOCARDIOGRAM IMPRESSION (07/17/2015): This is a technically difficult study due to body habitus. The left ventricular systolic function appears normal. There is aortic valve sclerosis and trace aortic regurgitation. The estimated pulmonary artery systolic pressure is normal at 29 mmHg. <Conclusion> There is mild concentric left ventricular hypertrophy. The left ventricular systolic function is normal and the ejection fraction is within normal range. The Ejection Fraction is 55-60%. Doppler and Color Flow revealed mild to moderate aortic regurgitation. Doppler and Color Flow revealed mild to moderate mitral regurgitation. Doppler and Color Flow revealed mild to moderate tricuspid regurgitation. The PASP is 45mmHg. There is no evidence of significant pericardial effusion. DATE: 09/15/17 0919 <Conclusion> The left ventricular systolic function is normal. The Ejection Fraction is 55-60%. There is normal LV segmental wall motion. Mild mitral regurgitation. Mild tricuspid regurgitation. There is no evidence of significant pericardial effusion. DATE: 05/07/18 1115 STRESS TEST Stress Test NUCLEAR STRESS TEST IMPRESSION (07/17/2015): Normal myocardial perfusion scan. Normal left ventricular systolic function. Ejection fraction: 61%. There is no stress induced left ventricular dilatation or increase in lung to heart ratio. There were no diagnostic stress induced ECG changes. The ECG was low voltage. There were frequent PAC's. There was a normal heart rate and a normal blood pressure response to stress. There was no chest pain during stress. Poor exercise tolerance. No previous study available for comparison. HEART CATH Heart Cath CARDIAC CATHETERIZATION AND PERCUTANEOUS CORONARY INTERVENTION IMPRESSION (08/27/2010): 1. Mild pulmonary hypertension, but I was unable to confirm the actual pulmonary pressure since the [place]olanda catheter would not advance into the pulmonary artery. Nevertheless, there was mild right ventricular hypertension indicative of at least mild pulmonary hypertension. 2. Normal left heart pressures. 3. Status post successful stent placement to the left circumflex coronary artery with a 2.5 x 23 mm bare metal Vision stent with 0% residual stenosis and JOVITA- III flow. 4. Status post successful stent placement to the mid right coronary artery with a 3 x 18 mm bare metal Mini-Vision stent with 0% residual stenosis and JOVITA-III flow. 5. There is rsdqrozr-ce-hbjgly left ventricular systolic dysfunction with an estimated ejection fraction of 30%. 6. There is wbjuwydr-bi-wdgolb mitral regurgitation. 7. The patient remains in atrial fibrillation with a rapid ventricular rate. ASSESSMENT/PLAN Assessment/Plan 1. GI bleed; CT noted with rectal wall thickening and inflammatory changes suggests stercoral colitis. Rectal malignancy cannot be ruled out. 2. Anemia; iron deficiency and acute blood loss. S/p 1 unit PRBCs 3. Squamous cell carcinoma of the parotid gland and left FA. s/p chemo and radiation. Has previously been on Hospice 4. PAFIB s/p previous CV. Not on tele, heart tones regular 5. CAD s/p PCI/GEO to the RCA and LCx 08/2010. [facility] [place] [employer] Dr. Byrnes 6. Hypertension; controlled 7. Hyperlipidemia; statin therapy 8. Diabetes, II 9. H/o ICM with LV recovery. LVEF 55-60% 05/2018 Recommendations Hold ASA, Eliquis. Place on tele Continue additional secondary prevention; BB, ACEi, statin therapy Supportive care from a CV standpoint YUNIOR BERRY APRN Apr 10, 2019 07:41
[2019-04-10] MEDS: DIGOXIN 125 MCG TABLET PO SCH (08:27)
[2019-04-10] MEDS: FERROUS SULFATE 325 MG TABLET. PO SCH (08:27)
[2019-04-10] MEDS: POLYETHYLENE GLYCOL 3350 17 GM PACKET. PO SCH ×3 (08:27→18:20)
[2019-04-10] MEDS: PREGABALIN 75 MG CAPSULE PO SCH ×2 (08:27→21:21)
[2019-04-10] MEDS: DOCUSATE SODIUM 100 MG CAPSULE PO SCH ×2 (08:27→17:23)
[2019-04-10] MEDS: predniSONE 10 MG TABLET PO SCH (08:28)
[2019-04-10] MEDS: NON FORMULARY ITEM (Potassium Gluconate 90 MG) PO SCH (08:30)
[2019-04-10] MEDS: AA 3%/ELECTROLYTE-TPN SOLN/GLY 1,000 ML IV SCH ×2 (08:32→21:23)
[2019-04-10 08:44] LABS: BASO % 1 % (0-3); EOS # 0.1 x10^3/uL (0.0-0.7); EOS % 1 % (0-3); HEMATOCRIT 24.5 % (39.0-53.0); HEMOGLOBIN 8.3 g/dL (13.0-17.5); LYMPH # 0.9 x10^3/uL (1.0-4.8); LYMPH % 18 % (24-48); MEAN CORPUSCULAR HEMOGLOBIN 33 pg (25-35); MEAN CORPUSCULAR HGB CONC 34 g/dL (31-37); MEAN CORPUSCULAR VOLUME 97 fL (79-100); MONO # 0.5 x10^3/uL (0.0-1.1); MONO % 11 % (0-9); NEUT # 3.4 x10^3uL (1.8-7.7); NEUT % 69 % (31-73); PLATELET COUNT 334 x10^3/uL (140-400); RED BLOOD COUNT 2.52 x10^6/uL (4.30-5.70); RED CELL DISTRIBUTION WIDTH 16.7 % (11.5-14.5)
[2019-04-10] MEDS ORDERED: LISINOPRIL 10 MG TABLET PO SCH ×2 (09:00)
[2019-04-10] MEDS: METOPROLOL TART IMMED RELEASE 50 MG TABLET PO SCH ×2 (09:00→21:22)
[2019-04-10 09:35] VITALS: BP 97/56
[2019-04-10 11:08] VITALS: BP 104/65
[2019-04-10] MEDS ORDERED: SODIUM PHOSPHATES 19/7GM 133 ML ENEMA. PR ONE (12:30)
[2019-04-10] MEDS ORDERED: MAGNESIUM CITRATE 296 ML SOLUTION. PO ONE (12:30)
[2019-04-10 13:31] LABS: THYROID STIM HORMONE (TSH) 1.724 uIU/mL (0.358-3.740)
[2019-04-10 15:06] VITALS: BP 125/71
[2019-04-10 19:58] VITALS: BP 104/63
[2019-04-10] MEDS: MELATONIN 3 MG TABLET PO SCH (21:22)
[2019-04-10] MEDS: SIMVASTATIN 20 MG TABLET PO SCH (21:22)
[2019-04-10 22:16] LABS: HEMATOCRIT 23.6 % (39.0-53.0); HEMOGLOBIN 8.1 g/dL (13.0-17.5)
[2019-04-10 22:18] VITALS: BP 97/60
--- NOTE | 2019-04-11 02:26 | PN ---
DATE: 04/10/2019 SUBJECTIVE: The patient is resting, slightly propped up in bed, in no apparent distress. He denied any complaint. He was apparently admitted with bloody diarrhea and was becoming quite anemic. He had had diarrhea for the last 4 days prior to admission, it was bright red rectal bleeding, had some history of hypokalemia and dehydration. He has been receiving some IV potassium as an outpatient. He has significant squamous cell carcinoma preauricular area as well as his left forearm approximately 12 x 10 cm mass and that has undergone apparently radiation therapy unlike another chemotherapy, apparently he was unable to tolerate latter. He was admitted for dehydration, hypokalemia and acute blood loss anemia due to rectal bleeding. He is unfortunately also on apixaban for atrial fibrillation and a CT scan showed that he has a large chronic burden with circumferential rectal wall thickening and perirectal inflammatory changes suggestive of stercoral colitis, rectal malignancy not to ruled out and nonemergent colonoscopy is recommended. OBJECTIVE: GENERAL: When I saw him this morning, he looked pale, cachectic, but no jaundice, cyanosis or thyromegaly. No jugular venous distention. No limb edema. VITAL SIGNS: His heart rate was 65, blood pressure was 104/65, temperature was 97.8, respiratory rate was 17 and oxygen saturation was 98% on room air. HEAD, EYES, EARS, NOSE AND THROAT: Showed normocephalic, atraumatic. NECK: Supple. HEART: Showed normal first and second heart sounds. No gallop or murmur. CHEST: Clear to auscultation. No crepitation or rhonchi. ABDOMEN: Scaphoid, soft, nontender. RECTAL: I did a rectal exam which showed that he has large amount of dry stool filling the rectal vault and the anal sphincter tone was normal. 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 His intake was 900, output was 350. LABORATORY DATA: Showed a white cell count 5000, hemoglobin 8.3, hematocrit 24.5, MCV 97, platelet count 334,000. His chemistry showed a serum sodium 142, potassium of 3.4, chloride 107, bicarbonate 27, anion gap of 8, BUN 6, creatinine 0.8, estimated GFR was 96 mL per minute, his glucose was 97, calcium was 8.2. Serum iron was 20, TIBC was 124. Iron saturation was 16. His total bilirubin, AST, ALT, alkaline phosphatase were normal. Total protein was 5.8, albumin was 2.3. His prothrombin time, INR and aPTT were normal. Urinalysis was essentially unremarkable and his stool for occult blood was positive. 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 He has also left forearm squamous cell carcinoma. He has also atrial fibrillation, rate controlled and dual anticoagulated on apixaban, coronary artery disease, status post PCI with stent deployment, has hypertension, hyperlipidemia, obstructive sleep apnea, gastroesophageal reflux disease and type [address] scan showed that he has bibasilar centrilobular nodule, likely aspiration infection. He also has large chronic burden with circumferential rectal wall thickening and perirectal inflammatory changes suggestive of stercoral colitis, rectal malignancy not to ruled out. A nonemergent colonoscopy is recommended. I attempted to do digital disimpaction; however, the patient wanted to be done under general anesthesia, which I told that we do not do that. PLAN: My plan is to try Relistor may be 6 mg subcutaneously once a day and may be a Fleet enema and we will decide on further management accordingly. We will monitor his H and H every 12 hours and transfuse him as needed and I will also start him on a regimen of MiraLax twice a day, Colace twice a day and maybe we should consider also adding a magnesium citrate to see if we can resolve this constipation. TOM BARAHONA MD DR: DARYL/gricel JOB#: [id number] / [id number]
[2019-04-11 04:55] VITALS: BP 111/68
[2019-04-11 05:05] LABS: HEMATOCRIT 25.2 % (39.0-53.0); HEMOGLOBIN 8.5 g/dL (13.0-17.5); RED BLOOD COUNT 2.57 x10^6/uL (4.30-5.70); RED CELL DISTRIBUTION WIDTH 16.1 % (11.5-14.5); WHITE BLOOD COUNT 6.2 x10^3/uL (4.0-11.0)
[2019-04-11 05:16] LABS: ALBUMIN 1.9 g/dL (3.4-5.0); ALBUMIN/GLOBULIN RATIO 0.6 (1.0-1.7); CREATININE 0.7 mg/dL (0.7-1.3); GFR 112.1; POTASSIUM 4.3 mmol/L (3.5-5.1); TOTAL BILIRUBIN 0.1 mg/dL (0.2-1.0); TOTAL PROTEIN 5.2 g/dL (6.4-8.2)
[2019-04-11] MEDS: PREGABALIN 75 MG CAPSULE PO SCH ×2 (07:54→20:52)
[2019-04-11] MEDS: LISINOPRIL 5 MG TABLET. PO SCH (07:54)
[2019-04-11] MEDS: DIGOXIN 125 MCG TABLET PO SCH (07:58)
[2019-04-11] MEDS: predniSONE 10 MG TABLET PO SCH (07:58)
[2019-04-11] MEDS: oxyCODONE/APAP 10/325 1 TAB TABLET PO SCH ×4 (07:58→20:52)
[2019-04-11] MEDS: FERROUS SULFATE 325 MG TABLET. PO SCH (07:58)
[2019-04-11] MEDS: POLYETHYLENE GLYCOL 3350 17 GM PACKET. PO SCH ×3 (07:59→17:00)
[2019-04-11] MEDS: METOPROLOL TART IMMED RELEASE 50 MG TABLET PO SCH ×2 (07:59→20:51)
[2019-04-11] MEDS: DOCUSATE SODIUM 100 MG CAPSULE PO SCH ×2 (08:00→17:00)
--- NOTE | 2019-04-11 10:13 | PDOC ---
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 GI bleed; CT noted with rectal wall thickening and inflammatory changes suggests stercoral colitis. Rectal malignancy cannot be ruled out. Continue current workup and management 2. Anemia; iron deficiency and acute blood loss. S/p 1 unit PRBCs 3. Squamous cell carcinoma of the parotid gland and left FA. s/p chemo and radiation. Has previously been on Hospice 4. PAFIB s/p previous CV. Presently in SR. Eliquis stopped due to GIB. He is poor candidate for care home anticoagulation. 5. CAD s/p PCI/GEO to the RCA and LCx 08/2010. Clinically stable. Follow up with primary bee worker Dr. Byrnes on DC 6. Hypertension; controlled 7. Hyperlipidemia; statin therapy 8. Diabetes, II 9. H/o ICM with LV recovery. LVEF 55-60% 05/2018 Objective Vital Signs Date Time Temp Pulse Resp B/P (MAP) Pulse Ox O2 Delivery O2 Flow Rate FiO2 04/11/19 08:20 Room Air 04/11/19 07:59 65 111/68 04/11/19 04:55 18 100 04/10/19 19:58 97.4 Intake and Output 04/11/19 06:59 Intake Total 240 ml Balance 240 ml Intake Oral 240 ml # Voids 4 # Bowel Movements 8 Review of Relevant I have reviewed the following items asim (where applicable) has been applied. Labs Laboratory Tests Test 04/10/19 22:03 04/11/19 04:50 Hemoglobin 8.1 g/dL (13.0-17.5) L 8.5 g/dL (13.0-17.5) L Hematocrit 23.6 % (39.0-53.0) L 25.2 % (39.0-53.0) L Mean Corpuscular Hemoglobin Concent 34 g/dL (31-37) 34 g/dL (31-37) White Blood Count 6.2 x10^3/uL (4.0-11.0) Red Blood Count 2.57 x10^6/uL (4.30-5.70) L Mean Corpuscular Volume 98 fL (79-100) Mean Corpuscular Hemoglobin 33 pg (25-35) Red Cell Distribution Width 16.1 % (11.5-14.5) H Platelet Count 359 x10^3/uL (140-400) Sodium Level 142 mmol/L (136-145) Potassium Level 4.3 mmol/L (3.5-5.1) Chloride Level 107 mmol/L (98-107) Carbon Dioxide Level 31 mmol/L (21-32) Anion Gap 4 (6-14) L Blood Urea Nitrogen 8 mg/dL (8-26) Creatinine 0.7 mg/dL (0.7-1.3) Estimated GFR (Cockcroft-Gault) 112.1 BUN/Creatinine Ratio 11 (6-20) Glucose Level 100 mg/dL (70-99) H Calcium Level 8.0 mg/dL (8.5-10.1) L Total Bilirubin 0.1 mg/dL (0.2-1.0) L Aspartate Amino Transferase (AST) 11 U/L (15-37) L Alanine Aminotransferase (ALT) 7 U/L (16-63) L Alkaline Phosphatase 54 U/L (46-116) Total Protein 5.2 g/dL (6.4-8.2) L Albumin 1.9 g/dL (3.4-5.0) L Albumin/Globulin Ratio 0.6 (1.0-1.7) L Medications Current Medications Medications (Trade) Dose Ordered Sig/Joaquin Route PRN Reason Start Time Stop Time Status Last Admin Dose Admin Lisinopril (Prinivil) 5 mg DAILY PO 04/11/19 09:00 04/11/19 07:54 Magnesium Citrate (Citroma) 296 ml 1X ONCE PO 04/10/19 12:30 04/10/19 12:31 DC 04/10/19 13:08 Sodium Biphosphate/ Sodium Phosphate (Fleet Adult) 133 ml 1X ONCE MN 04/10/19 12:30 04/10/19 12:31 DC 04/10/19 13:08 Vitals/I & O Vital Signs Date Time Temp Pulse Resp B/P (MAP) Pulse Ox O2 Delivery O2 Flow Rate FiO2 10/8/19 08:20 Room Air 04/11/19 07:59 65 111/68 04/11/19 04:55 18 100 04/10/19 19:58 97.4 I & O 04/10/19 04/10/19 04/11/19 14:59 22:59 06:59 Intake Total 240 ml Balance 240 ml CHRISTIANO HAWK MD Apr 11, 2019 10:13
[2019-04-11 10:36] VITALS: BP 84/50
[2019-04-11] MEDS: AA 3%/ELECTROLYTE-TPN SOLN/GLY 1,000 ML IV SCH (10:44)
[2019-04-11 14:17] VITALS: BP 84/47
--- NOTE | 2019-04-11 16:35 | RAD ---
EXAM: Abdomen, single view. HISTORY: Constipation or obstruction. COMPARISON: 04/08/2019 FINDINGS: A frontal view the abdomen is obtained. There is gas and stool within the colon. No abnormally dilated loop of bowel seen. There is degenerative change at the lumbosacral junction. IMPRESSION: Nonobstructive bowel gas pattern. Electronically signed by: Brenda Ibarra MD (04/11/2019 4:32 PM) [id number]
[2019-04-11 20:19] VITALS: BP 112/65
[2019-04-11] MEDS: MELATONIN 3 MG TABLET PO SCH (20:51)
[2019-04-11] MEDS: SIMVASTATIN 20 MG TABLET PO SCH (20:51)
--- NOTE | 2019-04-11 21:42 | PDOC ---
Exam Note: Chris Note: Please also refer to the separate dictated note~for this date of service dictated separately.~Patient seen individually. Discussed the patient with Nursing staff reviewed the chart.~Reviewed interim history and current functioning. Reviewed vital signs,~Labs/ Radiology~and current medications noted below. Continue current treatment with the changes noted in the dictated addendum note Assessment: Vital Signs/I&O: Vital Signs Date Time Temp Pulse Resp B/P (MAP) Pulse Ox O2 Delivery O2 Flow Rate FiO2 04/11/19 20:51 67 112/65 04/11/19 20:19 98.7 18 98 Room Air I & O 04/10/19 04/10/19 04/11/19 15:00 23:00 07:00 Intake Total 240 ml Balance 240 ml Labs: Laboratory Tests Test 04/10/19 22:03 04/11/19 04:50 Hemoglobin 8.1 g/dL (13.0-17.5) L 8.5 g/dL (13.0-17.5) L Hematocrit 23.6 % (39.0-53.0) L 25.2 % (39.0-53.0) L Mean Corpuscular Hemoglobin Concent 34 g/dL (31-37) 34 g/dL (31-37) White Blood Count 6.2 x10^3/uL (4.0-11.0) Red Blood Count 2.57 x10^6/uL (4.30-5.70) L Mean Corpuscular Volume 98 fL (79-100) Mean Corpuscular Hemoglobin 33 pg (25-35) Red Cell Distribution Width 16.1 % (11.5-14.5) H Platelet Count 359 x10^3/uL (140-400) Sodium Level 142 mmol/L (136-145) Potassium Level 4.3 mmol/L (3.5-5.1) Chloride Level 107 mmol/L (98-107) Carbon Dioxide Level 31 mmol/L (21-32) Anion Gap 4 (6-14) L Blood Urea Nitrogen 8 mg/dL (8-26) Creatinine 0.7 mg/dL (0.7-1.3) Estimated GFR (Cockcroft-Gault) 112.1 BUN/Creatinine Ratio 11 (6-20) Glucose Level 100 mg/dL (70-99) H Calcium Level 8.0 mg/dL (8.5-10.1) L Total Bilirubin 0.1 mg/dL (0.2-1.0) L Aspartate Amino Transferase (AST) 11 U/L (15-37) L Alanine Aminotransferase (ALT) 7 U/L (16-63) L Alkaline Phosphatase 54 U/L (46-116) Total Protein 5.2 g/dL (6.4-8.2) L Albumin 1.9 g/dL (3.4-5.0) L Albumin/Globulin Ratio 0.6 (1.0-1.7) L Current Medications: Meds: Current Medications Medications (Trade) Dose Ordered Sig/Joaquin Route PRN Reason Start Time Stop Time Status Last Admin Dose Admin Lisinopril (Prinivil) 5 mg DAILY PO 04/11/19 09:00 04/11/19 07:54 I have reviewed the current psychotropics carefully including drug interactions. Risk benefit ratio favors no change other than as noted in my dictated progress note. 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
[2019-04-12] MEDS: AA 3%/ELECTROLYTE-TPN SOLN/GLY 1,000 ML IV SCH (00:30)
[2019-04-12 00:57] VITALS: BP 110/64
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
[2019-04-12 06:23] VITALS: BP 94/52
[2019-04-12] MEDS: POLYETHYLENE GLYCOL 3350 17 GM PACKET. PO SCH (08:00)
--- NOTE | 2019-04-12 08:01 | RAD ---
PQRS Compliance Statement: One or more of the following individualized dose reduction techniques were utilized for this examination: 1. Automated exposure control 2. Adjustment of the mA and/or kV according to patient size 3. Use of iterative reconstruction technique CT cervical spine without contrast 04/11/2019. TECHNIQUE: Multiple axial CT images of the cervical spine were obtained without intravenous contrast. Coronal and sagittal reformats are provided. COMPARISON: CT cervical spine 02/10/2019 FINDINGS: There is reversal the normal cervical lordosis centered at C3-C4. Minimal anterolisthesis of C2 on C3. Minimal retrolisthesis of C3 on C4. Vertebral body heights are maintained. No acute fracture is identified. There is moderate degenerative changes at the atlantoaxial articulation with osseous erosion along the dens. Atlantooccipital articulation is intact with degenerative changes predominantly on the left side. Paraspinal soft tissues are normal. There is a left thyroid nodule measuring 12 mm. Surgical clips are identified on the left neck. Mild subcutaneous edema is noted. Left-sided parotidectomy changes are suspected. Right mastoid effusion is present. There is severe opacification of the left mastoid air cells with erosion of the inner table of the left temporal bone. Debris is noted in the left middle ear cavity. There is remodeling of the left mandibular condyle. Findings are chronic and stable dating back to 02/10/2019. C2-C3: There is a posterior disc osteophyte complex. There is severe right and moderate left facet arthropathy. There is moderate right and mild left neuroforaminal stenosis. Mild spinal canal stenosis. C3-C4: There is a posterior disc osteophyte complex with moderate facet arthropathy. There is severe right and moderate left uncovertebral joint disease. There is severe bilateral neuroforaminal stenosis and moderate spinal canal stenosis. C4-C5: There is a posterior disc osteophyte complex. There is moderate to severe right and moderate left facet arthropathy. There is mild to moderate uncovertebral joint disease. Moderate left and mild right neuroforaminal stenosis. Mild spinal canal stenosis. C5-C6: There is a posterior disc osteophyte complex asymmetric to the right. There is moderate facet and uncovertebral joint disease. There is moderate right and mild left neuroforaminal stenosis. Mild spinal canal stenosis, exacerbated by ligamentum flavum infolding. C6-C7: Mild disc bulge. Moderate facet and mild uncovertebral joint disease. Mild bilateral neuroforaminal stenosis. No spinal canal stenosis. IMPRESSION: 1. Moderate cervical spondylosis. No acute fracture or suspicious osseous lesion is identified involving the cervical spine. 2. Severe degenerative changes are identified at the atlantoaxial articulation with osseous erosions as may be seen with rheumatoid arthritis, gout or pseudogout. 3. Severe osseous erosion of the left mastoid air cells secondary to otomastoiditis with persistent erosion of the inner table of the left temporal bone, not significantly changed since 02/10/2019. Associated possible complications including thrombosis of the left sigmoid sinus and if not already previously performed, CTV or MRI/MRV may be of benefit. Electronically signed by: Angela Hutton MD (04/12/2019 7:59 AM) [facility]
[2019-04-12] MEDS: FERROUS SULFATE 325 MG TABLET. PO SCH (08:46)
[2019-04-12] MEDS: predniSONE 10 MG TABLET PO SCH (08:46)
[2019-04-12] MEDS: DOCUSATE SODIUM 100 MG CAPSULE PO SCH (08:46)
[2019-04-12] MEDS: oxyCODONE/APAP 10/325 1 TAB TABLET PO SCH (08:47)
[2019-04-12] MEDS: PREGABALIN 75 MG CAPSULE PO SCH (08:50)
[2019-04-12 09:00] VITALS: BP 94/52
[2019-04-12] MEDS: METOPROLOL TART IMMED RELEASE 50 MG TABLET PO SCH (09:00)
[2019-04-12] MEDS: DIGOXIN 125 MCG TABLET PO SCH (09:00)
[2019-04-12] MEDS: LISINOPRIL 5 MG TABLET. PO SCH (09:00)
[2019-04-12] MEDS: fentaNYL 75MCG/HR 1 PATCH PATCH TD SCH (09:00)
[2019-04-12] MEDS ORDERED: POLY17PO5 PO (10:51)
--- NOTE | 2019-04-13 05:05 | CONS ---
DATE OF CONSULTATION: 04/11/2019 PSYCHIATRIC PROGRESS NOTE This late entry, 04/11/2019, covers elements not covered in my initial note, 04/11/2019. SUBJECTIVE: I met with the patient in the evening of 04/11/2019 in room 109, [address] [place] [address]. IDENTIFYING DATA: The patient is a 68-year-old male seen in room 109 for psychiatric consultation requested by Dr. Ho on account of the patient's worsening symptoms of depression, hopelessness, apathy and tiredness after he was admitted following being taken off hospice care and admitted secondary to diarrhea alternating with constipation with a question of bowel obstruction. The patient was seen individually in the evening of 04/11/2019. Discussed with nursing staff, reviewed the chart. CHIEF COMPLAINT: "Yes, I have no energy. I am tired, but I have many medical problems. Maybe if the depression medicine might help, I might consider it. I am not sure." HISTORY OF PRESENT ILLNESS: The patient has a significant history of squamous cell carcinoma to his face and arm. He came through the Emergency Room with bloody diarrhea, becoming quite anemic, and all this had worsened over the past 4 days. He also has a history of hypokalemia, dehydration, receiving some IV potassium as an outpatient. He does admit to being depressed with low energy, hopelessness, but no active psychotic symptoms, suicidal or homicidal ideation. He does admit to some short-term memory deficits, but otherwise reasonably cognitively intact. No clear history of bipolar disorder. PAST PSYCHIATRIC HISTORY: Positive for depression and anxiety. PAST MEDICAL HISTORY: In addition to above, positive for paroxysmal atrial fibrillation, has had an ablation, history of coronary stent placement, hypercholesterolemia, hypertension, GERD, history of anemia, skin cancer as noted. ALLERGIES: Negative. FAMILY HISTORY: Melanoma in 2 brothers, 1 brother with schizophrenia. Father had CA and hypertension. Mother with diabetes and breast cancer. SOCIAL HISTORY: The patient has a 40-50 pack year history of smoking, apparently continues to smoke and occasionally use alcohol, but not significant. No street drug abuse. He is a full code, but he has also been on hospice. REVIEW OF SYSTEMS: Positive for tiredness. No CV, , pulmonary, eye system symptoms on review. MENTAL STATUS EXAMINATION: The patient was seen individually in the evening of 04/11/2019. He is oriented to himself and situation. Speech has some latency, coherent, at times, somewhat pressured. Abstraction fair, computation impaired. Mood is somewhat dysphoric. Affect is mood congruent. He is anxious as well. No active psychotic symptoms, suicidal or homicidal ideation. LABORATORY DATA: Reviewed. IMPRESSION: Major depressive disorder, recurrent versus adjustment disorder with depressed mood and anxiety, mild cognitive impairment; anxiety disorder, unspecified. Rest as above. RECOMMENDATIONS: From a psychiatric standpoint, the patient may benefit from the addition of Wellbutrin-XL 150 mg a day. Nevertheless, given his multiple medical comorbidities, I will leave the final decision of this to Dr. Ho. He should tolerate the Wellbutrin reasonably, and if he does well, it may be adjusted later to [address] Ho, thank you for the opportunity to participate in your patient's care. We will follow with you. MAN Li GARNICA MD DR: POPPY/gricel JOB#: [id number] / [id number]
--- NOTE | 2019-04-24 15:20 | DS ---
DATE OF DISCHARGE: 04/12/2019 SUBJECTIVE: The patient is a 68-year-old male patient who was admitted through the Emergency Room as he apparently has bloody diarrhea and was found to be anemic. He has bright red blood per rectum. He was also found to be hypokalemic and dehydrated, so he did receive 1 unit of packed RBCs. Also, his potassium was replenished. In fact, his potassium has risen up from 3.8 to 4.3. He was also hydrated. His CT scan of the abdomen showed that he has severe obstipation and therefore he was treated aggressively with enema as well as MiraLax and mag citrate and he did actually has multiple large bowel movements. He did complain of severe pain in his cervical spine. We did CT scan of the cervical spine, which showed the patient has moderate spondylosis with no acute fracture or suspicious osseous lesion identified involving the cervical spine. He has severe degenerative changes identified at the atlantoaxial articulation with osseous erosion that may be seen with rheumatoid arthritis, gout or pseudogout. He was also found to have severe osseous erosion of the left mastoid air cells secondary to otomastoiditis with persistent erosion of the inner table of the left temporal bone, not significantly changed since 02/10/2019. Associated possible complication include thrombosis in the left sigmoid sinus, for which I actually discussed finding with his and given that he is already on apixaban, I am not sure that anything else can be done; however, I gave the option of arranging for an MRI and neurosurgical consult. His lab work showed a serum sodium 142, potassium 4.3, chloride 107, bicarbonate 31, anion gap of 4, BUN 8, creatinine 0.7, estimated GFR was 112 mL per minute, his glucose was 100, calcium was 8. Total bilirubin, AST, ALT, alkaline phosphatase were normal. Total protein was 5.2, albumin was 1.9. His white cell count was 6200, hemoglobin 8.5, hematocrit 25, MCV 98 and platelet count 159,000. His prothrombin time, INR and aPTT were normal. Urinalysis was unremarkable. He was discharged home to continue on following medications, polyethylene glycol 17 grams daily, apixaban 5 mg twice a day, aspirin 81 mg once a day, digoxin 125 mcg once a day, Colace 100 mg twice a day. He is on fentanyl 75 mcg per hour patch topically q. 72 hours, lisinopril 2.5 mg once a day, metoprolol tartrate 50 mg twice a day, oxycodone/APAP 10/325 one tablet 4 times a day. He is on potassium gluconate 90 mg p.o. daily. He is on prednisone 10 mg daily, pregabalin or Lyrica 75 mg twice a day and simvastatin 20 mg at bedtime. FINAL DISCHARGE DIAGNOSES: Blood loss anemia, for which he received 1 unit of packed RBCs. ASSESSMENT: 1. The patient has stercoral ulcer due to severe obstipation and constipation. He is also on apixaban. His constipation resolved. 2. 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 3. He has extensive left forearm squamous cell carcinoma. 4. Atrial fibrillation, rate controlled, well anticoagulated with apixaban. 5. Coronary artery disease, status post percutaneous coronary artery with stent deployment. 6. Hypertension. 7. Hyperlipidemia. 8. Obstructive sleep apnea. 9. Gastroesophageal reflux disease. 10. Type 2 diabetes mellitus. 11. Severe protein-calorie malnutrition. 12. Severe constipation, likely multifactorial. PLAN: He is mostly bedbound, probably not drink enough fluid and he is on multiple narcotics. The patient was advised to take his Colace twice a day, MiraLax once a day regularly and use mag citrate one bottle every 72 hours if he has no bowel movement within 3 days. Should follow with his primary care physician and a script was given for him to have an MRI of his brain and cervical spine with the primary care physician to make arrangement for him to be seen by the neurosurgical team. TOM BARAHONA MD DR: DARYL/gricel JOB#: [id number] / [id number]
== END 2019-04-12 11:40 | disposition home or self-care (01) | DRG 393 ==
LOC: ER 13:51 → 1 SOUTH 17:51
PROVIDERS: ADMIT Family Medicine; ATTEND Internal Medicine
PROC: 30233N1 Transfusion of Nonautologous Red Blood Cells into Peripheral Vein, Percutaneous Approach (ICD-10-PCS; principal; 2019-04-09)
DX: K63.3 Ulcer of intestine (principal); E43 Unspecified severe protein-calorie malnutrition; F33.9 Major depressive disorder, recurrent, unspecified; D62 Acute posthemorrhagic anemia; C78.5 Secondary malignant neoplasm of large intestine and rectum; E87.6 Hypokalemia; E86.0 Dehydration; E11.9 Type 2 diabetes mellitus without complications; E78.00 Pure hypercholesterolemia, unspecified; K59.00 Constipation, unspecified; F41.9 Anxiety disorder, unspecified; I11.0 Hypertensive heart disease with heart failure; Z51.5 Encounter for palliative care; I48.0 Paroxysmal atrial fibrillation; K21.9 Gastro-esophageal reflux disease without esophagitis; I25.10 Atherosclerotic heart disease of native coronary artery without angina pectoris; E78.5 Hyperlipidemia, unspecified; I50.9 Heart failure, unspecified; G47.33 Obstructive sleep apnea (adult) (pediatric); M47.9 Spondylosis, unspecified; C07 Malignant neoplasm of parotid gland; Z92.3 Personal history of irradiation; Z95.5 Presence of coronary angioplasty implant and graft; Z92.21 Personal history of antineoplastic chemotherapy; Z85.828 Personal history of other malignant neoplasm of skin; Z87.891 Personal history of nicotine dependence; Z85.818 Personal history of malignant neoplasm of other sites of lip, oral cavity, and pharynx; Z83.3 Family history of diabetes mellitus; Z82.49 Family history of ischemic heart disease and other diseases of the circulatory system; Z81.8 Family history of other mental and behavioral disorders; Z80.8 Family history of malignant neoplasm of other organs or systems; Z79.82 Long term (current) use of aspirin; Z79.899 Other long term (current) drug therapy; Z79.01 Long term (current) use of anticoagulants
CPT/HCPCS: 36415; 71260; 72125; 74018; 74019; 74177; 80048; 80053; 80061; 81001; 82274; 83540; 83550; 84443; 85014; 85018; 85025; 85027; 85610; 85730; 86850; 86900; 86901; 86920; 93005; 96360; J3490; J7040; J7512; P9016; Q9966; Q9967; 99285-25

== ENCOUNTER 2019-05-01 15:48 | Inpatient (IN) | payer OTHER ==
[~2019-05-01] VITALS: Ht 177.8 cm; Wt 76.9 kg
[~2019-05-01 15:48] MED LIST changes: +DOCU-109 PO; +FENT1PAT19 TP; +POLY17PO5 PO; +SIMV20TA18 PO; -SIMV20TA3 PO
[2019-05-01] MEDS ORDERED: SILVER NITRATE STICK TP ONE (16:15)
[2019-05-01] MEDS ORDERED: GELATIN SPONGE SIZE 12-7MM SPONGE. ONE (16:20)
[2019-05-01] MEDS ORDERED: SURGICEL HEMOSTAT 4X8 EACH. TP ONE (16:30)
[2019-05-01] MEDS ORDERED: GELATIN SPONGE SIZE 12-7MM SPONGE. TP ONE (16:30)
[2019-05-01 17:25] LABS: BASO % 0 % (0-3); EOS # 0.1 x10^3/uL (0.0-0.7); EOS % 2 % (0-3); LYMPH # 0.9 x10^3/uL (1.0-4.8); LYMPH % 14 % (24-48); MEAN CORPUSCULAR HEMOGLOBIN 33 pg (25-35); MEAN CORPUSCULAR HGB CONC 33 g/dL (31-37); MEAN CORPUSCULAR VOLUME 99 fL (79-100); MONO # 0.6 x10^3/uL (0.0-1.1); MONO % 9 % (0-9); NEUT # 4.7 x10^3uL (1.8-7.7); NEUT % 75 % (31-73); PLATELET COUNT 365 x10^3/uL (140-400); RED BLOOD COUNT 1.74 x10^6/uL (4.30-5.70); RED CELL DISTRIBUTION WIDTH 15.5 % (11.5-14.5); WHITE BLOOD COUNT 6.3 x10^3/uL (4.0-11.0)
[2019-05-01 17:55] LABS: CALCIUM 7.7 mg/dL (8.5-10.1); CREATININE 0.9 mg/dL (0.7-1.3); GFR 83.9; POTASSIUM 3.9 mmol/L (3.5-5.1)
--- NOTE | 2019-05-01 18:01 | PHYS DOC ---
Past History Past Medical History: A-Fib, Anxiety, Cancer, Depression, Hypertension, Other Additional Past Medical Histor: STENT PLACEMENT, PICC LINE Past Surgical History: Cancer Surgery, Other Additional Past Surgical Histo: STENT PLACEMENT Smoking: Non-smoker Alcohol Use: None Drug Use: None Adult General Chief Complaint Chief Complaint: WOUND CHECK HPI HPI Patient is a 68-year-old male who presents with significant squamous cell cancer left forearm that frequently bleeds. Patient presents requesting cauterization of the wound as well as blood transfusion. Patient states that he is feeling weak all over and feels like his blood count has dropped significantly. He denies any chest pain or shortness of breath. He also denies any fever.[] Review of Systems Review of Systems Constitutional: Denies fever or chills [] Respiratory: Denies cough or shortness of breath [] Cardiovascular: No additional information not addressed in HPI [] GI: Denies vomiting or diarrhea [] Integument: Positive large ulceration left forearm[] Musculoskeletal: Complains of back and left forearm pain Neurologic: Denies headache, focal weakness or sensory changes [] All other systems were reviewed and found to be within normal limits, except as documented in this note. Current Medications Current Medications Current Medications Medications (Trade) Dose Ordered Sig/Joaquin Start Time Stop Time Status Last Admin Dose Admin Cellulose (Surgicel Hemostat 4x8) 1 each 1X ONCE 05/01/19 16:30 05/01/19 16:31 DC Gelatin (Gelfoam Size 12-7mm) 1 each 1X ONCE 05/01/19 16:30 05/01/19 16:33 DC Silver Nitrate/ Potassium Nitrate 1 each STK-MED ONCE 05/01/19 16:15 05/01/19 16:15 DC Allergies Allergies Allergies Coded Allergies Type Severity Reaction Last Updated Verified No Known Drug Allergies 05/04/16 No Physical Exam Physical Exam Constitutional: Well developed, well nourished, no acute distress, non-toxic appearance. [] HENT: No acute traumatic injury identified, oropharynx dry, no oral exudates, nose normal. [] Eyes: PERRLA, EOMI, conjunctiva normal, no discharge. [] Neck: Normal range of motion, no tenderness, supple, no stridor. [] Cardiovascular: Regular rate and rhythm[] Lungs & Thorax: Bilateral breath sounds clear to auscultation [] Abdomen: Bowel sounds normal, soft. [] Skin: Warm, dry, large fungating ulceration left forearm. [] Extremities: No cyanosis, no clubbing, ROM intact, no edema. [] Neurologic: Awake and alert. [] Current Patient Data Vital Signs Vital Signs Date Time Temp Pulse Resp B/P (MAP) Pulse Ox O2 Delivery O2 Flow Rate FiO2 05/01/19 16:04 98.9 80 18 99 Room Air Lab Results Laboratory Tests Test 05/01/19 17:05 White Blood Count 6.3 x10^3/uL (4.0-11.0) Red Blood Count 1.74 x10^6/uL (4.30-5.70) L Hemoglobin 5.8 g/dL (13.0-17.5) *L Hematocrit 17.0 % (39.0-53.0) *L Mean Corpuscular Volume 99 fL (79-100) Mean Corpuscular Hemoglobin 33 pg (25-35) Mean Corpuscular Hemoglobin Concent 33 g/dL (31-37) Red Cell Distribution Width 15.5 % (11.5-14.5) H Platelet Count 365 x10^3/uL (140-400) Neutrophils (%) (Auto) 75 % (31-73) H Lymphocytes (%) (Auto) 14 % (24-48) L Monocytes (%) (Auto) 9 % (0-9) Eosinophils (%) (Auto) 2 % (0-3) Basophils (%) (Auto) 0 % (0-3) Neutrophils # (Auto) 4.7 x10^3uL (1.8-7.7) Lymphocytes # (Auto) 0.9 x10^3/uL (1.0-4.8) L Monocytes # (Auto) 0.6 x10^3/uL (0.0-1.1) Eosinophils # (Auto) 0.1 x10^3/uL (0.0-0.7) Basophils # (Auto) 0.0 x10^3/uL (0.0-0.2) EKG EKG [] Radiology/Procedures Radiology/Procedures [] Course & Med Decision Making Course & Med Decision Making Pertinent Labs and Imaging studies reviewed. (See chart for details) [] Dragon Disclaimer Dragon Disclaimer This electronic medical record was generated, in whole or in part, using a voice recognition dictation system. Departure Departure: Impression: Primary Impression: Blood loss anemia Disposition: ADMITTED INPATIENT Admitting Physician: Adeline Strauss Condition: GOOD Referrals: JOE JOYCE DO (PCP) CLAUDIA MARTINEZ Jr., DO May 01, 2019 18:01
[2019-05-01] MEDS ORDERED: MORPHINE SULFATE 2 MG/ML DISP.SYRIN. IV PRN (18:15)
[2019-05-01] MEDS ORDERED: ONDANSETRON PF 4 MG/2 ML VIAL. IV PRN (18:15)
[2019-05-01 19:24] LABS: % BANDS 9 % (0-9); % BASOS 1 % (0-3); % EOS 1 % (0-5); % LYMPHS 13 % (24-48); % METAS 3 % (0-0); % MONOS 16 % (0-10); % SEGS 57 % (35-66); PLT ESTIMATE ADEQUATE (ADEQUATE)
[2019-05-01 19:25] LABS: ANISOCYTOSIS MOD; HYPOCHROMIA MOD; ROULEAUX PRESENT
[2019-05-01 19:26] LABS: BURR CELLS OCC; OVALOCYTES FEW; SCHISTOCYTES OCC
[2019-05-01 19:30] LABS: HEMOGLOBIN 5.8 g/dL (13.0-17.5)
--- NOTE | 2019-05-01 21:41 | NUR ---
Blood transfusion started at 2126. Tubing primed with NS, then primed with blood. Transfusion started at 35 mL/hr. Pt monitored closely x 15 min vital signs and visual assessment. No reaction noted, transfusion increased to 125 mL/hr. PT will be monitored.
[2019-05-01 21:45] VITALS: BP 96/52
[2019-05-01 22:19] VITALS: BP 96/60
[2019-05-01 22:33] VITALS: BP 91/52
[2019-05-01 23:12] VITALS: BP 95/57
[2019-05-01] MEDS: METHYL SALICYLATE/MENTHOL TOPICAL OINTMENT 57GM TUBE. TP PRN (23:59)
[2019-05-02] VITALS (15 sets, daily range): BP systolic 94–126; BP diastolic 52–69
--- NOTE | 2019-05-02 02:52 | NUR ---
Blood transfusion started at 0237. Tubing primed with NS, then primed with blood. Transfusion started at 45 mL/hr. Pt monitored closely x 15 min vital signs and visual assessment. No reaction noted, transfusion increased to 125 mL/hr. Will continue to monitor.
[2019-05-02 06:53] LABS: BASO % 1 % (0-3); EOS % 1 % (0-3); HEMATOCRIT 30.3 % (39.0-53.0); HEMOGLOBIN 10.1 g/dL (13.0-17.5); LYMPH # 0.4 x10^3/uL (1.0-4.8); LYMPH % 9 % (24-48); MEAN CORPUSCULAR HEMOGLOBIN 32 pg (25-35); MEAN CORPUSCULAR HGB CONC 33 g/dL (31-37); MEAN CORPUSCULAR VOLUME 95 fL (79-100); MONO # 0.4 x10^3/uL (0.0-1.1); MONO % 8 % (0-9); NEUT # 4.1 x10^3uL (1.8-7.7); NEUT % 83 % (31-73); PLATELET COUNT 280 x10^3/uL (140-400); RED BLOOD COUNT 3.18 x10^6/uL (4.30-5.70); RED CELL DISTRIBUTION WIDTH 16.4 % (11.5-14.5)
[2019-05-02 07:04] LABS: CALCIUM 7.8 mg/dL (8.5-10.1); CREATININE 0.8 mg/dL (0.7-1.3); GFR 96.1
[2019-05-02] MEDS ORDERED: POLYETHYLENE GLYCOL 3350 17 GM PACKET. PO PRN (10:15)
--- NOTE | 2019-05-02 14:41 | HP ---
ADMIT DATE: 05/01/2019 HISTORY OF PRESENT ILLNESS: The patient is a 68-year-old male patient who presented with significant history of squamous cell cancer of his left forearm that frequently bleeds. He presented requesting cauterization of the wound as well as blood transfusion. The patient stated that he is feeling weak all over. His red blood count has dropped significantly. He denies any chest pain or shortness of breath. Denied any fever. He was evaluated in the Emergency Room and was found to have hemoglobin 5.8, hematocrit 17 with normal white cell count and platelets. He was transfused 2 units of packed RBCs and was admitted for further evaluation and treatment. PAST MEDICAL HISTORY: Significant for: 1. Extensive left forearm squamous cell carcinoma. 2. Atrial fibrillation, rate controlled, well anticoagulated with apixaban. 3. Coronary artery disease, status post percutaneous coronary intervention with stent deployment. 4. Hypertension. 5. Hyperlipidemia. 6. Obstructive sleep apnea. 7. Gastroesophageal reflux disease. 8. Type 2 diabetes mellitus. 9. Severe protein-calorie malnutrition. He has also had severe constipation, likely multifactorial and in fact on last admission, he came with severe obstipation and constipation. PAST SURGICAL HISTORY: Significant for PCI with drug-eluting stent deployment. He has also had resection of his left parotid gland with resultant left facial nerve paralysis. FAMILY HISTORY: Significant for type 2 diabetes and hypertension. SOCIAL HISTORY: He is and lives with his . He does not smoke, drink alcohol or use any recreational drugs. ALLERGIES: He has no known drug allergies. MEDICATIONS: He is currently on following medications: He is currently on apixaban 5 mg p.o. b.i.d., digoxin 125 mcg once a day, simvastatin 20 mg at bedtime, metoprolol tartrate 50 mg twice a day, lisinopril 2.5 mg daily, aspirin 81 mg once a day; fentanyl patch 75 mcg per hour, topically q. 72 hours; oxycodone/APAP 10/325 one tablet 4 times a day. He is on Lyrica 75 mg twice a day, potassium gluconate 90 mg daily, Colace 100 mg twice a day with meals; polyethylene glycol 17 grams twice a day with meals, polyethylene glycol 1 packet daily; prednisone 10 mg once a day. REVIEW OF SYSTEMS: As per history of present illness. PHYSICAL EXAMINATION: GENERAL: On arrival to the Emergency Room, the patient was pale, cachectic, but no jaundice or cyanosis. No lymphadenopathy, no thyromegaly. No jugular venous distention. No limb edema. VITAL SIGNS: His heart rate was 87, blood pressure was 103/62, temperature was 97.9, respiratory rate was 16, and oxygen saturation was 96% on room air. HEAD, EYES, EARS, NOSE AND THROAT: Showed normocephalic, atraumatic. NECK: Supple. HEART: Showed normal first and second heart sounds with no gallop or murmur. CHEST: Clear to auscultation. No crepitation or rhonchi. ABDOMEN: Scaphoid, soft, nontender. NEUROLOGIC: He was awake, alert, responding appropriately. He has left side lower motor neuron facial palsy due to resection of his left parotid gland; however, he is able to move his extremities without difficulty, ambulates without assistance or assistive devices. LABORATORY DATA: On arrival to the Emergency Room, his white cell count was 6300, hemoglobin 5.8, hematocrit 17, MCV 99, and platelet count 365,000. His serum sodium was 141, potassium 3.9, chloride 105, bicarbonate 29, anion gap of 7, BUN 13, creatinine 0.9, estimated GFR was 84 mL per minute. His glucose was 115 and calcium was 7.7. ASSESSMENT AND PLAN: In summary, this is a 68-year-old male patient who has been in and out multiple times with anemia. Unfortunately, continues to be on apixaban and was admitted with acute blood loss anemia. He was typed and crossed twice for 2 units and was admitted to receive 2 units of packed red blood cells. We will discuss with him the need to perhaps discontinue his apixaban as risk of continuing with apixaban is higher than the risk of clotting and monitor his hemoglobin and hematocrit and transfuse him as needed. TOM BARAHONA MD DR: DARYL/gricel JOB#: [id number] / [id number]
[2019-05-02 14:43] LABS: BASO % 0 % (0-3); EOS % 0 % (0-3); HEMATOCRIT 21.4 % (39.0-53.0); HEMOGLOBIN 7.3 g/dL (13.0-17.5); LYMPH # 0.5 x10^3/uL (1.0-4.8); LYMPH % 8 % (24-48); MEAN CORPUSCULAR HEMOGLOBIN 33 pg (25-35); MEAN CORPUSCULAR HGB CONC 34 g/dL (31-37); MEAN CORPUSCULAR VOLUME 95 fL (79-100); MONO # 0.5 x10^3/uL (0.0-1.1); MONO % 8 % (0-9); NEUT # 5.4 x10^3uL (1.8-7.7); NEUT % 84 % (31-73); PLATELET COUNT 340 x10^3/uL (140-400); RED BLOOD COUNT 2.25 x10^6/uL (4.30-5.70); RED CELL DISTRIBUTION WIDTH 16.7 % (11.5-14.5); WHITE BLOOD COUNT 6.5 x10^3/uL (4.0-11.0)
[2019-05-02] MEDS ORDERED: ACETAMINOPHEN 325 MG TABLET PO ONE (16:30)
[2019-05-02] MEDS ORDERED: GELATIN SPONGE SIZE 100. TP ONE (16:30)
--- NOTE | 2019-05-02 16:54 | NUR ---
Blood Transfusion started at [address]'s order. Tubing primaed with Normal Saline and then primed with blood. Transfusion started at 25 mL/hr. Pt monitored closely x 15 min. No reaction noted, transfusion increased to 125 mL/hr. Will continue to monitor and assessed per protocol.
--- NOTE | 2019-05-02 17:35 | NUR ---
Wound Care Received call from KAE Osullivan re: active bleeding from pt's left arm lesion, instructed RN to possibly apply a VPad to bleeding area and pressure dressing, and to call physician. Received call back that MD gave orders for denial resolution specialist to evaluate. As WCRNs arrived at [facility], met Dr. Strauss who stated he had ordered a gelfoam product that helps with hemostasis and to apply. Left arm dressing removed, on lateral edge of lesion was a small area of bleeding noted. Wound cleaned, lesion is raised with areas of red granulation tissue and eschar and slough scattered throughout, and entire lesion is a hypergranulated growth, with moderate odor. Gelfoam applied to oozing area of bleed, then wound bed covered with Xeroform gauze to keep moist and assist with odor control, then covered with ABD and kerlix. Instructed RN to leave in place until tomorrow, unless area bleeds through, then place a VPad to bleed, Xeroform, ABD and kerlix, RN v/u. Will continue to follow for wound care needs.
[2019-05-02] MEDS: MORPHINE SULFATE 2 MG/ML DISP.SYRIN. IV PRN ×2 (18:24→21:17)
[2019-05-02] MEDS: METHYL SALICYLATE/MENTHOL TOPICAL OINTMENT 57GM TUBE. TP PRN (21:17)
[2019-05-02 21:47] LABS: BASO % 0 % (0-3); EOS % 0 % (0-3); HEMATOCRIT 31.1 % (39.0-53.0); HEMOGLOBIN 10.4 g/dL (13.0-17.5); LYMPH # 0.4 x10^3/uL (1.0-4.8); LYMPH % 6 % (24-48); MEAN CORPUSCULAR HEMOGLOBIN 32 pg (25-35); MEAN CORPUSCULAR HGB CONC 33 g/dL (31-37); MEAN CORPUSCULAR VOLUME 95 fL (79-100); MONO # 0.4 x10^3/uL (0.0-1.1); MONO % 6 % (0-9); NEUT # 6.6 x10^3uL (1.8-7.7); NEUT % 88 % (31-73); PLATELET COUNT 324 x10^3/uL (140-400); RED BLOOD COUNT 3.28 x10^6/uL (4.30-5.70); WHITE BLOOD COUNT 7.5 x10^3/uL (4.0-11.0)
--- NOTE | 2019-05-02 23:36 | NUR ---
Transfusion completed at 1940. PT with slight elevation in temperature. PT noted with no complaints outside of his normal pain for his FA and neck. Medication applied. PT incontinent and changed as well at this time.
[2019-05-03] MEDS: MORPHINE SULFATE 2 MG/ML DISP.SYRIN. IV PRN ×3 (00:37→09:06)
[2019-05-03 00:38] VITALS: BP 132/60
[2019-05-03 04:00] VITALS: BP 146/73
[2019-05-03 06:47] LABS: HEMATOCRIT 21.1 % (39.0-53.0); HEMOGLOBIN 7.3 g/dL (13.0-17.5); RED BLOOD COUNT 2.23 x10^6/uL (4.30-5.70); RED CELL DISTRIBUTION WIDTH 15.6 % (11.5-14.5); WHITE BLOOD COUNT 5.7 x10^3/uL (4.0-11.0)
[2019-05-03 07:05] LABS: ALBUMIN 1.8 g/dL (3.4-5.0); ALBUMIN/GLOBULIN RATIO 0.6 (1.0-1.7); CALCIUM 7.5 mg/dL (8.5-10.1); CREATININE 0.7 mg/dL (0.7-1.3); GFR 112.1; POTASSIUM 3.6 mmol/L (3.5-5.1); TOTAL BILIRUBIN 0.3 mg/dL (0.2-1.0)
[2019-05-03 10:55] VITALS: BP 108/62
[2019-05-03] MEDS ORDERED: ONDANSETRON PF 4 MG/2 ML VIAL. IVP PRN (12:30)
[2019-05-03 13:43] LABS: HEMATOCRIT 21.4 % (39.0-53.0); HEMOGLOBIN 7.2 g/dL (13.0-17.5)
--- NOTE | 2019-05-03 17:02 | NUR ---
Pt today has been pleasant with rounds of anxiety. Changed dressing and applied Xerofoam with Abdomincal pads, Keflex tape, Coban, and sleeve applied to L arm. Repeat HH drawn today. HGB- 7.2, HCT-21.4. Pt transferred to transfer to [facility].
[2019-05-03 17:05] VITALS: BP 109/66
--- NOTE | 2019-05-03 18:34 | NUR ---
Discharge Note: KEVIN VILLA [facility] Discharge instructions and discharge home medications reviewed with Patient and a copy given. All questions have been answered and understanding verbalized. The following instructions and handouts were given: pt transferred to [facility] Discontinued lines and drains: Pt left with Port a cath in tact. Patient discharged to [facility].
--- NOTE | 2019-05-04 00:58 | DS ---
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 We have discontinued his apixaban and his aspirin; however, he continues to come and require multiple units of packed RBCs and I had a discussion with him and his regarding amputation of his left forearm as the only way to prevent him from bleeding further to which he agreed and was transferred to [facility] to consult the orthopedic surgeon with a plan to amputate his left forearm. PHYSICAL EXAMINATION: GENERAL: When I saw him this afternoon, he looked well and was clearly in no apparent respiratory distress. NECK: No pallor, jaundice or cyanosis. No lymphadenopathy, no thyromegaly. No jugular venous distention, bilateral lower limb edema. VITAL SIGNS: His heart rate was 94, blood pressure was 108/62, temperature was 98.3, respiratory rate 20, and oxygen saturation was 95%. HEAD, EYES, EARS, NOSE AND THROAT: Normocephalic, atraumatic. NECK: Supple. HEART: Showed normal first and second heart sounds with no gallop, rub or murmur. CHEST: Showed central trachea, equal bilateral expansion, air entry, vesicular sounds. No crepitation or rhonchi. ABDOMEN: Distended, soft, nontender. 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 However, he is able to move his extremities without difficulty. 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 The bleeds are arterial and over the last 2 days, we have given him 4 units of packed RBCs and his wound dressing has changed numerous times, applied pressure without success. His H and H is drifting down again. Initially, he came to us with a hemoglobin of 5.8 and hematocrit 17, given 2 units of packed RBCs. Hemoglobin went up initially to 7.3 and 21, given 2 more units of packed RBCs went up to 10.4 and 31.1 and now the hemoglobin is drifting again, he was actively bleeding. His chemistry is stable with BUN of 7, creatinine 0.7 and therefore, a decision was made to transfer him to [facility] to continue on all his medication except apixaban and aspirin. FINAL DISCHARGE DIAGNOSES: Acute blood loss anemia, bleeding from tumor. 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 Other medical problems include atrial fibrillation, hypertension, congestive heart failure, ischemic cardiomyopathy. TOM BARAHONA MD DR: DARYL/gricel JOB#: [id number] / [id number]
== END 2019-05-03 18:36 | disposition home or self-care (01) | DRG 843 ==
LOC: ER 15:48 → 1 SOUTH 17:50
PROVIDERS: ADMIT Internal Medicine; ATTEND Internal Medicine
PROC: 30233N1 Transfusion of Nonautologous Red Blood Cells into Peripheral Vein, Percutaneous Approach (ICD-10-PCS; principal; 2019-05-01)
DX: C76.42 Malignant neoplasm of left upper limb (principal); E43 Unspecified severe protein-calorie malnutrition; D62 Acute posthemorrhagic anemia; E11.9 Type 2 diabetes mellitus without complications; E78.5 Hyperlipidemia, unspecified; I11.0 Hypertensive heart disease with heart failure; G47.33 Obstructive sleep apnea (adult) (pediatric); I25.10 Atherosclerotic heart disease of native coronary artery without angina pectoris; I25.5 Ischemic cardiomyopathy; I48.91 Unspecified atrial fibrillation; K21.9 Gastro-esophageal reflux disease without esophagitis; I50.9 Heart failure, unspecified; Z79.01 Long term (current) use of anticoagulants; Z82.49 Family history of ischemic heart disease and other diseases of the circulatory system; Z83.3 Family history of diabetes mellitus; Z98.61 Coronary angioplasty status; F32.9 Major depressive disorder, single episode, unspecified; F41.9 Anxiety disorder, unspecified; Z85.89 Personal history of malignant neoplasm of other organs and systems; Z98.890 Other specified postprocedural states; Z68.24 Body mass index [BMI] 24.0-24.9, adult
CPT/HCPCS: 36415; 80048; 80053; 85007; 85014; 85018; 85025; 85027; 85049; 85379; 85384; 85610; 85730; 86850; 86900; 86901; 86920; J2270; J2405; P9016; 99285-25